=== PATIENT | female | born 1995 | race Caucasian/White ===

== ENCOUNTER 2021-02-15 15:20 | Outpatient (CLI) | payer OTHER, SELFPAY ==
[2021-02-15 16:16] LABS: Basophils Absolute Auto 0.05 K/mm3 (0.00-0.10); Basophils Percent Auto 0.3 % (0.0-1.0); Eosinophils Percent Auto 0.7 % (1.0-6.0); Hematocrit 41.1 % (35.0-49.0); Hemoglobin 13.5 g/dL (12.0-15.0); Immature Granulocyte Absolute 0.05 K/mm3 (0.00-0.00); Immature Granulocyte Percent A 0.3 % (0.0-0.0); Lymphocytes Absolute Auto 2.03 K/mm3 (1.10-4.50); Lymphocytes Percent Auto 14.1 % (18.0-42.0); Mean Corpuscular HGB Conc 32.8 g/dL (32.0-36.0); Mean Corpuscular Hemoglobin 28.7 pg (27.0-31.0); Mean Corpuscular Volume 87.3 fL (78.0-102.0); Mean Platelet Volume 9.5 fl (9.2-11.8); Monocytes Percent Auto 6.9 % (2.0-11.0); Neutrophils Absolute Auto 11.2 K/mm3 (1.7-7.2); Neutrophils Percent Auto 77.7 % (50.0-70.0); Platelet Count Result 293 K/mm3 (150-420); Red Blood Count 4.71 M/mm3 (4.20-5.40); Red Cell Distribution Width 13.2 % (11.6-14.4); White Blood Count 14.4 K/mm3 (4.8-10.8)
[2021-02-15 16:34] LABS: Alanine Aminotransferase 26 U/L (14-59); Albumin Level 3.8 g/dL (3.4-5.0); Alkaline Phosphatase 72 U/L (46-116); Anion Gap 10 mmol/L (8-16); Aspartate Amino Transferase < 10 U/L (15-37); Bilirubin,Total 0.6 mg/dL (0.00-1.00); Blood Urea Nitrogen 10 mg/dL (7-18); Calcium 8.7 mg/dL (8.5-10.1); Carbon Dioxide 28 mmol/L (21-32); Chloride 105 mmol/L (98-108); Estimated Glomerular Filt Rate > 60; Glucose 108 mg/dL (70-99); Osmolality Calculated 296 mOsm/kg (285-295); Potassium 4.2 mmol/L (3.5-5.1); Sodium 143 mmol/L (136-145); Total Protein 7.3 g/dL (6.4-8.2)
== END 2021-02-15 15:21 | disposition home or self-care (01) ==
PROVIDERS: PCP Internal Medicine; Visit Provider Internal Medicine
DX: R19.7 Diarrhea, unspecified (principal)
CPT/HCPCS: 36415; 80053; 85025; 87324

== ENCOUNTER 2021-09-06 09:48 | Outpatient (CLI) | payer OTHER, SELFPAY ==
--- NOTE | ~2021-09-06 | XR_ITS ---
XR foot LT min 3V DATE: 09/06/2021 10:21 INDICATION: Fracture follow-up TECHNIQUE: 4 views COMPARISON: None FINDINGS: No fracture or dislocation, periosteal reaction or bone destruction. No erosive change. IMPRESSION: Negative Reviewed, dictated and finalized at location B. IMPRESSION: Negative
== END 2021-09-06 09:49 | disposition home or self-care (01) ==
LOC: CHSIMG 09:51
PROVIDERS: PCP Internal Medicine; Visit Provider Internal Medicine
DX: S92.352D Displaced fracture of fifth metatarsal bone, left foot, subsequent encounter for fracture with routine healing (principal)
CPT/HCPCS: 73630

== ENCOUNTER 2021-10-05 09:46 | Outpatient (CLI) | payer OTHER, SELFPAY ==
--- NOTE | ~2021-10-05 | XR_ITS ---
XR foot LT min 3V DATE: 10/05/2021 10:02 INDICATION: Fracture follow up TECHNIQUE: 4 views COMPARISON: 09/06/2021 left foot FINDINGS: No fracture or dislocation, periosteal reaction or bone destruction. IMPRESSION: Negative Reviewed, dictated and finalized at location A. IMPRESSION: Negative
== END 2021-10-05 09:47 | disposition home or self-care (01) ==
LOC: CHSIMG 09:48
PROVIDERS: PCP Internal Medicine; Visit Provider Internal Medicine
DX: S92.902D Unspecified fracture of left foot, subsequent encounter for fracture with routine healing (principal)
CPT/HCPCS: 73630

== ENCOUNTER 2024-06-10 08:26 | Outpatient (CLI) | payer OTHER, SELFPAY ==
--- OUTSIDE RECORDS SUMMARY | 2024-06-10 08:31 | XMS_ITS | Encounter Summary ---
Author Organization [facility] Address [address] [place] [address] Care Team Providers Care Rn Surgery Name Role Phone López Hutchinson MD Primary Care Provider [phone] Reason for Visit * Reason Onset Date Comments Scheduling 11/27/2023 EGD Encounter Details Date Type Department Care Team (Late st Contact Info) Description 11/27/2023 Telephone [facility] [address] [place] [address] Sandy Johnson MD [address] [place] [address] Scheduling (EGD) Social History Tobacco Use Types Packs/Day Years Used Date Smoking Tobacco: Former Cigarettes Q uit: 01/26/2019 Smokeless Tobacco: Never Alcohol Use Standard Drinks/Week Comments No 0 (1 standard drink = 0.6 oz pur e alcohol) Overall Financial Resource Strain (CARDIA) Answe r Date Recorded How hard is it for you to pa y for the very basics like food, housing, medical care, and heating? Not hard at all 07/08/2022 PHQ-2 Answer Date Recorded Patient Health Questionnaire-2 Score 1 07/30/2023 [facility] [place] [facility] Occupat ional [facility] - Occupational Stress Questionnaire Answer Date Recorded Do you feel stress - tense, restless, nervous, or anxious, or unable to sleep at night because your mind is troubled all the time - these days? Not at all 07/08/2022 Hunger Vital Sign Answer Date Recorded Within the past 12 months, y ou worried that your food would run out before you got the money to buy more. Never true 07/09/19 23 Within the past 12 months, t he food you bought just didn't last and you didn't have money to get more. Never true 07/08/2022 PRAPARE - Transportation Answer Date Re corded In the past 12 months, has l ack of transportation kept you from medical appointments or from getting medications? No 06/26 In the past 12 months, has l ack of transportation kept you from meetings, work, or from getting things needed for daily living? No 07/08/2022 Housing Stability Vital Sign Answer Jaden e Recorded In the last 12 months, was t here a time when you were not able to pay the mortgage or rent on time? No 07/08/2022 In the last 12 months, how many places have you lived? 1 07/08/2022 In the last 12 months, was t here a time when you did not have a steady place to sleep or slept in a half-way (including now)? No 07/08/2022 Sex and Gender Information Value Date Recorded Sex Assigned at Not on file Gender Identity Not on file Sexual Orientation Not on file documented as of this encounter Functional Status Functional Status Response Date of Assess ment Is person deaf or have serious hearing difficult y? No 07/10/2022 Is person blind or have serious difficulty seein g? No 07/10/2022 Does person have serious dif ficulty walking/climbing stairs? No 07/10/2022 Does person have difficulty dressing/bathing? No 07/10/2022 Does person have difficulty doing errands alone? No 07/10/2022 Cognitive Status Response Date of Assessm ent Does person have difficulty concentrating/remembering/making decisions? No 07/10/2022 documented as of this encounter Miscellaneous Notes * Telephone Encounter - Mirela Castanon - 11/27/2023 12:02 PM CDT [facility] call #[phone] currently is not a working number. Called #[phone], [facility] This is [facility] [employer]. Please have Itzel call #[phone] Sent Opentopic message cancelling post op EGD scheduled with Dr. Johnson for 12/03/23. is out - vacation documented in this encounter Plan of Treatment Upcoming Encounters Date Type Department Care Team (Latest Contact Info) Description 06/30/2024 8:55 AM POST ANESTHESIA ROOM NURSE Hospital Encounter [facility] [address] [place] [address] Sandy Johnson MD [address] [place] [address] Surgery General 06/30/2024 8:55 AM POST ANESTHESIA ROOM NURSE - 06/30/2024 9:21 AM POST ANESTHESIA ROOM NURSE Surgery [facility] [address] [place] [address] Sandy Johnson MD [address] [place] [address] ESOPHAGOGASTRODUODENOSCOPY WITH BIOPSY 07/13/2024 1:00 PM CDT Office Visit [facility] [address] [place] [phone] Bianca Rico, TOOL POLISHER-FOOD SERVICE AIDE [address], [place] [address] 07/13/2024 1:30 PM CDT Clinical Support [facility] [address] [place] [phone] Scheduled Procedures Name Priority Associated Diagnoses Date/Ti nc ESOPHAGOGASTRODUODENOSCOPY ( EGD) BIOPSY Gastroesophageal reflux disease, unspecified whether esophagitis present 06/30/2024 8:55 AM POST ANESTHESIA ROOM NURSE documented as of this encounter Visit Diagnoses Not on filedocumented in this encounter Care Teams Rn Surgery Relationship Specialty Start Date End Date López Hutchinson MD [address] [place] [address] PCP - General Internal Medicine 11/15/21 documented as of this encounter
--- OUTSIDE RECORDS SUMMARY | 2024-06-10 08:31 | XMS_ITS ---
Author Organization [facility] Address [address] [place] [address] Care Team Providers Care Pump Servicer Supervisor Name Role Phone Jayde Navarrete Primary Care Provider REASON FOR VISIT Refill Medications Medication SIG (Take, Route, Frequency, Duration) Notes Start Date End Date Status ARIPiprazole 2 MG 1 tablet Orally Once a day for 7 days Active Venlafaxine HCl ER 150 MG 1 capsule with food Orally Once a day for 7 days Active Encounters Encounter Location Date Provider Diagnosis [address] [address] 04/01/2024 Jayde Navarrete Depression, major, recurrent F33.9 Assessments Encounter Date Diagnosis (ICD Code) Assessment Notes Treatment Notes Treatment Clinical Notes Section Notes 04/01/2024 Depression, major, recurrent (ICD-10 - F33.9) Plan Of Treatment Medication Medication Name Sig Start Date Stop Date Notes ARIPiprazole 2 MG 1 tablet Orally Once a day for 7 days Venlafaxine HCl ER 150 MG 1 capsule with food Orally Once a day for 7 days Progress Notes * SEAriel ARIZMENDIpennyDOB: [birth year] (29 yo F)Acc No.[id number]:04/01/2024 Patient: Itzel GROSS :1995 A ge:29 Y S ex:Female Address:[address] [place] [address] * Refills Continue ARIPiprazole Tablet, 2 MG, Orally, 7 Tablet, 1 tablet, Once a day, 7 days Continue Venlafaxine HCl ER Capsule Extended Release 24 Hour, 150 MG, Orally, 7 Capsule, 1 capsule with food, Once a day, 7 days * true * Date: Generated for Paulo albert/Casimiro/Lucy on: 0 06/10/2024 08:31 AM FINANCIAL EXAMINER
--- OUTSIDE RECORDS SUMMARY | 2024-06-10 08:31 | XMS_ITS | Patient Health Record ---
Author Organization [facility] Address [address] [place] [address] Care Team Providers Care Vice President Network Development Name Role Phone Jayde Navarrete Primary Care Provider [phone] Caitie Pacheco Unavailable [phone] Kaitlin Alcaraz Unavailable [phone] Allergies No Known Allergies Reason For Referral Reason Start individual the rapy Diagnosis 1 Depression, major, r ecurrent (F33.9) Referral Organization [facility] Referring Provider First Name Jayde Referring Provider Last Name Landon Referring Provider Speciality Psychiatry Referred Provider Specialty Behavioral [facility] Clinical Notes Dee Campos 09/17 01:19:02 PM >Staff SAMSON talks to Consumer. Consumer is in agreement with referral. Staff SAMSON provides Consumer information on how to get connected with [facility] therapy program. When asked, Consumer is in agreement with getting connected to [facility] to begin process. Consumer transferred. Referral addressed, closing. Referral Priority Routine Reason Needs assistance get ting a new therapist through [facility] Diagnosis 1 Depression, major, r ecurrent (F33.9) Referral Organization [facility] Referring Provider First Name Caitie Referring Provider Last Name Tara Referring Provider Speciality Behavioral Health Referred Provider Specialty Behavioral [facility] Clinical Notes Silvia Faulkner 01/14/2024 11:11:18 AM >[facility] received a referral for a client to initiate therapy. She has a provider currently, but she is wanting someone new. The client realizes that she needs to call [facility] to inquire about switching therapists. Referral Priority Routine Medications Medication SIG (Take, Route, Frequency, Duration) Notes Start Date End Date Status Calcium 500-2.5 MG-MCG 1 tablet with a m eal Orally Once a day Active Multivitamin - 1 tablet Orally Once a day Active Venlafaxine HCl ER 150 MG 1 capsule with food Orally Once a day for 30 days Active ARIPiprazole 2 MG 1 tablet Orally Once a day for 30 days Active hydrOXYzine HCl 25 MG 1-2 tablets as nee ded Orally twice a day for 30 days 04/06/2024 Active Social History Tobacco Use: Social History Observation Description Date Details (start date - stop date) Never Smoker NA - NA Tobacco Control (Standard) Question Answer Notes Tobacco use: Nonsmoker AUDIT-C (Standard) Question Answer Notes Did you have a drink containing alcohol in the p ast year? No Points 0 Interpretation Negative Problems Problem Type SNOMED Code ICD Code Onset Dates Problem Status W/U Status Risk Notes Problem Attention deficit hyperactivity disorder (809583145) ADHD (attention deficit hyperactivity disorder) (F90.9) Active confirmed Problem Generalized anxiety disorder (88270190) TAMAR (generalized anxiety disorder) (F41.1) Active confirmed Problem Recurrent major depression (67141319) Depression, major, recurrent (F33.9) Active confirmed Encounters Encounter Location Date Provider Diagnosis [address] [address] 06/24/2023 Kaitiln Alcaraz TAMAR (generalized anxiety disorder) F41.1 ; Depression, major, recurrent F33.9 and ADHD (attention deficit hyperactivity disorder) F90.[address] [address] 08/05/2023 Jayde Navarrete TAMAR (generalized anxiety disorder) F41.1 ; Depression, major, recurrent F33.9 and ADHD (attention deficit hyperactivity disorder) F90.[address] [address] 09/18/2023 Jayde Navarrete TAMAR (generalized anxiety disorder) F41.1 ; Depression, major, recurrent F33.9 and ADHD (attention deficit hyperactivity disorder) F90.[address] [address] 12/16/2023 Jayde Navarrete TAMAR (generalized anxiety disorder) F41.1 ; Depression, major, recurrent F33.9 and ADHD (attention deficit hyperactivity disorder) F90.9 [facility] [address], [place] [address] 01/13/2024 Kymelissa Navarrete TAMAR (generalized anxiety disorder) F41.1 ; Depression, major, recurrent F33.9 and ADHD (attention deficit hyperactivity disorder) F90.9 [facility] [address], [place] [address] 04/06/2024 Jayde Navarrete TAMAR (generalized anxiety disorder) F41.1 ; Depression, major, recurrent F33.9 and ADHD (attention deficit hyperactivity disorder) F90.[address] [address] 06/17/2023 Kaitlin Alcaraz Depression, major, recurrent F33.[address] [address] 09/10/2023 Jayde Navarrete Depression, major, recurrent F33.[address] [address] 09/18/2023 Caitie Pacheco [facility] [address] [place] [address] 12/05/2023 Jayde Navarrete [facility] [address], [place] [address] 12/16/2023 Jayde Navarrete [address] [address] 04/01/2024 Jayde Navarrete Depression, major, recurrent F33.9 Assessments Encounter Date Diagnosis (ICD Code) Assessment Notes Treatment Notes Treatment Clinical Notes Section Notes 04/01/2024 Depression, major, recurrent (ICD-10 - F33.9) 04/06/2024 TAMAR (generalized anxiety disorder) (ICD-10 - F41.1) 08/05/2023 TAMAR (generalized anxiety disorder) (ICD-10 - F41.1) 06/24/2023 TAMAR (generalized anxiety disorder) (ICD-10 - F41.1) 06/17/2023 Depression, major, recurrent (ICD-10 - F33.9) 01/13/2024 TAMAR (generalized anxiety disorder) (ICD-10 - F41.1) 12/16/2023 TAMAR (generalized anxiety disorder) (ICD-10 - F41.1) 09/18/2023 TAMAR (generalized anxiety disorder) (ICD-10 - F41.1) 09/10/2023 Depression, major, recurrent (ICD-10 - F33.9) 09/18/2023 Depression, major, recurrent (ICD-10 - F33.9) 12/16/2023 Depression, major, recurrent (ICD-10 - F33.9) 01/13/2024 Depression, major, recurrent (ICD-10 - F33.9) 06/24/2023 Depression, major, recurrent (ICD-10 - F33.9) Reasons, potential benefits, interactions and side effects of all medications were discussed. The Patient/Guardian asked appropriate questions, appeared to understand the answers, and decided to accept the treatment and continue being followed. Alternatives and expected course without treatment were reviewed. The Patient/Guardian is aware of the need to contact the office or return for an earlier appointment if any problems or concerns arise. May also contact the 24-hour crisis hotline ([facility] refer to the closest emergency room or call 911 if new symptoms arise of existing symptoms worsen. The Patient/Guardian is aware that this would apply to symptoms like: suicidal ideation, homicidal ideation, high risk behaviors, manic symptoms, psychotic symptoms, physical symptoms, or any other symptoms that may be dangerous to self or others. Greater than 50% of time spent on coordination and counseling where psychopharmacology as well as psychotherapeutic interventions were discussed along with review of treatments in the past. Education provided concerning need for adequate hydration. Patient/Guardian verbalized understanding of education, treatment plan and follow up. May self-administer or be administered own oral medication per [facility]. Provided informed consent with understanding of side effects, risks and benefits as well as alternative treatments as previously discussed and with the above recommended medications ang other aspects of the treatment program. Agrees to return sooner if symptoms worsen or suicidal or homicidal ideations occur. support and education provided concerning illness and treatment plan, risks and benefits, pt verbalized understanding of the same and agreeable 08/05/2023 Depression, major, recurrent (ICD-10 - F33.9) 06/24/2023 ADHD (attention deficit hyperactivity disorder) (ICD-10 - F90.9) 04/06/2024 Depression, major, recurrent (ICD-10 - F33.9) 08/05/2023 ADHD (attention deficit hyperactivity disorder) (ICD-10 - F90.9) 04/06/2024 ADHD (attention deficit hyperactivity disorder) (ICD-10 - F90.9) History: Hx of taking 10 mg of Lexapro (ineffective, trialed 1 year), Zoloft ( could not function), Strattera 2023 (nausea). 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 Hx of diagnostic hx of bipolar disorder, depression. Denies hx of abuse/trauma. Denies any previous psychiatric inpatient stays, denies hx of SI/SA/SIB/HI, AVH/paranoia. Has two sons, 8 and 4 (who have ADHD/autism). 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 Substance use includes cannabis, vaping daily. Today's visit: Patient is a 29-year-old female who presents for a psychiatric follow-up over the phone and is located in [place]. Previously seen on 01/13/2024 and during this appt was increased on Venlafaxine to 150 mg with a referral to a new therapist. Previous PHQ-9 score of 14, today is 21. Presents with worsening depression and anxiety in the setting of inconsistent medication adherence (50% of doses) and ongoing psychosocial stressors. She has a history of depression that has been present for months but reports new onset of severe anxiety for the past week. She denies any acute safety concerns but does endorse poor self-care and functional impairment. Will continue current dose of Effexor 150mg daily and Abilify 2 mg daily with a plan for improved adherence. Discussed strategies for remembering to take medication including keeping it by the kitchen sink and using a reminder system. Will add hydroxyzine 25-50 mg BID as needed for anxiety. Encouraged continuing with plans to establish care with a new therapist on 04/15/2024 to address ongoing stressors and coping skills. Unable to complete AIMS due to nature of appt, denies any irregular muscle movements; would benefit from an in person appointment. No acute safety concerns the time of this appt, she is agreeable to treatment plan and was provided an opportunity to ask questions. May self-administer medications or be administered own oral medications per [facility] protocols. Provided informed consent with understanding of side effects, adverse effects, risks and benefits as well as alternative treatments as previously discussed and with the above recommended medications & other aspects of the treatment program. Agrees to return sooner if symptoms worsen or suicidal or homicidal ideations occur. 12/16/2023 ADHD (attention deficit hyperactivity disorder) (ICD-10 - F90.9) History: Hx of taking 10 mg of Lexapro (ineffective, trialed 1 year), Zoloft ( could not function), Strattera 2023 (nausea). 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 Hx of diagnostic hx of bipolar disorder, depression. Denies hx of abuse/trauma. Denies any previous psychiatric inpatient stays, denies hx of SI/SA/SIB/HI, AVH/paranoia. Has two sons, 8 and 4 (who have ADHD/autism). 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 Substance use includes cannabis, vaping daily. Today's visit: Patient is a 28-year-old female who presents for a psychiatric follow-up over the phone and is located in [place]. Previously seen on 09/18/2023 and during this appt was increased on Prozac to 40 mg, continued on Lamictal 150 mg and referred for individual therapy. Previous PHQ-9 score of 15, today is 19. Previous tamar 13, today is 19. Recently hospitalized, 12/04/23 until the 15 for SIB and thoughts of SI. Worsening depressive and anxiety symptoms in the context of psychosocial stressors. Medications adjusted to Effexor for anxiety/depression and Abilify for mood stabilization while hospitalized and discontinued Lamictal and Prozac. Pt is hopeful about medication changes, denies any side effects and is taking them daily. Encouraged ongoing therapy, patient to contact [facility] to request switch therapists given poor fit with current one. She is requesting work note to be filled, she will send to work email. Unable to complete AIMS due to nature of appt, denies any irregular muscle movements; would benefit from an in person appointment. No acute safety concerns the time of this appt, she is agreeable to treatment plan and was provided an opportunity to ask questions. May self-administer medications or be administered own oral medications per [facility] protocols. Provided informed consent with understanding of side effects, adverse effects, risks and benefits as well as alternative treatments as previously discussed and with the above recommended medications & other aspects of the treatment program. Agrees to return sooner if symptoms worsen or suicidal or homicidal ideations occur. 09/18/2023 ADHD (attention deficit hyperactivity disorder) (ICD-10 - F90.9) History: Hx of taking 10 mg of Lexapro (ineffective, trialed 1 year), Zoloft ( could not function), Strattera 2023 (nausea). 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 Hx of diagnostic hx of bipolar disorder, depression. Denies hx of abuse/trauma. Denies any previous psychiatric inpatient stays, denies hx of SI/SA/SIB/HI, AVH/paranoia. Has two sons, 8 and 4 (who have ADHD/autism). 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 Substance use includes cannabis, vaping daily. Today's visit: Patient is a 28-year-old female who presents for a psychiatric follow-up over the phone and is located in [place]. Previously seen on 08/05/2023 and was continued on Prozac 20 mg daily, increased Lamictal to 150mg daily, and stopped Strattera 40mg due to nausea. PHQ-9 was 14, today is 15. TAMAR-7 was 15, today is 13. Pt feels Lamictal has been helpful in managing irritability and mood stabilization. Recent interpersonal stressors contributing to increased anxiety and depressive symptoms. Estimates 5 hours of sleep on average, feels energy is moderate, can complete daily activities. Continued to struggle with focus and concentration - discussed evidence based practice is stabilizing mood symptoms before treating ADHD sx. Pt would like to increase Prozac to 40 mg to further target depressive and anxiety symptoms and would also like referral for individual therapy. Denies any side effects from Lamictal or Prozac. No acute safety concerns at the time of this appt, she was provided an opportunity to ask questions and is in agreement with treatment plan. May self-administer medications or be administered own oral medications per [facility] protocols. Provided informed consent with an understanding of side effects, adverse effects, risks, and benefits as well as alternative treatments as previously discussed and with the above recommended medications & other aspects of the treatment program. Agrees to return sooner if symptoms worsen or suicidal or homicidal ideations occur. 01/13/2024 ADHD (attention deficit hyperactivity disorder) (ICD-10 - F90.9) History: Hx of taking 10 mg of Lexapro (ineffective, trialed 1 year), Zoloft ( could not function), Strattera 2023 (nausea). 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 Hx of diagnostic hx of bipolar disorder, depression. Denies hx of abuse/trauma. Denies any previous psychiatric inpatient stays, denies hx of SI/SA/SIB/HI, AVH/paranoia. Has two sons, 8 and 4 (who have ADHD/autism). 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 Substance use includes cannabis, vaping daily. Today's visit: Patient is a 28-year-old female who presents for a psychiatric follow-up over the phone and is located in [place]. Previously seen on 12/16/2023 and during this appt was continued on Abilify 2 mg and Effexor 75 mg. Previous PHQ-9 score of 19, today is 14. Reports some improvement from last visit in her depression/anxiety sx with medication changes; does report interpersonal and financial stressors that continue to play a factor in her mood stability.Has been taking Effexor 75mg daily for approximately 6 weeks with some benefit, will increase to 150mg daily to help target sx further. Continue Abilify 2mg daily for augmentation of depression, monitor for weight gain. Encourage continued use of coping skills learned in hospital. Referred to [facility] for assistance with finding new therapist. Unable to complete AIMS due to nature of appt, denies any irregular muscle movements; would benefit from an in person appointment. No acute safety concerns the time of this appt, she is agreeable to treatment plan and was provided an opportunity to ask questions. May self-administer medications or be administered own oral medications per [facility] protocols. Provided informed consent with understanding of side effects, adverse effects, risks and benefits as well as alternative treatments as previously discussed and with the above recommended medications & other aspects of the treatment program. Agrees to return sooner if symptoms worsen or suicidal or homicidal ideations occur. 08/05/2023 Other History: Hx of taking 10 mg of Lexapro (ineffective, trialed 1 year), Zoloft ( could not function), Strattera 2023 (nausea). 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 Hx of diagnostic hx of bipolar disorder, depression. Denies hx of abuse/trauma. Denies any previous psychiatric inpatient stays, denies hx of SI/SA/SIB/HI, AVH/paranoia. Has two son, 8 and 4 (who have ADHD/autism). 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 Substance use includes cannabis, vaping daily. Today's visit: Patient is a 28-year-old female who presents for a psychiatric follow-up over the phone and is located in [place], is a transfer of care and this is my first-time meeting with this patient. Previously seen on 06/24/23 by Kaitlin PASCUAL and during this appt was increased on Lamictal to 100 mg, Started on Strattera 40 mg, and continued on Prozac 20 mg for the diagnoses listed of TAMAR, MDD, ADHD. Initial PHQ-9 on score of 24, today is 14 (down 10 points), initial TAMAR-7 on 05/20/23 score of 21, today is 15, MDQ with 8 yes. Completed Adult Questionnaire ADHD screening today. Pt reports Strattera causing nausea and not liking how it makes her feel, has self discontinued. Reports benefit from Lamictal and Prozac for mood stabilization and wishes to continue taking. Does not appear to have any clear manic episodes, some symptoms reported could possibly be related to hypomania however at this time her symptoms mostly can be attributed to anxiety, depression and ADHD. Further pt denies feeling energized, activated or impulsive while taking SSRIs. Will attempt to clarify all diagnoses during future appts. Current depressive episode started 4 years ago. Reports still having irritability, depression, anxiety although less. She is agreeable to increasing Lamictal to 150 mg to help target mood symptoms further. Patient agrees with treatment plan and is provided an opportunity to ask questions. No acute safety concerns at the time of this appt. May self-administer medications or be administered own oral medications per [facility] protocols. Provided informed consent with an understanding of side effects, adverse effects, risks, and benefits as well as alternative treatments as previously discussed and with the above recommended medications & other aspects of the treatment program. Agrees to return sooner if symptoms worsen or suicidal or homicidal ideations occur. 09/18/2023 Other Plan Of Treatment No Information Insurance Providers Payer Name Payer Address Payer Phone Subscriber Number Group Number Insured Name Patient Relationship to Insured Coverage Start Date Coverage End Date [facility] Claims Department [address] [place] [address] [id number] Itzel Williamson Self - patient is the insured 3 4 [facility] Claims Department [address] [place] [address] [id number] Itzel Williamson Self - patient is the insured 4 [employer] [address] [place] [address] [id number] Itzel Williamson Self - patient is the insured 4 [facility] Claims Department [address] [place] [address] [id number] Itzel Williamson Self - patient is the insured 4 4 [employer] [address] [place] [address] [id number] Itzel Williamson Self - patient is the insured 4 4 Medical (General) History Surgical History Surgery Date(Month/Year) Gallbladder Removed Gastric Sleeve 2022 Hospitalization History Reason Date(Month/Year) Natural Child x 2 Gastric Sleeve 2022 Gallbladder Removed C-Diff 2021
--- OUTSIDE RECORDS SUMMARY | 2024-06-10 08:31 | XMS_ITS | Data Portability ---
Author Organization [employer] , [facility] Address [address] [place] [address] Assessment No assessment recorded. 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 Procedures None recorde d. Surgeries None recorde d. Imaging None recorde d. Medication Orders phenter mine 37.5 mg tablet 2022 023 [id number], [address] [facility] [address], [place], [address], 06/09/2024 14:14:34 Ortho Microno r 0.35 mg tablet 2022 023 [id number], [address], [address], 06/09/2024 14:14:28 Macrobi d 100 mg capsule [email or web address] [id number], [address] [facility], [place], [address], 06/09/2024 14:14:31 Lo Loestri n Fe 1 mg-10 mcg (24)/10 mcg (2) tablet [email or web address] [id number], [address] [facility] [address], [place], [address], 06/09/2024 14:14:24 ALIDA (28) 3 mg-0.02 mg tablet [address] [address] In [facility], [address] [address], [place], [address], 06/05/2022 10:57:37 Lexapro 10 mg tablet [email or web address] [id number], [address] [facility], [place], [address], 06/09/2024 14:13:49 Patient TargetsNo targets recorded. Patient Instructions Encounter Date Encounter Id Patient Instructions Last Modified By Organization Details Last Modified Time 10/10/2021 [id number] combination kevan h control pills: care instructions [email or web address] Not available 10/10/2021 16:16:22 Reason for Referral None Reported. Results Created Date Observation Date Name Description Value Unit Range Abnormal Flag Note LastModifiedBy Organization Detail LastModifiedTime 10/11/19 22 10/10/2021 pregn conor test, urine HCG negati ve Not Available [facility] o [address] [facility], [place], [address], 10/10/2021 15:14:13 06/05/19 23 06/05/2022 urina lysis , dipst ick Leukocytes Trace Not Available [address], [place], [address], 06/05/2022 11:35:19 06/05/19 23 06/05/2022 urina lysis , dipst ick Nitrite negati ve Not Available [address], [place], [address], 06/05/2022 11:35:19 06/05/19 23 06/05/2022 urina lysis , dipst ick Urobilinogen .2 Not Available [address], [place], [address], 06/05/2022 11:35:19 06/05/19 23 06/05/2022 urina lysis , dipst ick Protein Trace Not Available [address], [place], [address], 06/05/2022 11:35:19 06/05/19 23 06/05/2022 urina lysis , dipst ick pH 8.0 Not Available [address], [place], [address], 06/05/2022 11:35:19 06/05/19 23 06/05/2022 urina lysis , dipst ick Blood Small Not Available [address], [place], [address], 06/05/2022 11:35:19 06/05/19 23 06/05/2022 urina lysis , dipst ick Specific [place] 1.015 Not Available [facility] [address], [place], [address], 06/05/2022 11:35:19 06/05/19 23 06/05/2022 urina lysis , dipst ick Ketone Negati ve Not Available [address], [place], [address], 06/05/2022 11:35:19 06/05/19 23 06/05/2022 urina lysis , dipst ick Bilirubin Modera te Not Available [address], [address], 06/05/2022 11:35:19 06/05/19 23 06/05/2022 urina lysis , dipst ick Glucose Negati ve Not Available [address], [place], [address], 06/05/2022 11:35:19 06/05/19 23 06/05/2022 urina lysis , dipst ick Appearance Clear Not Available [address], [address], 06/05/2022 11:35:19 06/05/19 23 06/05/2022 urina lysis , dipst ick Color Yellow Not Available [address], [address], 06/05/2022 11:35:19 Result Notes None recorded. Problems No Known Problems Procedures Surgical History Date Name Laterality Status Provider Name and Address Organization Details Recorded Time 01/19/20 20 Date of Last Pap Smear completed Leah Gunderson [facility] [employer] [facility] 10/10/2021 15:13:04 03/07/20 17 procedure on gallbladder completed Chelsie Puga [place] [employer] [place] 08/08/2021 12:11:41 laparoscopic sleeve gastrectomy completed Elyssa Nelson [place] [employer] [place] 06/09/2024 14:17:34 Imaging Results None recorded. Procedure Notes None recorded. Medical Equipment None Reported. Allergies No known drug allergies Medications Name Sig Start Date Stop Date Status Note LastModified by Organization Details LastModified Time fluoxetin e 40 mg capsule TAKE 1 CAPSULE BY MOUTH EVERY DAY FOR 30 DAYS 06/09 completed Not Available Not Available Not Available amoxicill in 500 mg capsule TAKE 2 CAPSULES NOW THEN TAKE 1 CAPSULE THREE TIMES A DAY UNTIL GONE 08/08 completed Not Available Not Available Not Available lamotrigi ne 150 mg tablet TAKE 1 TABLET BY MOUTH EVERY DAY FOR 30 DAYS 06/09 completed Not Available Not Available Not Available venlafaxi ne ER 75 mg capsule,e xtended release 24 hr 06/09 completed Not Available Not Available Not Available clindamyc in HCl 300 mg capsule TAKE 1 CAPSULE BY MOUTH 3 TIMES A DAY 08/08 completed Not Available Not Available Not Available ibuprofen 800 mg tablet TAKE 1 TABLET BY MOUTH EVERY 6 HOURS NEEDED 08/08 completed Not Available Not Available Not Available chlorzoxa zone 500 mg tablet TAKE 1 TABLET BY MOUTH 3 TIMES A DAY NEEDED 08/08 completed Not Available Not Available Not Available hydrocodo ne 5 mg-acetam inophen 325 mg tablet TAKE 1 TABLET BY MOUTH FOUR TIMES A DAY NEEDED FOR PAIN 08/08 completed Not Available Not Available Not Available fluoxetin e 10 mg tablet TAKE 1 TABLET BY MOUTH EVERY DAY 06/09 completed Not Available Not Available Not Available Diflucan 150 mg tablet take 1 tablet (150 mg) PO and repeat in five days if necessar y 01/17 completed Diflucan 150 mg oral tablet RxNorm: 330823 Allow Substitu tion: True Refill Denied: No Edited by: Leah Mae ) on 01/18/20 Stopped by: Leah Mae ) on 01/18/20 20 Not Available Not Available Not Available venlafaxi ne ER 150 mg capsule,e xtended release 24 hr TAKE 1 CAPSULE BY MOUTH EVERY DAY WITH FOOD FOR 30 DAYS 06/09 completed Not Available Not Available Not Available metronida zole 500 mg tablet TAKE 1 TABLET BY MOUTH THREE TIMES A DAY 08/08 completed Not Available Not Available Not Available phentermi ne 37.5 mg tablet TAKE 1/2 OF A TABLET BY MOUTH TWICE A DAY 06/09 completed Not Available Not Available Not Available vancomyci n 125 mg capsule TAKE 1 CAPSULE (125 MG TOTAL) BY MOUTH 4 (FOUR) TIMES DAILY FOR 9 DAYS. 08/08 completed Not Available Not Available Not Available lamotrigi ne 25 mg tablet TAKE 1 TABLET BY MOUTH EVERY DAY active Not Available Not Available No t Available Vitamin tablet Take 1 taablet by mouth daily. May substitu tue for any free vitamin. 04/23 completed Multivit montgomery Tablet Allow Substitu tion: True Refill Denied: No Refill DateOccu rred: 07/17/19 Edited by: Nori Holliday ) on 04/23/20 Stopped by: Nori Holliday ) on 04/23/20 Not Available Not Available Not Available Zofran 8 mg tablet Take 1/2 - 1 tablet(s ) by mouth q6hrs prn 09/11 completed Zofran 8mg Tablet RxNorm: 760760 Allow Substitu tion: True Refill Denied: No Not Available Not Available Not Available rizatript an 10 mg disintegr ating tablet DISSOLVE 1 TABLET ON TOP OF TONGUE ONCE, MAY REPEAT EVERY 2 HRS MAX 30 MG/24 HRS active Not Available Not Available No t Available ferrous sulfate 325 mg (65 mg iron) tablet TAKE 3 TABLETS BY ORAL ROUTE ONCE A DAY 08/08 completed Not Available Not Available Not Available hydroxyzi ne HCl 25 mg tablet TAKE 1-2 TABLETS BY MOUTH TWICE A DAY NEEDED active Not Available Not Available No t Available methylpre dnisolone 4 mg tablets in a dose pack TAKE 6 TABLETS ON DAY 1 DIRECTED ON PACKAGE AND DECREASE BY 1 TAB EACH DAY FOR A TOTAL OF 6 DAYS 08/08 completed Not Available Not Available Not Available norethind arturo (contrace ptive) 0.35 mg tablet TAKE 1 TABLET BY MOUTH EVERY DAY 06/09 completed Not Available Not Available Not Available dicloxaci llin 250 mg capsule take 1 capsule (250 mg) by oral route every 6 hours 01/17 completed dicloxac illin 250 mg oral capsule RxNorm: 726598 Allow Substitu tion: True Refill Denied: No Edited by: Leah Mae ) on 01/18/20 20 Stopped by: Leah Mae ) on 01/18/20 20 Not Available Not Available Not Available fluoxetin e 20 mg capsule TAKE 1 CAPSULE BY MOUTH EVERY DAY active Not Available Not Available No t Available lamotrigi ne 100 mg tablet TAKE 1 TABLET BY MOUTH EVERY DAY FOR 30 DAYS 06/09 completed Not Available Not Available Not Available metoclopr amide 10 mg tablet take 1 tablet (10 mg) by oral route tid 04/23 completed metoclop ramide HCl 10 mg oral tablet RxNorm: 965669 Allow Substitu tion: True Refill Denied: No Edited by: Nori Holliday ) on 04/23/20 Stopped by: rena (Nori Carney ) on 04/23/20 Not Available Not Available Not Available amoxicill in 500 mg-potass ium clavulana te 125 mg tablet TAKE 1 TABLET BY MOUTH TWICE A DAY 08/08 completed Not Available Not Available Not Available sumatript an 6 mg/0.5 mL subcutane ous pen injector INJECT 0.5ML INTO THE SKIN EVERY HOUR NEEDED 08/08 completed Not Available Not Available Not Available NuvaRing 0.12 mg-0.015 mg/24 hr vaginal insert 1 ring vaginaly once a month leave in place for 24-32 days then remove for [address] another. You may also remove ring and replace immediat adria to avoid having a period 08/08 completed NuvaRing 0.12-0.0 15 mg/24 hr Vaginal Ring, Vaginal RxNorm: [id number] Allow Substitu tion: True Refill Denied: No Edited by: Mick Wright) on 01/18/20 20 Stopped by: Mick Wright) on Not Available Not Available Not Available escitalop santiago 10 mg tablet TAKE 1 TABLET BY MOUTH EVERY DAY 06/09 completed Not Available Not Available Not Available Strattera 40 mg capsule TAKE 1 CAPSULE BY MOUTH EVERY DAY IN THE MORNING FOR 30 DAYS 06/09 completed Not Available Not Available Not Available nitrofura ntoin monohydra te/macroc rystals 100 mg capsule TAKE 1 CAPSULE BY MOUTH EVERY 12 HOURS FOR 7 DAYS 06/09 completed Not Available Not Available Not Available ALIDA (28) 3 mg-0.02 mg tablet Take 1 tablet every day by oral route. 2024 active Not Available Not Available Not Avai lable aripipraz ole 2 mg tablet TAKE 1 TABLET BY MOUTH EVERY DAY FOR 30 DAYS 06/09 completed Not Available Not Available Not Available Vyvanse 30 mg capsule TAKE 1 CAPSULE BY MOUTH EVERY DAY IN THE MORNING active Not Available Not Available No t Available Lo Loestrin Fe 1 mg-10 mcg (24)/10 mcg (2) tablet TAKE 1 TABLET BY MOUTH EVERY DAY 06/09 completed Not Available Not Available Not Available Vitals Date Recorded Body height Body mass index (BMI) Body weight Body temperature Systolic blood pressure Diastolic blood pressure Provider Name and Address Organization Details Last Updated DateTime 2 162.56 cm 34.7 kg/m2 19246.6 6 g 98.7 [degF] 116 mm[Hg] 78 mm[Hg] Chelsie Puga [employer] [facility] 2 12:08:38 Date Recorded Body height Body mass index (BMI) Body weight Systolic blood pressure Diastolic blood pressure Provider Name and Address Organization Details Last Updated DateTime 10/10/2021 162.56 cm 36.4 kg/m2 11911.58 g 118 mm[Hg] 80 mm[Hg] Leah Gunderson [employer] 2 15:11:32 Date Recorded Body height Provider Name an d Address Organization Details Last Updated DateTime 06/05/2022 162.56 cm July Ceballos [employer] [facility] 06/05/2022 10:38:54 Date Recorded Body mass index (BMI) Body weight Body temperature Systolic blood pressure Diastolic blood pressure Provider Name and Address Organization Details Last Updated DateTime 3 42.6 kg/m2 849368. 34 g 97.6 [degF] 112 mm[Hg] 80 mm[Hg] Kye Rees [employer] [facility] 3 10:56:59 Date Recorded Body height Body mass index (BMI) Body weight Systolic blood pressure Diastolic blood pressure Provider Name and Address Organization Details Last Updated DateTime 06/09/2024 162.56 cm 24 kg/m2 27582.29 g 102 mm[Hg] 62 mm[Hg] Elyssa Damon [employer] [facility] 14:20:53 Social History Question Answer Notes LastModified by Organizat ion Details LastModified Time Tobacco Smoking Status Former Smoker Elyssa Damon null, [employer] [facility] 06/09/2024 14:17:18 What Is Your Level Of Alcohol Consumption? None [email or web address] Information not available 06/09/2024 If You Are , What Was Your Level Of Alcohol Consumption Prior To ? None [email or web address] Information not available 06/09/2024 Are You Blind Or Do You Have Difficulty Seeing? No [email or web address] Information not available 06/09/2024 Are You Currently Employed? Yes Information not available 08/08/2021 Are You Deaf Or Do You Have Serious Difficulty Hearing? No [email or web address] Information not available 06/09/2024 What Type Of Diet Are You Following? REGULAR [email or web address] Information not available 06/09/2024 Do You Or Have You Ever Used E-cigarettes Or Vape? 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 2 Information not available 08/08/2021 What Is Your Relationship Status? Single Boyfriend = 8 Years And Fob X 2 Information not available 08/08/2021 Are You Sexually Active? Yes Information not available 08/08/2021 At What Age Did You Start Smoking Tobacco? 13 [email or web address] Information not available 06/09/2024 Do You Or Have You Ever Used Smokeless Tobacco? Never Used Smokeless Tobacco [email or web address] Information not available 06/09/2024 How Much Tobacco Do You Smoke? 1 PPD [email or web address] Information not available 06/09/2024 Do You Use Any Illicit Or Recreational Drugs? No [email or web address] Information not available 06/09/2024 How Many Years Have You Smoked Tobacco? 10 [email or web address] Information not available 06/09/2024 Do You Or Have You Ever Used Any Other Forms Of Tobacco Or Nicotine? Yes [email or web address] Information not available 06/09/2024 Sex: Unknown Functional Status Question Answer Note LastModified by Organization D etails LastModified Time What is your exercise level? None [email or web address] Information not available 06/09/2024 Mental Status None recorded. Family History Relationship Description Onset Age of this Age Resolved Age Notes LastModified by Organization Details LastModified Time Father No current problems or disability [email or web address] Not available 09/26 15:13:32 Mother No current problems or disability [email or web address] Not available 09/26 15:13:32 Medical History Condition Response Other Cancer N High Blood Pressure N Colon Cancer N Cytomegalovirus N Hyperthyroidism N MRSA N Breast Cancer N Herpes (HSV) N Blood Transfusion N Lung Cancer N Depression N Hypothyroidism N Incontinence N Panic Attacks N Neurological Disorder N Deep Vein Thrombosis N Anxiety Disorder N Autoimmune disease N Arthritis N Tuberculosis/Positive PPD N Shingles N Polycystic Ovarian Syndrome N Cervical Cancer N Hematuria N Chlamydia N Stroke N Varicosities N Seasonal allergies N Crohn's Disease N Alzheimer's/Dementia N COPD/Emphysema N Endometriosis N HPV/Genital Warts N IBS (Irritable Bowel Syndrome) N History of Abnormal Pap N High Cholesterol N Liver Disease N Kidney Infection N Fibromyalgia N Ulcer N Kidney Disease N HIV N Gallbladder disease N Sickle Cell Disease/Trait N Von Willebrand disease N ADD/ADHD N Eating Disorder N Anemia N Diabetes Mellitus (non-insulin dependent ) N Multiple Sclerosis N Ovarian Problems N Gonorrhea N Frequent Urinary Tract infections N Osteopenia N Headaches/migraines N GERD (reflux) N Ovarian Cancer N Diabetes (insulin dependent) N Seizures/Epilepsy N Fibroids N Asthma N Heart Attack N Lupus N Endometrial Cancer N Rubella N Blood Clotting Disorder N Bipolar Disorder N Diabetes Mellitus (during ) N Ulcerative Colitis N Hepatitis N Heart Disease N Pulmonary Embolism N RPR N Chicken Pox N Osteoporosis N Gynecological History Statement/Question Response Flow Moderate Date of last HPV 01/19/2020 Date of LMP 05/18/2024 HPV Vaccine N Date of Last Pap Smear 01/19/2020 Duration of Flow (days) 7 Current Control Method None Age at Menarche 13 Obstetrics History GPAL:G 2 P 2 0 0 2 Type Value Full Term 2 Living 2 Total 2 Past Encounters Encounter ID Performer Location Encounter Start Date Encounter Closed Date Diagnosis/Indication Diagnosis SNOMED-CT Code Diagnosis ICD10 Code Diagnosis Note [id number] Mick Banda MD [facility] [address] [place] [address] 08/08/2021 11:39:04 08/27/2021 13:32:46 Premenstrual dysphoric disorder 493104 F32.81 Discussed at length medication options and discussed with them they may feel more depressed for the first week secondary to increased REM sleep and sleep adjustment s. Patient is not suicidal and has no suicidal ideations. we will need to see her back in 8 weeks for a follow up and stressed the importance of close follow up as well as benefits of having a counselor. We discussed a healthy diet and exercise. We discussed length of time to be on medication s as well as to start slow with the medication and take 1/2 the dose for 7-28 days before increasing to full dose as well as tapering off slowly as well over a 1 month period of time Contracept ion care management 612254589 Z30.9 Pt educated on risks which include but not limited to stroke, blood clot or hypertensi on Vs benefits of use, and reviewed ACHES symptoms. Importance of daily administra tion within the same 30 minute time frame reinforced to pt, and on use of condoms or abstinence if dosing schedule is interrupte d. Refills sent. Plan to F/U PRN or at next [employer]. [id number] LITTLE Hutchinson [facility] [place] [address] 10/10/2021 14:58:30 10/10/2021 15:32:02 Irregular periods 75118180 N92.6 Will start on Lo Loestrin to see if this alleviates her sx Generalized headache 162 153533 R51.9 Discussed if headaches continue on Lo Loestrin use she will need to consider progestero ne only methods Surveillan ce of oral contraception 984148404 Z30.41 All risks/bene fits of Lo Loestrin discussed with patient Premenstru al tension syndrome 22283587 N94.3 Discussed OCP use versus SSRI use. She is interested in OCP use [id number] Mick Banda MD [facility] [address] [place] [address] 06/05/2022 10:37:09 06/11/2022 13:22:11 Premenstrual dysphoric disorder 225235 F32.81 Discussed at length medication options and discussed with them they may feel more depressed for the first week secondary to increased REM sleep and sleep adjustment s. Patient is not suicidal and has no suicidal ideations. we will need to see her back in 8 weeks for a follow up and stressed the importance of close follow up as well as benefits of having a counselor. We discussed a healthy diet and exercise. We discussed length of time to be on medication s as well as to start slow with the medication and take 1/2 the dose for 7-28 days before increasing to full dose as well as tapering off slowly as well over a 1 month period of time Secondary dysmenorrhea 00202722 N94.5 Deep pain on intercourse 177339072 N94.12 Body mass index 40+ - severely obese 046486899 Z68.41 COUNSELING was provided today regarding the following topics: healthy eating habits. Patient education given on weight management ., regular exercise. Patient handout given on Fitness, crossfit exercise emphasized . Instructed to strictly limit food calories to 12 oz/day and processed starches., and Instructed to stop the prescribed medication immediatel y if you experience chest pain or shortness of breath.. RECOMMENDA TIONS given include: a graduated exercise program ( 4-5 days per week ), stress reduction, You should follow the recommenda tions for fluid calories, limit processed starches, and diet caloric intake recommenda tions., and Encouraged at least 6 hours of sleep per night.. stressed importance of weight loss. Download cognitive therapy APPs (CBT [employer], [employer]) FOLLOW-UP: Schedule a follow-up visit in 1 month. Urgent ritika marisol to urinate 28897336 R39.15 Health Concerns Section Related Observation LastModified by Organization Detai ls LastModified Time None Recorded Concern Status LastModified by Organization Details LastModified Time None Recorded Advance Directives Directive None Recorded Payers Encounter Date Sequence Insurance Name Policy Number Policy Irving Covered Member ID Irving Member ID Guarantor Name 08/08/2021 1 [facility] ON OR AFTER 10/26/20 (MEDICAID REPLACEMENT - HMO) Itzel Williamson [id number] Itzel Williamson 10/10/2021 1 [facility] ON OR AFTER 10/26/20 (MEDICAID REPLACEMENT - HMO) Itzel Vero Williamson [id number] Itzel Vero Williamson 06/05/2022 1 [facility] ON OR AFTER 20 (MEDICAID REPLACEMENT - HMO) Itzelifeanyi Williamson [id number] Itzel Williamson Notes Date Note Type Note Provider Name and Address Organization Details Recorded Time 08/08/2021 text/html Contraception visitReported bypatient.Sexual HistorySexually active Menstrual cycle:Normal mensesNotes:bad PMS and dysmenorhea and 7 day heavy menses Patient wanting to discuss options on BC Mick Banda MD [address] [place] [address], [place], [address], [employer] [facility] 08/26/2021 20:37:07 10/10/2021 text/html Itzel is here for c/o headaches on her current OCP, PMS sx, as well as irregular menses since starting on control 7 weeks ago. She is sexually active, but her partner has had a vasectomy. She is due for her pap, however, she cannot have this performed d/t being on a heavy cycle today. LITTLE Hutchinson [facility], [place], [address], [employer] [facility] 10/10/2021 16:16:41 06/05/2022 text/html Pelvic PainRepor oniel bypatient.Location:bi lateral; lower abdominal Onset/Timing:gradual Duration:constant Quality:sharp Severity:severe; pain level 8/10 Context:occurs in a cyclical pattern pt only having pain during her periods and she has 6-7 day menses and painful and dyspareunia around and after and has sign PMS and a little better on the lexapro and feels great when not on cycle Mick Banda MD [address] [place] [address], [place], [address], [employer] 06/10/2022 22:34:34 OBGyn Episode Ob Episode Information Episode Created Date Number of Fetuses Patient Bloodtype Patient rh Status Prepregnancy Weight lbs Domestic Partner Domestic Partner Phone Father Name Insurance Salesperson Status 07/13/19 22 1 CLOSED Fetus Data First Name Last Name Admitted to NICU Weight (g) Sex Living Outcome Pediatric Complications Fetus ID Race Codes Race Delivery Type 2721.55 2 M [id number] Kt Calculation Initial Kt Date Initial Exam Date Initial Exam Provider Initial Ultrasound Date Last Menstrual Period Date Ultra Sound Weeks Gestation 0 Eighteen To Twenty Week Kt Update Ultra Sound Date Fundal Height At Umbil Quickening Date Ultra Sound Latest Weeks Gestation Final Kt Confirmed By Final Kt Confirmed Date Final Kt Date Ultra Sound Latest Days Gestation 0 0 Menstrual History Last Menstrual Date Menses Monthly On Bcp Conception Prior Menses Frequency Hcg Plus Date Menarche Onset Age Delivery Information Delivery Date Delivery Type Labor Anesthesia Weeks Gestation Incision Type Labor Labor Length Hrs Delivered By Post Complications Tubal Sterilization Discharge Date Comments 5 280 false Discharge Information Feeding Method Contraceptive Method Maternal HG B and HCT Levels Ob Episode Information Episode Created Date Number of Fetuses Patient Bloodtype Patient rh Status Prepregnancy Weight lbs Domestic Partner Domestic Partner Phone Father Name Insurance Salesperson Status 07/13/19 22 1 CLOSED Fetus Data First Name Last Name Admitted to NICU Weight (g) Sex Living Outcome Pediatric Complications Fetus ID Race Codes Race Delivery Type [id number] M [id number] Kt Calculation Initial Kt Date Initial Exam Date Initial Exam Provider Initial Ultrasound Date Last Menstrual Period Date Ultra Sound Weeks Gestation 0 Eighteen To Twenty Week Kt Update Ultra Sound Date Fundal Height At Umbil Quickening Date Ultra Sound Latest Weeks Gestation Final Kt Confirmed By Final Kt Confirmed Date Final Kt Date Ultra Sound Latest Days Gestation 0 0 Menstrual History Last Menstrual Date Menses Monthly On Bcp Conception Prior Menses Frequency Hcg Plus Date Menarche Onset Age Delivery Information Delivery Date Delivery Type Labor Anesthesia Weeks Gestation Incision Type Labor Labor Length Hrs Delivered By Post Complications Tubal Sterilization Discharge Date Comments 9 [phone] false Discharge Information Feeding Method Contraceptive Method Maternal HG B and HCT Levels
--- OUTSIDE RECORDS SUMMARY | 2024-06-10 08:31 | XMS_ITS | Clinical Summary ---
Author Organization [facility] Address [address] [place] [address] Care Team Providers Care Sea Kayaking Guide Name Role Phone López Hutchinson MD Primary Care Provider [phone] Source Comments [facility],non-owned Affiliates and Associated Physician Practices is amultiple site organization consisting of ambulatory clinics and hospital sitesin [place], [place], [place] and [place]. This disclosure is being madepursuant to the Care Everywhere program and may not contain all information available regarding this patient. Last updated 18.[facility] Allergies No known active allergies Medications * Be aware that medications may not be up to date on this document. Alwaysverify current medications with the patient. Medication Sig Dispensed Refills Start Date End Date Status multivitamin daily tablet Take 1 (one) tablet by mouth 2 times daily Active Probiotic Product (Recondo) capsuleIndication s:Bariatric surgery status Take 1 (one) capsule by mouth once daily 30 capsule 3 06/28/2022 Active calcium citrate TABS tablet Take by mouth 2 times daily Chews Active lamoTRIgine (LaMICtal) 25 MG tabletIndications :Mood Disorder Take 1 (one) tablet by mouth 2 times daily for 30 days Reasons: Mood Disorder 60 tablet 05/08/2024 Active FLUoxetine (PROzac) 20 MG capsuleIndication s:Major Depressive Disorder Take 1 (one) capsule by mouth once daily for 30 days Reasons: Major Depressive Disorder 30 capsule 05/08/2024 06/07/2024 Active Problems Problem Noted Date Diagnosed Date Morbid obesity 07/08/2022 Encounters Date Type Department Care Team Description 05/17/2024 2:30 PM RULES EXAMINER Office Visit [facility] Weight Management Services [address] [place] [address] Bianca Rico APRN-CNP Depression, unspecified depression type (Primary Dx); S/P laparoscopic sleeve gastrectomy; Gastroesophageal reflux disease, unspecified whether esophagitis present; History of morbid obesity; Anxiety; Binge eating 05/08/2024 Travel 04/06/2024 Travel 04/01/2024 4:00 PM RULES EXAMINER - 04/01/2024 11:59 PM RULES EXAMINER Hospital Encounter [facility] [address] [place] [address] Bettina Champion APRN-CNP Discharge Disposition: Home or Self Care 04/01/2024 2:30 PM RULES EXAMINER Office Visit [facility] Weight Management Services [address] [place] [address] Bettina Champion APRN-CNP S/P laparoscopic sleeve gastrectomy (Primary Dx) from Last 3 Months Immunizations Name Administration Dates Next Due TDAP (7yrs+) 10/18/2014 Family History Medical History Relation Name Comments Cancer Father CAD (Coronary Artery Disease) Maternal Grandfather Diabetes; unknown type Maternal Grandfather Cancer Maternal Grandmother Diabetes; unknown type Maternal Grandmother Diabetes Mother Hypertension Mother Relation Name Status Comments Father Maternal Grandfather Maternal Grandmother Mother Alive Social History Tobacco Use Types Packs/Day Years Used Date Smoking Tobacco: Former Cigarettes Q uit: 01/26/2019 Passive Smoke Exposure: Never Smokeless Tobacco: Never Tobacco Cessation:Counseling Given: No Alcohol Use Standard Drinks/Week Comments No 0 (1 standard drink = 0.6 oz pur e alcohol) Overall Financial Resource Strain (CARDIA) Answe r Date Recorded How hard is it for you to pa y for the very basics like food, housing, medical care, and heating? Not hard at all 07/08/2022 PHQ-2 Answer Date Recorded Patient Health Questionnaire-2 Score 0 05/17/2024 [facility] of Occupat ional Health - Occupational Stress [...] money to buy more. Never true 07/09/19 Within the past 12 months, t he [...] place to sleep or slept in a care home (including now)? No 07/08/2022 Sex and Gender Information Value Date Recorded Sex Assigned at Not on file Gender Identity Not on file Sexual Orientation Not on file Last Filed Vital Signs Vital Sign Reading Time Taken Comments Blood Pressure 130/82 05/17/2024 2:00 PM RULES EXAMINER Pulse 67 05/17/2024 2:00 PM RULES EXAMINER Temperature 36.9 C (98.5 F) 05/17/2024 2:00 PM RULES EXAMINER Respiratory Rate 16 05/17/2024 2:00 PM RULES EXAMINER Oxygen Saturation 100% 05/17/2024 2:00 PM RULES EXAMINER Inhaled Oxygen Concentration 21% 07/09/2022 8 :00 PM CDT Weight 67.4 kg (148 lb 11.2 oz) 05/17/2024 2:00 PM RULES EXAMINER Height 166 cm (5' 5.35 ) 05/17/2024 2:00 PM RULES EXAMINER Body Mass Index 24.48 05/17/2024 2:00 PM RULES EXAMINER Plan of Treatment Upcoming Encounters Date Type Department Care Team (Latest Contact Info) Description 06/30/2024 8:55 AM RULES EXAMINER Hospital Encounter [facility] [address] [place] [address] Sandy Johnson MD [address] [place] [phone] Surgery General 06/30/2024 8:55 AM RULES EXAMINER - 06/30/2024 9:21 AM RULES EXAMINER Surgery [facility] [address] [place] [address] Sandy Johnson MD [address] [place] [phone] ESOPHAGOGASTRODUODENOSCOPY WITH BIOPSY 07/13/2024 1:00 PM CDT Office Visit [facility] Weight Management Services [address] [place] [facility] [place] [address] Bianca Rico, CORK FLOOR INSTALLER-SALVAGE LABORER [address], [place] [address] 07/13/2024 1:30 PM CDT Clinical Support [facility] Management Services [address] [place] [phone] Scheduled Procedures Name Priority Associated Diagnoses Date/Ti me ESOPHAGOGASTRODUODENOSCOPY ( EGD) BIOPSY Gastroesophageal reflux disease, unspecified whether esophagitis present 06/30/2024 8:55 AM RULES EXAMINER Health Maintenance Due Date Last Done Comments PAP SMEAR 1995 HIV SCREENING 2010 HEPATITIS C SCREENING 01/11/2013 HEPATITIS B VACCINE (1 of 3 - 19+ 3-dose series) 2014 COVID-19 VACCINE (2023-2 5 season) 2023 INFLUENZA VACCINE (#1) 2023 9, 01/29/2018 DTAP/TDAP/TD VACCINES (2 - T d or Tdap) 10/18/2024 10/18/2014 ZOSTER VACCINE (1 of 2) 2045 DEPRESSION SCREENING Completed 05/17/2024, 07/30/2023 HIB VACCINE Aged Out No longer eligi ble based on patient's age to complete this topic HPV VACCINE Aged Out No longer eligi ble based on patient's age to complete this topic MENINGOCOCCAL (Group B) VACCINE Aged Out No longer eligible b ased on patient's age to complete this topic MENINGOCOCCAL VACCINE Aged Out No kumar sharon eligible based on patient's age to complete this topic PNEUMOCOCCAL VACCINE Aged Out No long er eligible based on patient's age to complete this topic Medical Devices Implanted Type Area Garden Worker Device Identifier Shelf Expiration Date Model / Serial / Lot Kit Tissue Clsr Duo Tssl 1 Prefl Syr - [id number] Implanted:Qty : 1 on 07/08/2022 by Sandy Johnson MD at [facility] N/A: Stom[employer]Point 12/27/2023 [id number] / [id number] / [id number] Procedures Procedure Name Priority Date/Time Associated Diagnosis Comments CBC W AUTO DIFFERENTIAL Routine 04/01/2024 4:07 PM RULES EXAMINER S/P laparoscopic sleeve gastrectomy COMPREHENSIVE METABOLIC PANEL Routine 04/01/2024 4:07 PM RULES EXAMINER S/P laparoscopic sleeve gastrectomy FERRITIN Routine 04/01/2024 4:07 PM RULES EXAMINER S/P laparoscopic sleeve gastrectomy LIPID PROFILE Routine 04/01/2024 4:07 PM RULES EXAMINER S/P laparoscopic sleeve gastrectomy MAGNESIUM BLOOD Routine 04/01/2024 4:07 PM RULES EXAMINER S/P laparoscopic sleeve gastrectomy VITAMIN D 25-HYDROXY Routine 04/01/2024 4:07 PM RULES EXAMINER S/P laparoscopic sleeve gastrectomy VITAMIN B12 FOLATE PANEL Routine 04/01/2024 4:07 PM RULES EXAMINER S/P laparoscopic sleeve gastrectomy VITAMIN B1 Routine 04/01/2024 4:07 PM RULES EXAMINER S/P laparoscopic sleeve gastrectomy PTH INTACT+CALCIUM Routine 04/01/2024 4: 07 PM RULES EXAMINER S/P laparoscopic sleeve gastrectomy PHOSPHORUS BLOOD Routine 04/01/2024 4:07 PM RULES EXAMINER S/P laparoscopic sleeve gastrectomy IRON + TRANSFERRIN PANEL Routine 04/01/2024 4:07 PM RULES EXAMINER S/P laparoscopic sleeve gastrectomy from Last 3 Months Results * PTH INTACT+CALCIUM (04/01/2024 4:07 PM RULES EXAMINER) PTH Intact 26 15 - 65 pg/mL 04/03/2024 11:51 PM RULES EXAMINER [facility] Calcium 10.0 8.6 - 10.0 mg/dL 04/03/2024 11:51 PM RULES EXAMINER [facility] Comment: Performed By: [facility] [address] [place] [address] Medical Staff Credentialing Coordinator: Ahsan Leslie MD, PhD CLIA Number: [id number] Blood BLOOD SPECIMEN / Unknown Lab Venipuncture / Unknown 04/01/2024 4:07 PM RULES EXAMINER 04/01/2024 4:35 PM RULES EXAMINER Bettina Champion CORK FLOOR INSTALLER-SALVAGE LABORER LAB - PARDEEP [facility]IMI ORDERABLES [facility]) [address] [place] [address] * VITAMIN B1 (04/01/2024 4:07 PM RULES EXAMINER) Pathologist [facility] Vitamin B1 Whole Blood 175 70 - 180 nmol/L 04/05/2024 2:50 PM RULES EXAMINER [facility] Comment: INTERPRETIVE INFORMATION: Vitamin B1, Whole Blood This assay measures the concentration of thiamine diphosphate (TDP), the primary active form of vitamin B1. Approximately 90 percent of vitamin B1 present in whole blood is TDP. Thiamine and thiamine monophosphate, which comprise the remaining 10 percent, are not measured. This test was developed and its performance characteristics determined by [employer] It has not been cleared or approved by the US Food and Drug Administration. This test was performed in a CLIA certified laboratory and is intended for clinical purposes. Performed By: [facility] [address] [place] [address] Medical Staff Credentialing Coordinator: Ahsan Leslie MD, PhD CLIA Number: [id number] Blood BLOOD SPECIMEN / Unknown Lab Venipuncture / Unknown 04/01/2024 4:07 PM RULES EXAMINER 04/01/2024 4:35 PM RULES EXAMINER Bettina Champion APRN-[facility] - PARDEEP KIM[facility] ORDERABLES [facility] [address] [place], [place] [id number] [place] [address] * VITAMIN D 25-HYDROXY (04/01/2024 4:07 PM RULES EXAMINER) Vitamin D, 25 Hydroxy 36.3 30 - 80 ng/mL 04/01/2024 5:18 PM RULES EXAMINER [facility] Blood BLOOD SPECIMEN / Unknown Lab Venipuncture / Unknown 04/01/2024 4:07 PM RULES EXAMINER 04/01/2024 4:35 PM RULES EXAMINER Narrative [facility] - 04/01/2024 5:18 PM RULES EXAMINER Reference Values: The recommendation for 25-Hydroxy Vitamin D clinical decision points are as follows: Deficient < 20.0 ng/mL Insufficient 20.0-29.9 ng/mL Sufficient 30.0-100.0 ng/mL Potential Toxicity >100 ng/mL Reference: The Endocrine Society Clinical Practice Guidelines. 2011 If the 25-Hydroxy Vitamin D results are inconsistent with clinical evidence, it is recommended that follow-up testing using a method such as LC-MS/MS be performed to confirm the result. Bettina Champion [facility] ORDER[facility] Performing Organization Address City/[facility]/ZIP Co de Phone Number [facility] [address] [place], [place] [address] * CBC WITH DIFFERENTIAL (04/01/2024 4:07 PM RULES EXAMINER) WBC 7.8 4.0 - 10.7 x10E9/L 04/01/2024 4:38 PM RULES EXAMINER [facility] RBC Count 4.75 3.90 - 5.20 x10E12/L 04/01/2024 4:38 PM RULES EXAMINER [facility] Hemoglobin 13.6 11.9 - 15.8 g/dL 04/01/2024 4:38 PM [facility] Hematocrit 41.8 34.8 - 46.1 % 04/01/2024 4:38 PM [facility] MCV 88.0 80.0 - 98.0 fL 04/01/2024 4:38 PM [facility] MCH 28.6 26.7 - 33.6 pg 04/01/2024 4:38 PM [facility] MCHC 32.5 31.7 - 36.3 g/dL 04/01/2024 4:38 PM [facility] RDW-CV 11.9 11.3 - 14.8 % 04/01/2024 4:38 PM [facility] Platelet Count 248 150 - 420 x10E9/L 04/01/2024 4:38 PM [facility] MPV 9.3 7.8 - 11.4 fL 04/01/2024 4:38 PM [facility] Neutrophil % 60.3 41.0 - 74.0 % 04/01/2024 4:38 PM [facility] Lymphocyte % 30.7 17.0 - 47.0 % 04/01/2024 4:38 PM [facility] Monocyte % 6.6 3.0 - 11.0 % 04/01/2024 4:38 PM [facility] Eosinophil % 1.5 0.0 - 7.0 % 04/01/2024 4:38 PM [facility] Basophil % 0.6 0.0 - 1.6 % 04/01/2024 4:38 PM [facility] Immature Granulocytes % 0.3 0.0 - 1.0 % 04/01/2024 4:38 PM [facility] Neutrophil Absolute 4.69 1.60 - 7.50 x10E9/L 04/01/2024 4:38 PM [facility] Lymphocyte Absolute 2.39 1.00 - 4.40 x10E9/L 04/01/2024 4:38 PM [facility] Monocyte Absolute 0.51 0.15 - 1.00 x10E9/L 04/01/2024 4:38 PM [facility] Eosinophil Absolute 0.12 0.00 - 0.60 x10E9/L 04/01/2024 4:38 PM [facility] Basophil Absolute 0.05 0.00 - 0.13 x10E9/L 04/01/2024 4:38 PM [facility] Blood BLOOD SPECIMEN / Unknown Lab Venipuncture / Unknown 04/01/2024 4:07 PM RULES EXAMINER 04/01/2024 4:35 PM [facility] Bettina Champion CORK FLOOR INSTALLER-SALVAGE LABORER LAB - HEM ATOLOGY ORDERABLES Performing Organization Address City/[facility] Co de Phone Number [facility] [address] * COMPREHENSIVE METABOLIC PANEL (04/01/2024 4:07 PM [facility]) Pathologist [facility] Glucose 89 70 - 125 mg/dL 04/01/2024 4:55 PM [facility] Sodium 140 136 - 145 mmol/L 04/01/2024 4:55 PM [facility] Potassium 4.0 3.4 - 5.1 mmol/L 04/01/2024 4:55 PM [facility] Chloride 106 98 - 107 mmol/L 04/01/2024 4:55 PM [facility] CO2 26 22 - 29 mmol/L 04/01/2024 4:55 PM [facility] Calcium 9.97 8.4 - 10.2 mg/dL 04/01/2024 4:55 PM [facility] Anion Gap 8 6 - 16 mmol/L 04/01/2024 4:55 PM [facility] BUN 11.8 9.8 - 20.1 mg/dL 04/01/2024 4:55 PM [facility] Creatinine 0.57 0.57 - 1.11 mg/dL 04/01/2024 4:55 PM [facility] Alkaline Phosphatase 75 40 - 150 U/L 04/01/2024 4:55 PM [facility] ALT 36 <=55 U/L 04/01/2024 4:55 PM [facility] AST 29 5 - 34 U/L 04/01/2024 4:55 PM [facility] Protein Total 7.4 6.4 - 8.3 gm/dL 04/01/2024 4:55 PM [facility] Albumin 4.1 3.4 - 4.8 gm/dL 04/01/2024 4:55 PM [facility] Globulin Total 3.3 2.6 - 4.0 gm/dL 04/01/2024 4:55 PM [facility] Albumin/Globulin Ratio 1.2 0.9 - 1.6 04/01/2024 4:55 PM RULES EXAMINER [facility] Bilirubin Total 1.2 0.2 - 1.2 mg/dL 04/01/2024 4:55 PM RULES EXAMINER [facility] eGFR >90 >90 mL/min/1.7 3m2 04/01/2024 4:55 PM RULES EXAMINER [facility] Comment:The GFR result was c alculated using the updated CKD-EPI Creatinine Equation (2020). Blood BLOOD SPECIMEN / Unknown Lab Venipuncture / Unknown 04/01/2024 4:07 PM RULES EXAMINER 04/01/2024 4:35 PM RULES EXAMINER Bettina Champion [facility] - [facility] ORDERABLES Performing Organization Address [facility] Co de Phone Number [facility] [address] * PHOSPHORUS BLOOD (04/01/2024 4:07 PM RULES EXAMINER) Phosphorus 3.7 2.5 - 4.5 mg/dL 04/01/2024 4:55 PM RULES EXAMINER [facility] Blood BLOOD SPECIMEN / Unknown Lab Venipuncture / Unknown 04/01/2024 4:07 PM RULES EXAMINER 04/01/2024 4:35 PM RULES EXAMINER Bettina Champion [facility] - [facility] ORDERABLES Performing Organization Address [facility] Co de Phone Number [facility] [address] [place] [address] * MAGNESIUM BLOOD (04/01/2024 4:07 PM RULES EXAMINER) Magnesium 1.9 1.6 - 2.6 mg/dL 04/01/2024 4:55 PM RULES EXAMINER [facility] Blood BLOOD SPECIMEN / Unknown Lab Venipuncture / Unknown 04/01/2024 4:07 PM RULES EXAMINER 04/01/2024 4:35 PM RULES EXAMINER Bettina ANDERSONSALVAGE LABORER LAB - PARDEEP KIMI ORDERABLES Performing Organization Address [facility] Co de Phone Number [facility] [address] * (ABNORMAL) VITAMIN B12 FOLATE PANEL (04/01/2024 4:07 PM RULES EXAMINER) Vitamin B12 943(H) 213 - 816 pg/mL 04/01/2024 5:31 PM RULES EXAMINER [facility] Folate 15.0 7.0 - 31.4 ng/mL 04/01/2024 5:31 PM RULES EXAMINER [facility] Blood BLOOD SPECIMEN / Unknown Lab Venipuncture / Unknown 04/01/2024 4:07 PM RULES EXAMINER 04/01/2024 4:35 PM RULES EXAMINER Bettina Champion APRN-SALVAGE LABORER LAB - PARDEEP KIMI ORDERABLES Performing Organization Address [facility] de Phone Number [facility] [address] [place] [address] * (ABNORMAL) IRON + TRANSFERRIN PANEL (04/01/2024 4:07 PM RULES EXAMINER) Iron 94 50 - 170 ug/dL 04/01/2024 5:10 PM RULES EXAMINER [facility] Transferrin 424(H) 180 - 382 mg/dL 04/01/2024 5:10 PM RULES EXAMINER [facility] TIBC Calculated 530(H) 261 - 497 ug/dL 04/01/2024 5:10 PM RULES EXAMINER [facility] Iron Saturation % 18 11 - 45 % 04/01/2024 5:10 PM RULES EXAMINER [facility] Blood BLOOD SPECIMEN / Unknown Lab Venipuncture / Unknown 04/01/2024 4:07 PM RULES EXAMINER 04/01/2024 4:35 PM RULES EXAMINER Bettina Champion APRN-SALVAGE LABORER LAB - PARDEEP KIMI ORDERABLES Performing Organization Address [facility] Co de Phone Number [facility] [address] [place] [address] * FERRITIN (04/01/2024 4:07 PM RULES EXAMINER) Ferritin 13 5 - 204 ng/mL 04/01/2024 5:17 PM RULES EXAMINER [facility] Blood BLOOD SPECIMEN / Unknown Lab Venipuncture / Unknown 04/01/2024 4:07 PM RULES EXAMINER 04/01/2024 4:35 PM RULES EXAMINER Bettina Champion CORK FLOOR INSTALLER-SALVAGE LABORER LAB - PARDEEP KIMI ORDERABLES [facility] [address] * LIPID PROFILE (04/01/2024 4:07 PM RULES EXAMINER) [facility] Cholesterol 179 <200 mg/dL 04/01/2024 4:55 PM RULES EXAMINER [facility] Triglycerides 58 <150 mg/dL 04/01/2024 4:55 PM RULES EXAMINER [facility] HDL Cholesterol 58 >40 mg/dL 4:55 PM [facility] Chol HDL Ratio 3.1 1.0 - 6.0 04/01/2024 4:55 PM [facility] LDL Calculated 109 65 - 130 mg/dL 04/01/2024 4:55 PM [facility] VLDL Calculated 12 <=30 mg/dL 4:55 PM [facility] Blood BLOOD SPECIMEN / Unknown Lab Venipuncture / Unknown 04/01/2024 4:07 PM RULES EXAMINER 04/01/2024 4:35 PM RULES EXAMINER Narrative [facility] - 04/01/2024 4:55 PM RULES EXAMINER Lipid Profile Comment: CHOLESTEROL LEVEL..................CLINICAL INTERPRETATION LESS THAN 200 MG/DL..............................DESIRABLE 200-239 MG/DL..............................BORDERLINE HIGH GREATER THAN 240 MG/DL................................HIGH LDL-CHOLESTEROL LEVEL..............CLINICAL INTERPRETATION LESS THAN 100 MG/DL................................OPTIMAL 100-129 MG/DL.................................NEAR OPTIMAL GREATER THAN 160 MG/DL...........................HIGH RISK HDL RISK LEVEL GREATER THEN 60 MG/DL............................DECREASED 40-60 MG/DL........................................AVERAGE LESS THAN 40 MG/DL...............................INCREASED TRIGLYCERIDE LEVEL..................CLINICAL INTERPRETATION LESS THAN 150 MG/DL...............................DESIRABLE 150-199 MG/DL...............................BORDERLINE HIGH 200-499 MG/DL..........................................HIGH GREATER THAN 500..................................VERY HIGH THE NATIONAL CHOLESTEROL EDUCATION PROGRAM HAS SET THE ABOVE GUIDELINES (REFERANCE VALUES) FOR CHOLESTEROL AND HDL. RISK ASSOCIATED WITH CHOLESTEROL/HDL RATIOS RISK....................MALE RATIO.............FEMALE RATIO 1/2 AVERAGE.................<3.4.......................<3.3 LOW RISK.................... 4.0 ...................... 3.8 AVERAGE..................... 5.0 ...................... 4.5 2X AVERAGE.................. 9.5 ...................... 7.0 3X AVERAGE...................>23........................>11 Bettina Champion CORK FLOOR INSTALLER-SALVAGE LABORER LAB - PARDEEP [facility] ORDERABLES [facility] [address] from Last 3 Months Advance Directives * Full Code (Latest Code Status on File) Date Activated Date Inactivated Comments 07/08/2022 3:55 PM 07/10/2022 3:37 PM * Full Code Date Activated Date Inactivated Comments 10/17/2014 9:41 PM 10/19/2014 6:52 PM * Full Code Date Activated Date Inactivated Comments 10/17/2014 9:10 PM 10/17/2014 9:41 PM Care Teams Sea Kayaking Guide Relationship Specialty Start Date End Date López Hutchinson MD [address] [place] [address] PCP - General Internal Medicine 11/15/21
--- OUTSIDE RECORDS SUMMARY | 2024-06-10 08:32 | XMS_ITS | Clinical Summary ---
Author Organization [email or web address] [place] Address [address] [place] [address] Care Team Providers Care Veneer Department Manager Name Role Phone Unavailable Primary Care Provider Unavailabl e Allergies No known active allergies Medications PNV#[id number] Fum & [id number] [id number] mg Capsule Take 1 Capsule by mouth daily. 30 Capsule 4 06/19/2018 Active Active Problems Problem Noted Date Diagnosed Date , incidental 06/19/2018 Weight gain 05/29/2018 Anxiety state 03/27/2018 Moderate episode of recurrent major depressive d isorder 03/27/2018 Estimated Date of Delivery Comme nts Yes 02/23/2019 Resolved Problems Problem Noted Date Diagnosed Date Resolved Date Tobacco abuse 05/29/2018 08/28/2018 Immunizations Immunization Administration Dates Next Due INFLUENZA VACCINE QUADRIVALENT 6 MOS UP IM 01/29 Family History Medical History Relation Name Comments No Known Problems Brother 1 No Known Problems Brother 2 No Known Problems Brother 3 Melanoma Father Edward Unknown Maternal Grandfather Tomasz Unknown Maternal Grandmother Maria De Jesus Diabetes Mother Ban Unknown Paternal Grandfather N/A Unknown Paternal Grandmother N/A No Known Problems Sister 1 No Known Problems Sister 2 No Known Problems Sister 3 No Known Problems Sister 4 No Known Problems Sister 5 No Known Problems Sister 6 No Known Problems Sister 7 No Known Problems Son Relation Name Status Comments Brother 1 Alive Brother 2 Alive Brother 3 Alive Father Edward Maternal Grandfather Tomasz Maternal Grandmother Maria De Jesus Alive Mother Ban Alive Paternal Grandfather N/A Other Paternal Grandmother N/A Other Sister 1 Alive Sister 2 Alive Sister 3 Alive Sister 4 Alive Sister 5 Alive Sister 6 Alive Sister 7 Alive Son Alive Social History Tobacco Use Types Packs/Day Years Used Date Smoking Tobacco: Former Cigarettes 1 5 Smokeless Tobacco: Never Alcohol Use Standard Drinks/Week Comments No 0 (1 standard drink = 0.6 oz pur e alcohol) Estimated Date of Delivery Comme nts Yes 02/23/2019 Sex and Gender Information Value Date Recorded Sex Assigned at Not on file Legal Sex Female 11:13 AM CDT Gender Identity Not on file Sexual Orientation Not on file Last Filed Vital Signs Vital Sign Reading Time Taken Comments Blood Pressure 110/64 08/28/2018 10:58 AM CDT Pulse 93 08/28/2018 10:58 AM CDT Temperature 37 C (98.6 F) 08/28/2018 10:58 AM CDT Respiratory Rate 18 08/28/2018 10:58 AM CDT Oxygen Saturation 98% 08/28/2018 10:58 AM CDT Inhaled Oxygen Concentration - - Weight 108.9 kg (240 lb) 08/28/2018 10:58 AM CDT Height 162.6 cm (5' 4 ) 08/28/2018 10:58 AM CDT Body Mass Index 41.2 08/28/2018 10:58 AM CDT Plan of Treatment Health Maintenance Due Date Last Done Comments DTAP/TDAP/TD VACCINES (1 - Tdap) 2014 HEPATITIS B VACCINES (1 of 3 - 19+ 3-dose series) 2014 CERVICAL CANCER SCREENING 01/17/2016 INFLUENZA VACCINE (#1) 2023 01/29/2018 RSV VACCINE (60+ or ) (1 - 1-dose 75+ series) 2070 HPV VACCINES Aged Out No longer eligi ble based on patient's age to complete this topic
--- OUTSIDE RECORDS SUMMARY | 2024-06-10 08:32 | XMS_ITS | Patient Health Summary ---
Author Organization [facility] Address [address] [place] [address] Care Team Providers Care In Service Coordinator Name Role Phone López Hutchinson MD Primary Care Provider [phone] Note from [facility],non-owned Affiliates and Associated Physician Practices is amultiple site organization consisting of ambulatory clinics and hospital sitesin [place], [place], [place] and [place]. This disclosure is being madepursuant to the Care Everywhere program and may not contain all information available regarding this patient. Last updated 18.[facility] Allergies No known active allergies Medications * Be aware that medications may not be up to date on this document. Alwaysverify current medications with the patient. * multivitamin daily tablet Take 1 (one) tablet by mouth 2 times daily * Probiotic Product (Motility Count) capsule(Started 06/28/2022) Take 1 (one) capsule by mouth once daily 3 refills by 06/28/2023 * calcium citrate TABS tablet Take by mouth 2 times daily Chews * lamoTRIgine (LaMICtal) 25 MG tablet(Started 05/08/2024) Take 1 (one) tablet by mouth 2 times daily for 30 days Reasons: Mood Disorder Ended Medications* FLUoxetine (PROzac) 20 MG capsule(Started 05/08/2024)() Take 1 (one) capsule by mouth once daily for 30 days Reasons: Major Depressive Disorder Active Problems Problem Noted Date Diagnosed Date Morbid obesity 07/08/2022 Immunizations * TDAP (7yrs+)(Given 10/18/2014) Social History Tobacco Use Types Packs/Day Years [...] Recorded Patient Health Questionnaire-2 Score 0 05/17/2024 [facility] Occupat ional Health - Occupational Stress [...] place to sleep or slept in a jail (including now)? No 07/08/2022 Sex and Gender Information Value Date Recorded Sex Assigned at Not on file Gender Identity Not on file Sexual Orientation Not on file Last Filed Vital Signs Vital Sign Reading Time Taken Comments Blood Pressure 130/82 05/17/2024 2:00 PM RHIC SYSTEMS SAFETY ENGINEER Pulse 67 05/17/2024 2:00 PM RHIC SYSTEMS SAFETY ENGINEER Temperature 36.9 C (98.5 F) 05/17/2024 2:00 PM RHIC SYSTEMS SAFETY ENGINEER Respiratory Rate 16 05/17/2024 2:00 PM RHIC SYSTEMS SAFETY ENGINEER Oxygen Saturation 100% 05/17/2024 2:00 PM RHIC SYSTEMS SAFETY ENGINEER Inhaled Oxygen Concentration 21% 07/09/2022 8 :00 PM CDT Weight 67.4 kg (148 lb 11.2 oz) 05/17/2024 2:00 PM RHIC SYSTEMS SAFETY ENGINEER Height 166 cm (5' 5.35 ) 05/17/2024 2:00 PM RHIC SYSTEMS SAFETY ENGINEER Body Mass Index 24.48 05/17/2024 2:00 PM RHIC SYSTEMS SAFETY ENGINEER Medical Devices Implanted Type Area Nuclear Waste Management Engineer Device Identifier Shelf Expiration Date Model / Serial / Lot Kit Tissue Clsr Duo Tssl 1 Prefl [facility] - [id number] Implanted:Qty : 1 on 07/08/2022 by Sandy Johnson MD at [facility] N/A: [employer] 12/27/2023 [id number] / [id number] / [id number] Procedures * CBC W AUTO DIFFERENTIAL(Performed 04/01/2024) Performed for S/P laparoscopic sleeve gastrectomy * COMPREHENSIVE METABOLIC PANEL(Performed 04/01/2024) Performed for S/P laparoscopic sleeve gastrectomy * FERRITIN(Performed 04/01/2024) Performed for S/P laparoscopic sleeve gastrectomy * LIPID PROFILE(Performed 04/01/2024) Performed for S/P laparoscopic sleeve gastrectomy * MAGNESIUM BLOOD(Performed 04/01/2024) Performed for S/P laparoscopic sleeve gastrectomy * VITAMIN D 25-HYDROXY(Performed 04/01/2024) Performed for S/P laparoscopic sleeve gastrectomy * VITAMIN B12 FOLATE PANEL(Performed 04/01/2024) Performed for S/P laparoscopic sleeve gastrectomy * VITAMIN B1(Performed 04/01/2024) Performed for S/P laparoscopic sleeve gastrectomy * PTH INTACT+CALCIUM(Performed 04/01/2024) Performed for S/P laparoscopic sleeve gastrectomy * PHOSPHORUS BLOOD(Performed 04/01/2024) Performed for S/P laparoscopic sleeve gastrectomy * IRON + TRANSFERRIN PANEL(Performed 04/01/2024) Performed for S/P laparoscopic sleeve gastrectomy * CARDIAC RHYTHM STRIP ORDER(Performed 07/12/2022) * GLUCOSE - POINT OF CARE(Performed 07/10/2022) * GLUCOSE - POINT OF CARE(Performed 07/10/2022) * PHOSPHORUS BLOOD(Performed 07/10/2022) * MAGNESIUM BLOOD(Performed 07/10/2022) * COMPREHENSIVE METABOLIC PANEL(Performed 07/10/2022) * CBC W AUTO DIFFERENTIAL(Performed 07/10/2022) * GLUCOSE - POINT OF CARE(Performed 07/09/2022) * GLUCOSE - POINT OF CARE(Performed 07/09/2022) * GLUCOSE - POINT OF CARE(Performed 07/09/2022) * GLUCOSE - POINT OF CARE(Performed 07/09/2022) * HEMOGLOBIN A1C(Performed 07/09/2022) * PHOSPHORUS BLOOD(Performed 07/09/2022) * MAGNESIUM BLOOD(Performed 07/09/2022) * COMPREHENSIVE METABOLIC PANEL(Performed 07/09/2022) * CBC W AUTO DIFFERENTIAL(Performed 07/09/2022) * POTASSIUM BLOOD(Performed 07/09/2022) * MAGNESIUM BLOOD(Performed 07/08/2022) * GLUCOSE - POINT OF CARE(Performed 07/08/2022) * GLUCOSE - POINT OF CARE(Performed 07/08/2022) * PHOSPHORUS BLOOD(Performed 07/08/2022) * MAGNESIUM BLOOD(Performed 07/08/2022) * COMPREHENSIVE METABOLIC PANEL(Performed 07/08/2022) * CBC W AUTO DIFFERENTIAL(Performed 07/08/2022) * GROSS + MICRO EXAM (ILL)(Performed 07/08/2022) Performed for Morbid obesity (HCC) * ENDOTRACHEAL TUBE NOTE(Performed 07/08/2022) * IL LAP SLEEVE GASTRECTOMY(Performed 07/08/2022) Performed for Morbid obesity (HCC) * HCG URINE QUALITATIVE(Performed 07/08/2022) Performed for Preop examination * TYPE + SCREEN PANEL(Performed 07/02/2022) Performed for Preop examination * NICOTINE + METABOLITES BLOOD(Performed 06/28/2022) Performed for Pre-op testing, History of tobacco abuse * ECHO COMPLETE(Performed 06/07/2022) Performed for Abnormal EKG, SOB (shortness of breath) * NICOTINE + METABOLITES BLOOD(Performed 05/28/2022) Performed for Smoking history * GROSS + MICRO EXAM (ILL)(Performed 02/12/2022) Performed for Gastroesophageal reflux disease, unspecified whether esophagitis present * IL EGD FLEX TRANSORAL W BX SNGL OR MULT(Performed 02/12/2022) Performed for Gastroesophageal reflux disease, unspecified whether esophagitis present * HCG URINE QUALITATIVE(Performed 02/12/2022) Performed for Pre-op testing * CBC W AUTO DIFFERENTIAL(Performed 01/15/2022) Performed for Pre-op testing, Morbid obesity with BMI of 40.0-44.9, adult ([facility]LY [facility]) * COMPREHENSIVE METABOLIC PANEL(Performed 01/15/2022) Performed for Pre-op testing, Morbid obesity with BMI of 40.0-44.9, adult ([facility]) * FERRITIN(Performed 01/15/2022) Performed for Pre-op testing, Morbid obesity with BMI of 40.0-44.9, adult ([facility]) * HEMOGLOBIN A1C(Performed 01/15/2022) Performed for Pre-op testing, Morbid obesity with BMI of 40.0-44.9, adult ([facility]) * IRON + TRANSFERRIN PANEL(Performed 01/15/2022) Performed for Pre-op testing, Morbid obesity with BMI of 40.0-44.9, adult ([facility]) * LIPID PROFILE(Performed 01/15/2022) Performed for Pre-op testing, Morbid obesity with BMI of 40.0-44.9, adult ([facility]) * MAGNESIUM BLOOD(Performed 01/15/2022) Performed for Pre-op testing, Morbid obesity with BMI of 40.0-44.9, adult ([facility]) * PT PTT PANEL(Performed 01/15/2022) Performed for Pre-op testing, Morbid obesity with BMI of 40.0-44.9, adult ([facility]) * TSH(Performed 01/15/2022) Performed for Pre-op testing, Morbid obesity with BMI of 40.0-44.9, adult ([facility]) * VITAMIN B1(Performed 01/15/2022) Performed for Pre-op testing, Morbid obesity with BMI of 40.0-44.9, adult ([facility]) * VITAMIN B12 FOLATE PANEL(Performed 01/15/2022) Performed for Pre-op testing, Morbid obesity with BMI of 40.0-44.9, adult ([facility]) * VITAMIN D 25-HYDROXY(Performed 01/15/2022) Performed for Pre-op testing, Morbid obesity with BMI of 40.0-44.9, adult ([facility]) * PTH INTACT+CALCIUM(Performed 01/15/2022) Performed for Pre-op testing, Morbid obesity with BMI of 40.0-44.9, adult (HCC) * NICOTINE + METABOLITES BLOOD(Performed 01/15/2022) Performed for Smoking history * CARDIAC EKG ORDER(Performed 11/20/2021) * EKG 12-LEAD(Performed 11/15/2021) Performed for Pre-op testing * XR CHEST 2VW(Performed 11/15/2021) Performed for Pre-op testing * CBC W AUTO DIFFERENTIAL(Performed 10/19/2014) * NEURAXIAL BLOCK(Performed 10/18/2014) * TYPE + SCREEN PANEL(Performed 10/17/2014) Performed for Supervision of other normal , third trimester * RPR(Performed 10/17/2014) Performed for Supervision of other normal , third trimester * CBC W AUTO DIFFERENTIAL(Performed 10/17/2014) Performed for Supervision of other normal , third trimester * AMNISURE - POCT (IP) BEAKER(Performed 10/17/2014) * AMNISURE - POCT (IP) BEAKER(Performed 10/17/2014) * URINALYSIS REFLEX MICROSCOPIC REFLEX CULTURE(Performed 05/01/2014) * BLOOD TYPE ABO+ RH PANEL(Performed 05/01/2014) * LIPASE BLOOD(Performed 05/01/2014) * HCG BETA BLOOD QUANTITATIVE(Performed 05/01/2014) * COMPREHENSIVE METABOLIC PANEL(Performed 05/01/2014) * CBC W AUTO DIFFERENTIAL(Performed 05/01/2014) * CARDIAC RHYTHM STRIP ORDER(Performed 03/27/2014) * URINALYSIS REFLEX MICROSCOPIC REFLEX CULTURE(Performed 03/23/2014) * HCG BETA BLOOD QUANTITATIVE(Performed 03/23/2014) * COMPREHENSIVE METABOLIC PANEL(Performed 03/23/2014) * CBC W AUTO DIFFERENTIAL(Performed 03/23/2014) Results * PTH INTACT+CALCIUM (04/01/2024 4:07 PM RHIC SYSTEMS SAFETY ENGINEER) Only the most recent of2 resultswithin the time period is included. PTH Intact 26 15 - 65 pg/mL 04/03/2024 11:51 PM RHIC SYSTEMS SAFETY ENGINEER [employer] ([facility]) Calcium 10.0 8.6 - 10.0 mg/dL 04/03/2024 11:51 PM RHIC SYSTEMS SAFETY ENGINEER [employer] ([facility]) Comment: Performed By: [facility] [address] [place] [id number] Vending Stand Supervisor: Ahsan Leslie MD, PhD CLIA Number: [id number] Blood BLOOD SPECIMEN / Unknown Lab Venipuncture / Unknown 04/01/2024 4:07 PM RHIC SYSTEMS SAFETY ENGINEER 04/01/2024 4:35 PM RHIC SYSTEMS SAFETY ENGINEER Bettina Champion EMPLOYMENT COUNSELOR-[facility] - [place] KIMI ORDERABLES Performing Organization Address City/[facility] Co de Phone Number [facility] [employer] [facility]) [address] [place] [address] * VITAMIN B1 (04/01/2024 4:07 PM RHIC SYSTEMS SAFETY ENGINEER) Only the most recent of2 resultswithin the time period is included. Pathologist [facility] Vitamin B1 Whole Blood 175 70 - 180 nmol/L 04/05/2024 2:50 PM RHIC SYSTEMS SAFETY ENGINEER [facility] ([facility]) Comment: INTERPRETIVE INFORMATION: Vitamin B1, Whole Blood This assay measures the concentration of thiamine diphosphate (TDP), the primary active form of vitamin B1. Approximately 90 percent of vitamin B1 present in whole blood is TDP. Thiamine and thiamine monophosphate, which comprise the remaining 10 percent, are not measured. This test was developed and its performance characteristics determined by [facility]. It has not been cleared or approved by the [place] Food and Drug Administration. This test was performed in a CLIA certified laboratory and is intended for clinical purposes. Performed By: [facility] [employer] [address] [place] [address] Vending Stand Supervisor: Ahsan Leslie MD, PhD CLIA Number: [id number] Blood BLOOD SPECIMEN / Unknown Lab Venipuncture / Unknown 04/01/2024 4:07 PM RHIC SYSTEMS SAFETY ENGINEER 04/01/2024 4:35 PM RHIC SYSTEMS SAFETY ENGINEER Bettian Champion EMPLOYMENT [facility]SEL[facility] - [place] KIMI ORDERABLES Performing Organization Address [facility] de Phone Number [facility]) [address] [place] [address] * VITAMIN D 25-HYDROXY (04/01/2024 4:07 PM RHIC SYSTEMS SAFETY ENGINEER) Only the most recent of2 resultswithin the time period is included. Vitamin D, 25 Hydroxy 36.3 30 - 80 ng/mL 04/01/2024 5:[address] [facility] Blood BLOOD SPECIMEN / Unknown Lab Venipuncture / Unknown 04/01/2024 4:07 PM RHIC SYSTEMS SAFETY ENGINEER 04/01/2024 4:35 PM RHIC SYSTEMS SAFETY ENGINEER [facility]ORATORY - 04/01/2024 5:18 PM [facility] Reference Values: The recommendation for 25-Hydroxy Vitamin [...] performed to confirm the result. Bettina Champion EMPLOYMENT COUNSELOR-[facility] - [place] KIMI ORDERABLES Performing Organization Address City/State/[facility] Co de Phone Number [facility] [address] * CBC WITH DIFFERENTIAL (04/01/2024 4:07 PM [facility]) Only the most recent of9 resultswithin the time period is included. WBC 7.8 4.0 - 10.7 x10E9/L 04/01/2024 4:[address] [facility] RBC Count 4.75 3.90 - 5.20 x10E12/L 04/01/2024 4:[address] [facility] Hemoglobin 13.6 11.9 - 15.8 g/dL 04/01/2024 4:[address] [facility] Hematocrit 41.8 34.8 - 46.1 % 04/01/2024 4:[address] [facility] MCV 88.0 80.0 - 98.0 fL 04/01/2024 4:[address] [facility] MCH 28.6 26.7 - 33.6 pg 04/01/2024 4:[address] [facility] MCHC 32.5 31.7 - 36.3 g/dL 04/01/2024 4:[address] [facility] RDW-CV 11.9 11.3 - 14.8 % 04/01/2024 4:[address] [facility] Platelet Count 248 150 - 420 x10E9/L 04/01/2024 4:[address] [facility] MPV 9.3 7.8 - 11.4 fL 04/01/2024 4:[address] [facility] Neutrophil % 60.3 41.0 - 74.0 % 04/01/2024 4:[address] [facility] Lymphocyte % 30.7 17.0 - 47.0 % 04/01/2024 4:[address] [facility] Monocyte % 6.6 3.0 - 11.0 % 04/01/2024 4:[address] [facility] Eosinophil % 1.5 0.0 - 7.0 % 04/01/2024 4:[address] [facility] Basophil % 0.6 0.0 - 1.6 % 04/01/2024 4:[address] [facility] Immature Granulocytes % 0.3 0.0 - 1.0 % 04/01/2024 4:[address] [facility] Neutrophil Absolute 4.69 1.60 - 7.50 x10E9/L 04/01/2024 4:[address] [facility] Lymphocyte Absolute 2.39 1.00 - 4.40 x10E9/L 04/01/2024 4:[address] [facility] Monocyte Absolute 0.51 0.15 - 1.00 x10E9/L 04/01/2024 4:[address] [facility] Eosinophil Absolute 0.12 0.00 - 0.60 x10E9/L 04/01/2024 4:[address] [facility] Basophil Absolute 0.05 0.00 - 0.13 x10E9/L 04/01/2024 4:[address] [facility] Blood BLOOD SPECIMEN / Unknown Lab Venipuncture / Unknown 04/01/2024 4:07 PM RHIC SYSTEMS SAFETY ENGINEER 04/01/2024 4:35 PM [facility] Bettina Champion APRN-[facility] - HEM ATOLOGY ORDERABLES Performing Organization Address City/State/[facility] Co de Phone Number [facility] [address] * COMPREHENSIVE METABOLIC PANEL (04/01/2024 4:07 PM RHIC SYSTEMS SAFETY ENGINEER) Only the most recent of7 resultswithin the time period is included. [facility] Glucose 89 70 - 125 mg/dL 04/01/2024 4:[address] [facility] Sodium 140 136 - 145 mmol/L 04/01/2024 4:[address] [facility] Potassium 4.0 3.4 - 5.1 mmol/L 04/01/2024 4:[address] [facility] Chloride 106 98 - 107 mmol/L 04/01/2024 4:[address] [facility] CO2 26 22 - 29 mmol/L 04/01/2024 4:[address] [facility] Calcium 9.97 8.4 - 10.2 mg/dL 04/01/2024 4:[address] [facility] Anion Gap 8 6 - 16 mmol/L 04/01/2024 4:[address] [facility] BUN 11.8 9.8 - 20.1 mg/dL 04/01/2024 4:[address] [facility] Creatinine 0.57 0.57 - 1.11 mg/dL 04/01/2024 4:[address] [facility] Alkaline Phosphatase 75 40 - 150 U/L 04/01/2024 4:[address] [facility] ALT 36 <=55 U/L 04/01/2024 4:[address] [facility] AST 29 5 - 34 U/L 04/01/2024 4:[address] [facility] Protein Total 7.4 6.4 - 8.3 gm/dL 04/01/2024 4:[address] [facility] Albumin 4.1 3.4 - 4.8 gm/dL 04/01/2024 4:[address] [facility] Globulin Total 3.3 2.6 - 4.0 gm/dL 04/01/2024 4:[address] [facility] Albumin/Globulin Ratio 1.2 0.9 - 1.6 04/01/2024 4:[address] [facility] Bilirubin Total 1.2 0.2 - 1.2 mg/dL 04/01/2024 4:[address] [facility] eGFR >90 >90 mL/min/1.7 3m2 04/01/2024 4:[address] [facility] Comment:The GFR result was c alculated using the updated CKD-EPI Creatinine Equation (2020). Blood BLOOD SPECIMEN / Unknown Lab Venipuncture / Unknown 04/01/2024 4:07 PM RHIC SYSTEMS SAFETY ENGINEER 04/01/2024 4:35 PM RHIC SYSTEMS SAFETY ENGINEER Bettina Champion APRN-[facility] KIMI ORDERABLES Performing Organization Address [facility] Co de Phone Number [facility] [address] [place] [address] * PHOSPHORUS BLOOD (04/01/2024 4:07 PM RHIC SYSTEMS SAFETY ENGINEER) Only the most recent of4 resultswithin the time period is included. Phosphorus 3.7 2.5 - 4.5 mg/dL 04/01/2024 4:55 PM RHIC SYSTEMS SAFETY ENGINEER [facility] Blood BLOOD SPECIMEN / Unknown Lab Venipuncture / Unknown 04/01/2024 4:07 PM RHIC SYSTEMS SAFETY ENGINEER 04/01/2024 4:35 PM RHIC SYSTEMS SAFETY ENGINEER Bettina Champion APRN-[facility] [place] KIMI ORDERABLES Performing Organization Address [facility] Co de Phone Number [facility] [address] [place] [address] * MAGNESIUM BLOOD (04/01/2024 4:07 PM RHIC SYSTEMS SAFETY ENGINEER) Only the most recent of6 resultswithin the time period is included. Magnesium 1.9 1.6 - 2.6 mg/dL 04/01/2024 4:55 PM RHIC SYSTEMS SAFETY ENGINEER [facility] Blood BLOOD SPECIMEN / Unknown Lab Venipuncture / Unknown 04/01/2024 4:07 PM RHIC SYSTEMS SAFETY ENGINEER 04/01/2024 4:35 PM RHIC SYSTEMS SAFETY ENGINEER Bettina Champion [facility] - [place] KIMI ORDERABLES Performing Organization Address [facility] de Phone Number [facility] [address] [place] [address] * (ABNORMAL) VITAMIN B12 FOLATE PANEL (04/01/2024 4:07 PM RHIC SYSTEMS SAFETY ENGINEER) Only the most recent of2 resultswithin the time period is included. Vitamin B12 943(H) 213 - 816 pg/mL 04/01/2024 5:31 PM RHIC SYSTEMS SAFETY ENGINEER [facility] Folate 15.0 7.0 - 31.4 ng/mL 04/01/2024 5:31 PM RHIC SYSTEMS SAFETY ENGINEER [facility] Blood BLOOD SPECIMEN / Unknown Lab Venipuncture / Unknown 04/01/2024 4:07 PM RHIC SYSTEMS SAFETY ENGINEER 04/01/2024 4:35 PM RHIC SYSTEMS SAFETY ENGINEER Bettina OLIVEROS LAB - PAR[place] KIMI ORDERABLES Performing Organization Address [facility] de Phone Number [facility] [address] [place] [address] * (ABNORMAL) IRON + TRANSFERRIN PANEL (04/01/2024 4:07 PM RHIC SYSTEMS SAFETY ENGINEER) Only the most recent of2 resultswithin the time period is included. Iron 94 50 - 170 ug/dL 04/01/2024 5:10 PM RHIC SYSTEMS SAFETY ENGINEER [facility] Transferrin 424(H) 180 - 382 mg/dL 04/01/2024 5:10 PM RHIC SYSTEMS SAFETY ENGINEER [facility] TIBC Calculated 530(H) 261 - 497 ug/dL 04/01/2024 5:10 PM RHIC SYSTEMS SAFETY ENGINEER [facility] Iron Saturation % 18 11 - 45 % 04/01/2024 5:10 PM RHIC SYSTEMS SAFETY ENGINEER [facility] Blood BLOOD SPECIMEN / Unknown Lab Venipuncture / Unknown 04/01/2024 4:07 PM RHIC SYSTEMS SAFETY ENGINEER 04/01/2024 4:35 PM RHIC SYSTEMS SAFETY ENGINEER Bettina Champion APRN-[facility] LAB - [place] KIMI ORDERABLES Performing Organization Address City/[facility] de Phone Number [facility] [address] [place] [address] * FERRITIN (04/01/2024 4:07 PM RHIC SYSTEMS SAFETY ENGINEER) Only the most recent of2 resultswithin the time period is included. Ferritin 13 5 - 204 ng/mL 04/01/2024 5:17 PM RHIC SYSTEMS SAFETY ENGINEER [facility] Blood BLOOD SPECIMEN / Unknown Lab Venipuncture / Unknown 04/01/2024 4:07 PM RHIC SYSTEMS SAFETY ENGINEER 04/01/2024 4:35 PM RHIC SYSTEMS SAFETY ENGINEER Bettina Champion APRN-[facility] - [place] KIMI ORDERABLES [facility] [address] * LIPID PROFILE (04/01/2024 4:07 PM RHIC SYSTEMS SAFETY ENGINEER) Only the most recent of2 resultswithin the time period is included. Cholesterol 179 <200 mg/dL 04/01/2024 4:[address] [facility] Triglycerides 58 <150 mg/dL 04/01/2024 4:[address] [facility] HDL Cholesterol 58 >40 mg/dL 4:[address] [facility] Chol HDL Ratio 3.1 1.0 - 6.0 04/01/2024 4:[address] [facility] LDL Calculated 109 65 - 130 mg/dL 04/01/2024 4:[address] [facility] VLDL Calculated 12 <=30 mg/dL 4 4:[address] [facility] Blood BLOOD SPECIMEN / Unknown Lab Venipuncture / Unknown 04/01/2024 4:07 PM RHIC SYSTEMS SAFETY ENGINEER 04/01/2024 4:35 PM RHIC SYSTEMS SAFETY ENGINEER Narrative [facility] - 04/01/2024 4:55 PM [facility] Lipid Profile Comment: CHOLESTEROL LEVEL..................CLINICAL INTERPRETATION LESS [...] 9.5 ...................... 7.0 3X AVERAGE...................>23........................>11 Bettina Champion APRN-[facility] - [place] KIMI ORDERABLES Performing Organization Address [facility] Co de Phone Number [facility] [address] [place] [address] * CARDIAC RHYTHM STRIP ORDER (07/12/2022 10:42 AM CDT) Only the most recent of2 resultswithin the time period is included. Narrative 07/12/2022 10:42 AM CDT Ordered by an unspecified provider. Scanned Document CARDIAC SERVICES ORD ERABLES * GLUCOSE - POINT OF CARE (07/10/2022 11:34 AM CDT) Only the most recent of8 resultswithin the time period is included. [facility] Glucose WB/POC 75 70 - 125 mg/dL 07/10/2022 11:36 AM CDT [facility] Specimen Type Cap Fingerstick 2022 11:36 AM CDT [facility] Blood BLOOD SPECIMEN / Unknown 07/10/2022 11:34 AM CDT 07/10/2022 11:35 AM CDT Sandy Johnson MD LAB - POINT OF C ARE ORDERABLES Performing Organization Address [facility] Co de Phone Number [facility] [address] [place] [address] * HEMOGLOBIN A1C (07/09/2022 5:20 AM CDT) Only the most recent of2 resultswithin the time period is included. Hemoglobin A1c 5.0 4.2 - 5.6 % 07/09/2022 5:50 AM CDT [facility] Estimated Average Glucose 97 mg/dL 07/09/2022 5:50 AM CDT [facility] Blood BLOOD SPECIMEN / Unknown Lab Venipuncture / Unknown 07/09/2022 5:20 AM CDT 07/09/2022 5:34 AM CDT Narrative [facility] - 07/09/2022 5:50 AM CDT HbA1c Interpretation: Normal: < 5.7% Pre-diabetes: 5.7-6.4% Diabetes: Equal to or greater than 6.5% Test results diagnostic of diabetes should be repeated for confirmation. Treatment target values recommended by ADA and other clinical organizations should be used to evaluate metabolic control in patients. This test should not replace glucose testing for patients with Type 1 diabetes, pediatric patients, or women. Falsely low HbA1c results may be observed in patients with clinical conditions that shorten erythrocyte life span or decrease mean erythrocyte age such as the presence of unstable hemoglobin variants, elevated hemoglobin F level or other causes of hemolytic anemia. HbA1c may not accurately reflect glycemic control when clinical conditions that affect erythrocyte survival are present. Severe Iron deficiency anemia may yield falsely high results. Hemoglobin A1c assay should not be used to diagnose or monitor diabetes in patients with malignancy, recent blood transfusion, chronic kidney or liver disease. This method may yield falsely low results when hemoglobin (HbF) exceeds 5% in the specimen. The [employer] assay for the measurement of HbA1c is a National Glycohemoglobin Standardization Program (NGSP) certified method. Sandy Johnson MD LAB - CHEMISTRY ORDERABLES [facility] [address] * POTASSIUM BLOOD (07/09/2022 12:39 AM CDT) Potassium 4.7 3.4 - 5.1 mmol/L 07/09/2022 12:56 AM CDT [facility] Blood BLOOD SPECIMEN / Unknown Lab Venipuncture / Unknown 07/09/2022 12:39 AM CDT 07/09/2022 12:42 AM CDT Sandy Johnson MD LAB - CHEMISTRY ORDERABLES [facility] [address] * GROSS + MICRO EXAM (ILL) (07/08/2022 1:56 PM CDT) Only the most recent of2 resultswithin the time period is included. 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 07/10/2022 11:46 AM CDT [facility] Microscopic Description and Comment Microscopic examination is performed and substantiates the above diagnosis. 07/10/2022 11:46 AM CDT [facility] Gross Description The requisition and specimen(s) are identified with the patient's name, Itzel Williamson. Received in formalin, specimen stomach remnant-sleeve gastrectomy , is a stapled portion of stomach 20.1 x 6.2 x 3.4 cm demonstrating smooth purple yun to focally hemorrhagic serosa with scant attached yellow-yun perigastric adipose tissue. Opening reveals pink-yun to focally hemorrhagic mucosa with prominent rugal folds, no lesions or masses grossly identified. The wall thickness is 0.1-0.2 cm. [employer] Plant [employer] sections are submitted in cassettes A1-A2 with sections subjacent to the staple line in A1. AW 07/10/2022 11:46 AM CDT [facility] Disclaimer The performance characteristics of all immunohistochemical and indirect immunofluorescence stains (if any) cited in this report were determined by the [facility] of [facility]. Some of these tests were developed by our own laboratory and have not been cleared or approved by the US Food and Drug Administration. The FDA does not require this test to go through premarket FDA review. These tests are used for clinical purposes. They should not be regarded as investigational or for research. This laboratory is certified under the Clinical Laboratory Improvement Amendments (CLIA) as qualified to perform high complexity clinical laboratory testing. H&E slides and special stains prepared at [facility], [place]. [address] (CLIA# [id number]) unless otherwise specified. This case was interpreted by the [facility] Department of Pathology. When applicable, select reference laboratory testing is performed at the [facility] Pathology [facility], [address] [place] [id number]. 07/10/2022 11:46 AM CDT [facility] Embedded Images 07/10/2022 11:46 AM CDT [facility] Pathology/Cytolo gy SPECIMEN FROM STOMACH OBTAINED BY PARTIAL GASTRECTOMY / Unknown 07/08/2022 1:56 PM CDT 07/09/2022 9:58 AM CDT Comment:Pre-op diagnosis: Morbid obesity (CMS/HCC) [E66.01] Sandy Johnson MD LAB - PATHOLOGY/ CYTOLOGY ORDERABLES Performing Organization Address [facility]/State/[facility] Co de Phone Number [facility] [address] * ETT LINE PERFORMABLE (07/08/2022 12:59 PM CDT) Narrative Satish Sunshine APRN-CRNA - 07/08/2022 12:59 PM CDT Satish Sunshine APRN-CRNA 07/08/2022 1:00 PM Endotracheal Tube Placement: Patient Location: OR. Procedure: intubation (91016). Procedure Section: Sedation: under general anesthesia. Indications for Airway Management: anesthesia Induction: standard IV and modified rapid sequence Patient Position: ramp/troop pillow Mask Ventilation: not attempted. Blade Type: Sarina Blade Size: 3 Laryngoscopy View: grade 1 (full cords) Intubation Adjuncts: stylet Tube: endotracheal tube Placement: oral Tube type: cuff - inflated Tube Size (FR): 7.5 Depth of Insertion (CM): 21 Measured From: lips Cuff Inflated With: air Number of Attempts: 1. Ventilation between attempts: No. Placement Verified By: bilateral breath sounds, chest auscultation and CO2 monitor Tube secured with: adhesive tape. Dentition unchanged? Yes Difficult Airway? No. Staff Section Anesthesia Provider: Satish Sunshine APRN-ANAMARIA, Performed the procedure Provider #1: Manish Hair MD. Manish Hair MD GENERAL ANESTHESIA O RDERABLES * HCG URINE QUALITATIVE (07/08/2022 8:51 AM CDT) Only the most recent of2 resultswithin the time period is included. hCG Qualitative Urine Negative Negative 07/08/2022 9:04 AM CDT [facility] Specific [place] UA 1.025 1.005 - 1.030 07/08/2022 9:04 AM CDT [facility] Urine URINE / Unknown Collection / Unknown 07/08/2022 8:51 AM CDT 07/08/2022 8:56 AM CDT Narrative [facility] - 07/08/2022 9:04 AM CDT Manish Hair MD LAB - URINALYSIS ORD ERABLES Performing Organization Address City/[facility]/ZIP Co de Phone Number [facility] [address] [place] [address] * TYPE + SCREEN PANEL (07/02/2022 10:23 AM RHIC SYSTEMS SAFETY ENGINEER) Only the most recent of2 resultswithin the time period is included. ABO Rh O POS 07/02/2022 11:03 AM RHIC SYSTEMS SAFETY ENGINEER [facility] Antibody Screen NEG 11:03 AM RHIC SYSTEMS SAFETY ENGINEER [facility] Blood Bank BLOOD SPECIMEN / Unknown Lab Venipuncture / Unknown 07/02/2022 10:23 AM RHIC SYSTEMS SAFETY ENGINEER 07/02/2022 10:27 AM RHIC SYSTEMS SAFETY ENGINEER Manish Hair MD LAB - BLOOD BANK ORD ERABLES Performing Organization Address City/[facility]/ZIP Co de Phone Number [facility] [address] [place] [address] * NICOTINE + METABOLITES BLOOD (06/28/2022 9:51 AM RHIC SYSTEMS SAFETY ENGINEER) Only the most recent of3 resultswithin the time period is included. Nicotine <5 ng/mL 07/02/2022 2:05 PM RHIC SYSTEMS SAFETY ENGINEER [facility] ([facility]) Comment: Consistent with abstinence from nicotine-containing products for at least 1 week. INTERPRETIVE INFORMATION: Nicotine and Metabolites, Serum or Plasma, Quantitative Methodology: Quantitative Liquid Chromatography-Tandem Mass Spectrometry Positive cutoff: 5 ng/mL For medical purposes only; not valid for forensic use. This test is designed to evaluate recent use of nicotine-containing products. Passive and active exposure cannot be discriminated definitively, although a cutoff of 10 ng/mL cotinine is frequently used for surgery qualification purposes. For smoking cessation programs or compliance testing, the absence of expected drug(s) and/or drug metabolite(s) may indicate non-compliance, inappropriate timing of specimen collection relative to drug administration, poor drug absorption, or limitations of testing. This test cannot distinguish between use of tobacco and purified nicotine products. The concentration value must be greater than or equal to the cutoff to be reported as positive. This test was developed and its performance characteristics determined by [facility]. It has not been cleared or approved by the US Food and Drug Administration. This test was performed in a CLIA certified laboratory and is intended for clinical purposes. Performed By: [facility] [address] [place] [address] Vending Stand Supervisor: Ahsan Leslie MD, PhD Cotinine <5 ng/mL 07/02/2022 2:05 PM RHIC SYSTEMS SAFETY ENGINEER [facility] ([facility]) Blood BLOOD SPECIMEN / Unknown Lab Venipuncture / Unknown 06/28/2022 9:51 AM RHIC SYSTEMS SAFETY ENGINEER 06/28/2022 10:14 AM RHIC SYSTEMS SAFETY ENGINEER Sandy Johnson MD LAB - CHEMISTRY ORDERABLES [facility] 2threads [facility]) [address] [place] [address], [facility] * ECHO COMPLETE (06/07/2022 9:00 AM RHIC SYSTEMS SAFETY ENGINEER) LV biplane EF 57 % SSM CV FUJI PACS LV A2C EF 55 % SSM CV FUJ I PACS LV A4C EF 59 % SSM CV FUJ I PACS LV stroke vol 2D teich 54.306 ml SSM CV FUJI PACS LV stroke vol index A4C MOD 77.768 ml SSM CV FUJI PACS LVIDd 4.34 3.5 - 6.0 cm SSM CV FUJI PACS LVIDs 2.83 2.1 - 4.0 cm SSM CV FUJI PACS IVSd MM 0.927 0.6 - 1.1 cm SSM CV FUJI PACS Fractional Shortening 2D 35 28 - 44 % SSM CV FUJI PACS LV ESV BP 50.155 mL SSM CV FUJ I PACS LV ESV A2C 54.474 mL SSM CV FU JI PACS LV EDV BP 116.343 mL SSM CV [facility] I PACS LV ESV A4C 46.331 mL SSM CV FU JI PACS LV EDV A2C 103.597 mL SSM CV FU JI PACS LV EDV A4C 132.241 mL SSM CV FU JI PACS LV ESV 2D 30.4 mL SSM CV [facility] I PACS LV EDV 2D 84.707 mL SSM CV [facility] I PACS LVOT diam 2.0 cm SSM CV [facility] I PACS LVOT area 3.14 cm2 SSM CV [facility] I PACS LV RWT 0.484 SSM CV [facility] I PACS LV Artis A4C 8.037 cm SSM CV F UJI PACS MV E pk pradeep 88.289 cm/s SSM CV F UJI PACS MV A pk pradeep 60.564 cm/s SSM CV F UJI PACS MV DT 120 ms SSM CV [facility] I PACS LA vol BP 51.045 mL SSM CV [facility] I PACS LVOT pk pradeep 1.45984 m/s SSM CV F UJI PACS LA vol index 25.6 mL/m2 [facility] RVIDd 3.9 cm SSM CV [facility] I PACS Est RA pressure 3.0 mmHg [facility] AV pk grad 5 mmHg SSM CV FU JI PACS AV pk pradeep 1.60113 m/s SSM CV [facility] I PACS LVOT pk grad 4.786 mmHg [facility] AV area pk pradeep 3.2 cm2 [facility] C [facility] AV Doppler pradeep index pk pradeep 0.98 SSM CV FUJI PACS MV PHT 35 ms SSM CV FUJ I PACS MV area PHT 6.29 cm2 SSM CV F UJI PACS MV decel slope 737.844 cm/s2 SSM C V FUJI PACS TR pk pradeep 137.8 cm/s SSM CV FUJ I PACS sPAP 10.6 mmHg SSM CV FUJ I PACS RVSP 10.6 mmHg SSM CV FUJ I PACS TR pk grad 8 mmHg SSM CV FU JI PACS PV pk pradeep 88.124 cm/s SSM CV FUJ I PACS PV pk grad 3 mmHg SSM CV FU JI PACS Sinus of Valsalva 2.90 cm SSM CV FUJI PACS Ascending aorta 3.10 cm SSM CV FUJI PACS IVC size 1.9 cm SSM CV FUJ I PACS AV pradeep ratio 0.98 SSM CV FUJI PACS LVIDs index 1.21 cm/m2 SSM CV F UJI PACS LV LVIDd index 1.86 cm/m2 SSM C V FUJI PACS Systolic Blood Pressure 121 SSM CV FUJI PACS TAPSE 1.9 cm SSM CV FUJ I PACS RA area 16.2 cm2 SSM CV FUJ I PACS Anatomical Region Laterality Modality Ultrasound Narrative 06/07/2022 4:18 PM RHIC SYSTEMS SAFETY ENGINEER Left Ventricle: Left ventricle size is normal. Normal wall thickness. Normal systolic function with a visually estimated EF of 55 - 60%. EF by 2D Farr biplane is 57%. Normal wall motion. Normal diastolic function. Pulmonic Valve: Trace transvalvular regurgitation. Tricuspid Valve: Trace transvalvular regurgitation. RVSP is 10.6 mmHg. Left Ventricle Left ventricle size is normal. Normal wall thickness. Normal systolic function with a visually estimated EF of 55 - 60%. EF by 2D Farr biplane is 57%. Normal wall motion. Normal diastolic function. Right Ventricle Right ventricle size is normal. Normal systolic function. Left Atrium Left atrium size is normal. Systolic blunting in the pulmonary veins. Right Atrium Right atrium size is normal. IVC/SVC IVC diameter is less than or equal to 21 mm and decreases greater than 50% during inspiration; therefore the estimated right atrial pressure is normal (~3 mmHg). Mitral Valve Valve structure is normal. No restricted motion. No transvalvular regurgitation. No stenosis. Tricuspid Valve Valve structure is normal. No restricted motion. Trace transvalvular regurgitation. RVSP is 10.6 mmHg. No stenosis. Aortic Valve Valve structure is trileaflet. No restricted motion. Physiologically normal transvalvular regurgitation. No stenosis. Pulmonic Valve Valve structure is normal. Trace transvalvular regurgitation. No stenosis. Ascending Aorta Normal sized sinus of Valsalva (aortic root) and ascending aorta. Pericardium No pericardial effusion. Study Details Study quality was adequate. A complete echocardiogram was performed. Patient exhibited sinus rhythm. Technical difficulties due to patient's body habitus. Prior Study No prior study available for comparison. Jose Juan Romo MD ECHO CUPID * (ABNORMAL) PT PTT PANEL (01/15/2022 11:48 AM CDT) PT 13.3 11.3 - 14.8 sec 01/15/2022 12:28 PM CDT [facility] INR 1.04(L) 2 - 3 01/15/2022 12:28 PM CDT [facility] PTT 28.4 23.0 - 38.4 sec 01/15/2022 12:28 PM CDT [facility] Blood BLOOD SPECIMEN / Unknown Lab Venipuncture / Unknown 01/15/2022 11:48 AM CDT 01/15/2022 12:10 PM CDT Narrative [facility] - 01/15/2022 12:28 PM CDT Recommended therapeutic INR ranges for Oral Anticoagulant Therapy: 2.0-3.0 For prevention of Thrombosis or Embolism and treatment of Venous Thrombosis. 2.5- 3.5 for prevention of Recurrent Embolism or treatment of patients with Mechanical Prosthetic Heart Valves. Sandy Johnson MD LAB - COAGULATIO N ORDERABLES Performing Organization Address City/State/[facility] Co de Phone Number [facility] [address] * TSH (01/15/2022 11:48 AM CDT) TSH 1.695 0.35 - 4.94 uIU/mL 01/15/2022 12:53 PM CDT [facility] Blood BLOOD SPECIMEN / Unknown Lab Venipuncture / Unknown 01/15/2022 11:48 AM CDT 01/15/2022 12:10 PM CDT Sandy Johnson MD LAB - CHEMISTRY ORDERABLES Performing Organization Address City/[facility]/ZIP Co de Phone Number [facility] [address] * CARDIAC EKG ORDER (11/20/2021 1:39 PM CDT) Narrative 11/20/2021 1:39 PM CDT Ordered by an unspecified provider. Scanned Document CARDIAC SERVICES ORD ERABLES * EKG 12-LEAD (11/15/2021 3:25 PM CDT) Ventricular Rate 75 BPM [facility] Atrial Rate 75 BPM [facility] P-R Interval 166 ms [facility] QRS Duration ms 92 ms [facility] Q-T Interval ms 376 ms [facility] QTC Calculation (Bezet) 419 ms [facility] MUSE Calculated P [place] 51 degrees [facility] MUSE Calculated R [place] 0 degrees [facility] MUSE Calculated T [place] 14 degrees [facility] MUSE Interpretation EKG NORMAL SINUS RHYTHM NORMAL ECG WHEN COMPARED WITH ECG OF 04-MAR-2012 11:32, NO SIGNIFICANT CHANGE WAS FOUND Confirmed by ANDRZE WHITTAKER, [facility] ([id number]), medical editor RAUL CHAMBERS ([id number]) on 11/16/2021 8:35:15 AM [facility] MUSE 11/15/2021 3:25 PM CDT 11/16/2021 8:35 AM CDT Sandy Johnson MD ECG ORDERABLES Performing Organization Address City/[facility]/ZIP Co de Phone Number [facility] M[facility] * XR CHEST 2VW (11/15/2021 3:15 PM CDT) Anatomical Region Laterality Modality Chest Computed Radiogr aphy 11/15/2021 3:21 PM CDT Impressions 11/15/2021 3:22 PM CDT IMPRESSION: The chest is within normal limits. > Interpreting Provider: Kathy Gupta MD on 11/15/2021 3:22 PM Narrative 11/15/2021 3:22 PM CDT PROCEDURE: XR CHEST 2VW 11/15/2021 3:21 PM FINDINGS AND IMPRESSION: HISTORY: Z01.818: Encounter for other preprocedural examination. COMPARISON: 03/04/2012. FINDINGS: Two views of the chest show no evidence of pulmonary disease. The heart and mediastinum are within normal limits. The diaphragms are smooth and the costophrenic angles are clear. The lungs are radiographically clear. Bony thorax is normal. Procedure Note Kathy Gupta MD - 11/15/2021 PROCEDURE: XR CHEST 2VW 11/15/2021 3:21 PM FINDINGS AND IMPRESSION: HISTORY: Z01.818: Encounter for other preprocedural examination. COMPARISON: 03/04/2012. FINDINGS: Two views of the chest show no evidence of pulmonary disease. The heart and mediastinum are within normal limits. The diaphragms are smooth and the costophrenic angles are clear. The lungs are radiographically clear. Bony thorax is normal. IMPRESSION: The chest is within normal limits. > Interpreting Provider: Kathy Gupta MD on 11/15/2021 3:22 PM Sandy Johnson MD DIAGNOSTIC IMAGI NG ORDERABLES * NEURAXIAL BLOCK (10/18/2014 2:13 AM CDT) Narrative Adelaida Agrawal APRN-CRNA - 10/18/2014 2:13 AM CDT JANINE Love 10/18/2014 2:13 AM NEURAXIAL BLOCK Patient Location: OB Pre Procedure Indication: at patient's request and labor analgesia Anticoagulation /Antithrombosis Status Confirmed: Yes Preanesthetic Checklist: patient identified, IV checked, site marked, risks and benefits discussed, surgical consent verified, monitors and equipment checked, pre-op evaluation done, timeout performed, informed consent obtained and questions answered / anesthesia plan accepted Monitors: BP and Pulse Ox Patient Condition: awake Patient Position: sitting Procedure Block Performed: combined spinal and epidural Prep: Betadine Sterile Field: sterile gloves, sterile field established, cap/hat and mask Approach: midline Skin Numbed with: lidocaine 1% Epidural Needle Type: Espocan Needle Gauge: 17 Needle Length: 3.5 in Placement Site: L3-L4 Number of Attempts: 2 Loss of ResistanceTechnique: saline Loss of Resistance: 7 cm Catheter Length at Skin: 16 cm CSF Aspirated from Catheter: negative Blood Aspirated from Catheter: negative Test Dose: lidocaine 1.5% with 1 200 k epinephrine 3 ml Test Dose Response: negative Spinal Needle Type: pencil-point Needle Gauge: 27 G Needle Length: 5 in CSF: free flow, aspiration before injection and aspiration during injection Local Anesthetic: bupivacaine 0.75% in dextrose 5 Spinal Additive: fentanyl 25 mcg Events CSF return negative injection not painful no paresthesia no other event Degree of Difficulty: moderate Position Post Procedure: head of bed elevated 30 degrees, supine and left uterine displacement Vital signs monitored and stable throughout. See Anesthesia Intraop record for details. Block Performed by: Nghia CONRAD Adelaida MEHTA GENERAL ANESTHESIA ORDERABLES * RPR (10/17/2014 9:54 PM CDT) [facility] RPR Nonreactive Nonreactive 10/19/2014 1:04 PM CDT [facility] Blood BLOOD SPECIMEN / Unknown Lab Venipuncture / Unknown 10/17/2014 9:54 PM CDT 10/17/2014 10:05 PM CDT Melanie Mack MD LAB - CHEMIS TRY ORDERABLES [facility] [address] * (ABNORMAL) AMNISURE - POCT (IP) BEAKER (10/17/2014 9:19 PM CDT) Only the most recent of2 resultswithin the time period is included. [facility] Amnisure POCT Detected(A) Not detected G [facility] POCT TESTING Lot # [id number] [facility] POCT TESTING Expiration Date 10/26/2016 [facility] POCT TESTING QC Verified Yes Yes [facility] POC T TESTING Fluid specimen (specimen) BODY FLUID SPECIMEN / Unknown 10/17/2014 9:19 PM CDT Melanie Mack MD LAB - POINT OF CARE ORDERABLES [facility] POCT TESTING [address] * (ABNORMAL) URINALYSIS ROUTINE W/REFLEX TO CULTURE (05/01/2014 11:22 AM RHIC SYSTEMS SAFETY ENGINEER) Only the most recent of2 resultswithin the time period is included. Color UA Yellow 05/01/2014 11:46 AM RHIC SYSTEMS SAFETY ENGINEER AM LABORATORY Clarity UA Clear 05/01/2014 11:46 AM RHIC SYSTEMS SAFETY ENGINEER AM LABORATORY Glucose UA Negative Negative 05/01/2014 11:46 AM [facility] Bilirubin UA 1+(A) Negative 05/01/2014 11:46 AM [facility] Ketone UA Trace(A) Negative 05/01/2014 11:46 AM [facility] Specific [place] UA >=1.030 1.005 - 1.030 05/01/2014 11:46 AM [facility] pH UA 5.0 5.0 - 8.0 pH 05/01/2014 11:46 AM [facility] Protein UA Negative Negative 05/01/2014 11:46 AM [facility] Urobilinogen UA 0.2 0.2 - 1.0 EU/dL 05/01/2014 11:46 AM [facility] Nitrite UA Negative Negative 05/01/2014 11:46 AM [facility] Blood UA Negative Negative 05/01/2014 11:46 AM [facility] Leukocyte UA Negative Negative 05/01/2014 11:46 AM [facility] Ictotest Negative Negative 05/01/2014 11:46 AM [facility] Urine Microscopy Urine microscopy not indicated 05/01/2014 11:46 AM [facility] Reflex Status Culture not indicated 05/01/2014 11:46 AM [facility] Urine URINE SPECIMEN OBTAINED BY CLEAN CATCH PROCEDURE / Unknown 05/01/2014 11:22 AM RHIC SYSTEMS SAFETY ENGINEER 05/01/2014 11:37 AM [facility] Miller Landeros PA-C LAB - URINALYSIS ORD ERABLES Performing Organization Address [facility]/ZIP Co de Phone Number [facility] [address] [place], [place] [address] * BLOOD TYPE ABO+ RH PANEL (05/01/2014 11:00 AM RHIC SYSTEMS SAFETY ENGINEER) ABO O 05/01/2014 11:52 AM RHIC SYSTEMS SAFETY ENGINEER [facility] Rh Type Positive 05/01/2014 11:52 AM RHIC SYSTEMS SAFETY ENGINEER [facility] Miscellaneous samples (specimen) BLOOD SPECIMEN / Unknown 05/01/2014 11:00 AM RHIC SYSTEMS SAFETY ENGINEER 05/01/2014 11:13 AM RHIC SYSTEMS SAFETY ENGINEER Miller Landeros PA-C LAB - BLOOD BANK ORD ERABLES [facility] [address] [place], [place] [id number] [place] [address] * (ABNORMAL) HCG BETA BLOOD QUANTITATIVE (05/01/2014 11:00 AM RHIC SYSTEMS SAFETY ENGINEER) Only the most recent of2 resultswithin the time period is included. hCG Quantitative 25,262.44 (H) 0.0 - 5 mIU/mL 05/01/2014 11:44 AM RHIC SYSTEMS SAFETY ENGINEER [facility] Blood BLOOD SPECIMEN / Unknown 05/01/2014 11:00 AM RHIC SYSTEMS SAFETY ENGINEER 05/01/2014 11:13 AM RHIC SYSTEMS SAFETY ENGINEER Narrative [facility] - 05/01/2014 11:44 AM RHIC SYSTEMS SAFETY ENGINEER Interpretation Comment: Non- pre-menopausal........ < 5.0 mIU/ml Post-menopausal........ < 9.5 mIU/ml HCG LEVELS IN WEEKS FROM LMP (GESTATIONAL AGE) 3 Weeks LMP: 5-50 mIU/ml 4 Weeks LMP: 5-426 mIU/ml 5 Weeks LMP: 18-7,340 mIU/ml 6 Weeks LMP: 1,080-56,500 mIU/ml 7-8 Weeks LMP: 7,650-229,000 mIU/ml 9-12 Weeks LMP: 25,700-288,000 mIU/ml 13-16 Weeks LMP: 13,300-254,000 mIU/ml 17-24 Weeks LMP: 4,060-165,400 mIU/ml 25-40 Weeks LMP: 3,640-117,000 mIU/ml Non- females: <5.0 mIU/ML Postmenopausal females: <9.5 mIU/ml Miller COCHRAN - CHEMISTRY LUZ NATH Performing Organization Address City/[facility]/ZIP Co de Phone Number [facility] [address] * (ABNORMAL) LIPASE BLOOD (05/01/2014 11:00 AM RHIC SYSTEMS SAFETY ENGINEER) Lipase 6(L) 8 - 78 U/L 05/01/2014 12:10 PM RHIC SYSTEMS SAFETY ENGINEER [facility] Blood BLOOD SPECIMEN / Unknown 05/01/2014 11:00 AM RHIC SYSTEMS SAFETY ENGINEER 05/01/2014 11:13 AM RHIC SYSTEMS SAFETY ENGINEER Miller Landeros PA-C LAB - CHEMISTRY LUZ NATH Performing Organization Address [facility] de Phone Number [facility] [address] Care Teams In Service Coordinator Relationship Specialty Start Date End Date López Hutchinson MD [address] [place] [address] PCP - General Internal Medicine 11/15/21
--- OUTSIDE RECORDS SUMMARY | 2024-06-10 08:32 | XMS_ITS ---
Author Organization Formerly [facility], [facility] Address [address] [place] [address] Care Team Providers Care Engineering Leader Name Role Phone Jayde Navarrete Primary Care Provider Allergies No Known Allergies REASON FOR VISIT 2 Month Psych F/U & Med Refill Medications Medication SIG (Take, Route, Frequency, [...] ast year? No Points 0 Interpretation Negative Encounters Encounter Location Date Provider Diagnosis Formerly [facility] [address] [place] [address] 04/06/2024 Jayde Navarrete TAMAR (generalized anxiety disorder) F41.1 ; Depression, major, recurrent F33.9 and ADHD (attention deficit hyperactivity disorder) F90.9 Assessments Encounter Date Diagnosis (ICD Code) Assessment Notes Treatment Notes Treatment Clinical Notes Section Notes 04/06/2024 TAMAR (generalized anxiety disorder) (ICD-10 - F41.1) 04/06/2024 Depression, major, recurrent (ICD-10 - F33.9) 04/06/2024 ADHD (attention deficit hyperactivity disorder) (ICD-10 [...] have ADHD/autism). 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 Substance use includes cannabis, vaping daily. Today's visit: Patient is a 29-year-old female who presents for a psychiatric follow-up over the phone and is located in [place]. Previously seen on 01/13/2024 and during this [...] or be administered own oral medications per [facility] protocols. Provided informed consent with understanding of side effects, adverse effects, risks and benefits as well as alternative treatments as previously discussed and with the above recommended medications & other aspects of the treatment program. Agrees to return sooner if symptoms worsen or suicidal or homicidal ideations occur. Plan Of Treatment Medication Medication Name Sig Start Date Stop Date Notes Venlafaxine HCl ER 150 MG 1 capsule with food Orally Once a day for 30 days ARIPiprazole 2 MG 1 tablet Orally Once a day for 30 days hydrOXYzine HCl 25 MG 1-2 tablets as nee ded Orally twice a day for 30 days 04/06/2024 Treatment Notes Assessment Notes ADHD (attention deficit hype ractivity disorder) History: Hx of taking 10 mg of Lexapro (ineffective, trialed 1 year), Zoloft ( could not function), Strattera 2023 (nausea). 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 Hx of diagnostic hx of bipolar disorder, depression. Denies hx of abuse/trauma. Denies any previous psychiatric inpatient stays, denies hx of SI/SA/SIB/HI, AVH/paranoia. Has two sons, 8 and 4 (who have ADHD/autism). 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 Substance use includes cannabis, vaping daily. Today's visit: Patient is a 29-year-old female who presents for a psychiatric follow-up over the phone and is located in [place]. Previously seen on 01/13/2024 and during this [...] or be administered own oral medications per [facility] protocols. Provided informed consent with understanding of side effects, adverse effects, risks and benefits as well as alternative treatments as previously discussed and with the above recommended medications & other aspects of the treatment program. Agrees to return sooner if symptoms worsen or suicidal or homicidal ideations occur. Next Appt Details Follow Up: 2 weeks, Reason: med f/u Progress Notes * Itzel WILLIAMSONDOB: [birth year] (29 yo F)Acc No.[id number]:04/06/2024 Patient: Itzel GROSS Provider: REFUGIO Capone :1995 A ge:29 Y S ex:Female Date:04/06/2024 Address:[address] [place] [address] Subjective: * Chief Complaints: * 2 Month Psych F/U & Med Refill * HPI: P sych F/U: Changes since last visit?: S tates I've been better, not doing great at all . States she'sbeen so anxious I guess I've been depressed so bad, I can barely function . Stateshas been depressed for months and the anxiety started happening for months.Denies anything new happening in persona life still dealing with separation fromher . States not taking care of herself. States feeling all anxious tex especially in the morning, having panic and I'm so scared . All I do iscry . States going to [facility] in [place] scheduled for the and will be her first appt as an intake. Denies noticing a differencewith her medication but not been consistent with that and is a lot andmissing about 50% of the week. Set reminders and get on a routine. Denies anythoughts of or suicide I don't' have the energy to do all that . Stateshas some support and my boyfriend which helps a little bit. Tries talking tofamily my whole family is broken apart . Has been on hydroxyzine before for pirscilla. Estimating 5-6 hours of sleep a night. Appetite has been poor. States it'shard to take care of her hygiene. States feeling overwhelmed, but I can't work, and I can't lose my job . States when boyfriend came to visit I was still inthe same . Wonders if she can have time off work because she is not functioning well.. D epression Screening: PHQ-9 L ittle interest or pleasure in doing things?Not at all F eeling down, depressed, or hopeless N early every day T rouble falling or staying asleep, or sleeping too much N early every day F eeling tired or having little energy N early every day P oor appetite or overeating N early every day F eeling bad about yourself or that you are a failure, or have let yourself or your family down N early every day T rouble concentrating on things, such as reading the newspaper or watching television N early every day M oving or speaking so slowly that other people could have noticed; or the opposite, being so fidgety or restless that you have been moving around a lot more than usual N early every day T houghts that you would be better off or of hurting yourself in some way N ot at all T otal Score 2 1 I nterpretation S evere Depression Intervention D epression Screening Findings P ositive F ollow-Up for Depression P rescribed psychotropic medications S creening: [place] Suicide Severity Rating Scale (LF) D o you want to initiate with S creener form 1 . Wish to be : Have you wished you were or wished you could go to sleep and not wake up? N o 2 . Suicidal Thoughts: Have you actually had any thoughts of killing yourself? N o 6 . Suicide Behaviour: Have you ever done anything,started to do anything, or prepared to end your life? N o C SSRS Interpretation and Follow Up Plan: CSSRS Interpretation and Follow Up Plan M oderate or High risk requires selection of a follow up plan C SSRS No/Low: intervention not needed at this time I nterim History: Emergency room visit N o. Was hospitalized N o. * ROS: P sych ROS: Constitutional A ll systems negative or controlled on medication unless indicated otherwise.. * Medical History: * Surgical History: G allbladder Removed Gastric Sleeve 2022 * Hospitalization/Major Diagno stic Procedure: C -Diff 2021Gallbladder Removed Gastric Sleeve 2022Natural Child x 2 * Family History: F ather: . M other: alive. S iblings: diagnosed with Bipolar disorder, unspecified. 3 brother(s) , 6 sister(s) . 2 son(s) . . Mother-Diabetes, Hypertension Father passed from Melanoma Cancer two sisters have bipolar sons- 8 and 4 both autstic and ADHD. * Social History: P rimary Social History: L iving Arrangement L iving Arrangement: D ependent Living L iving with: O ther: Spouse I s this a supportive environment? 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 PAST PSYCHIATRIC MEDICATIONS: lexapro-2021 didn't workzoloft- 2014 made me feel terrible. P ERSONAL HISTORY: D ESCRIPTION OF CHILDHOOD: It was okay, but there was 10 of us. I feel like it was average. HISTORY OF PHYSICAL, VERBAL, or SEXUAL ABUSE: denies. MARITAL HISTORY: for 1 year. CHILDREN: 2 sons. EDUCATION: Some College. 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 M iscellaneous: M ethod of learning P referred method of learning: D emonstration D rug/Alcohol: A MINNIE-C (Standard) D id you have a drink containing alcohol in the past year? N o P oints 0 I nterpretation N egative * Medications: T akingCalcium 500-2.5 MG-MCG Tablet Chewable 1 tablet with a meal Orally Once a day Multivitamin - Tablet 1 tablet Orally Once a day ARIPiprazole 2 MG Tablet 1 tablet Orally Once a day Venlafaxine HCl ER 150 MG Capsule Extended Release 24 Hour 1 capsule with food Orally Once a day Medication List reviewed and reconciled with the patientTaking Calcium 500-2.5 MG-MCG Tablet Chewable 1 tablet with a meal Orally Once a day Taking Multivitamin - Tablet 1 tablet Orally Once a day Taking ARIPiprazole 2 MG Tablet 1 tablet Orally Once a day Taking Venlafaxine HCl ER 150 MG Capsule Extended Release 24 Hour 1 capsule with food Orally Once a day Medication List reviewed and reconciled with the patient * Allergies: N .K.D.A.no[Allergies Verified] Objective: * Vitals: * Examination: M ental Status Exam: SENSORIUM AND COGNITION A lert, A&OX4. ATTENTION AND CONCENTRATION N o deficits. APPEARANCE P arjun interview - unable to determine appearance.. ATTITUDE AND BEHAVIOR C ooperative , receptive. MEMORY A dequate. EYE CONTACT P arjun interview. AFFECT P arjun interview - THERESE. MOOD D ysthymic, tearful/crying. SPEECH QUANTITY A ppropriate. SPEECH QUALITY S pontaneous , Appropriate volume. THOUGHT PROCESS C oherent and goal directed. THOUGHT CONTENT N o evidence of delusional content , No reports of paranoia. LANGUAGE A ppropriate - WDL. MOTOR ACTIVITY P arjun interview, THERESE. SUICIDAL IDEATION D enies SI or present thoughts of self -harm, did have self harm thoughts this morning b ut resisted urges. HOMICIDAL IDEATION D enies homicidal ideation or thoughts of aggression. HALLUCINATIONS D enies AVH, does not appear to be responding to internal stimuli. . INSIGHT A dequate. JUDGMENT A dequate. FUND OF KNOWLEDGE A dequate. ABILITY TO PARTICIPATE IN TREATMENT A dequate. WILLINGNESS TO PARTICIPATE IN TREATMENT A dequate. ? Assessment: * Assessment: 1. G AD (generalized anxiety disorder) - F41.1 2 . D epression, major, recurrent - F33.9 (Primary) 3 . A DHD (attention deficit hyperactivity disorder) - F90.9 Plan: * Treatment: 2. G AD (generalized anxiety disorder) Start hydrOXYzine HCl Tablet, 25 MG, 1-2 tablets as needed, Orally, twice a day, 30 days, 120, Refills 1. 3. A DHD (attention deficit hyperactivity disorder) Notes:History:Hx of taking 10 mg of Lexapro (ineffective, trialed 1 year), Zoloft ( could not function), Strattera 2023 (nausea). 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 Hx of diagnostic hx of bipolar disorder, depression. Denies hx of abuse/trauma. Denies any previous psychiatric inpatient stays, denies hx of SI/SA/SIB/HI, AVH/paranoia. Has two sons, 8 and 4 (who have ADHD/autism). 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 Substance use includes cannabis, vaping daily. Today's visit:Patient is a 29-year-old female who presents for a psychiatric follow-up over the phone and is located in [place]. Previously seenon 01/13/2024 andduring this appt was increased on Venlafaxine to 150 mg with a referral to anew therapist.Previous PHQ-9 [id number], today is21.Presents with worsening depression and anxiety in the [...] 04/15/2024 to address ongoing stressors and coping skills.Unable to complete AIMS due to nature of appt, denies any irregular muscle movements; would benefit from an in person appointment. No acute safety concerns the time of this appt, she is agreeableto treatment plan and was provided an opportunity to ask questions. Mayself-administer medications or be administered own oral medications per[facility] protocols. Provided informed consent with understanding of sideeffects, adverse effects, risks and benefits as well as alternative treatmentsas previously discussed and with the above recommended medications & otheraspects of the treatment program. Agrees to return sooner if symptoms worsen orsuicidal or homicidal ideations occur. * Procedure Codes: * Follow Up: 2 weeks (Reason: med f/u) * * ISE COUNSELOR Sign off status: Completed true * Provider: Maria M Navarrete PMHNP Date: 1 06/07/2023 Generated for Paulo albert/Casimiro/Lucy on: 0 06/10/2024 08:32 AM APPRISE COUNSELOR History and Physical Notes * HPI (History of Present Illness) Category Sub-Category Detail Notes Category Not es Interim History Was hospitalized No Emergency room visit No Depression Screening PHQ-9 Little inte rest or pleasure in doing things: Not at all Feeling down, depressed, or hopeless: Ne santa every day Trouble falling or staying asleep, or sl eeping too much: Nearly every day Feeling tired or having little energy: N early every day Poor appetite or overeating: Nearly ever y day Feeling bad about yourself o r that you are a failure, or have let yourself or your family down: Nearly every day Trouble concentrating on thi ngs, such as reading the newspaper or watching television: Nearly every day Moving or speaking so slowly that other people could have noticed; or the opposite, being so fidgety or restless that you have been moving around a lot more than usual: Nearly every day Thoughts that you would be b jojo off or of hurting yourself in some way: Not at all Total Score: 21 Interpretation: Severe Depression Intervention Depression Screening Findings: P ositive Follow-Up for Depression: Prescribed psy chotropic medications Psych F/U Changes since last visit?: States I've been better, not doing great at all . States she's been so anxious I guess I've been depressed so bad, I can barely function . has been depressed for months and the anxiety started happening for months. Denies anything new happening in persona life still dealing with separation from her . States not taking care of herself. States feeling all anxious all day especially in the morning, having panic and I'm so scared . All I do is cry . going to [facility] in [place] scheduled for the of this month and will be her first appt as an intake. Denies noticing a difference with her medication but not been consistent with that and is a lot and missing about 50% of the week. Set reminders and get on a routine. Denies any thoughts of or suicide I don't' have the energy to do all that . States has some support and my boyfriend which helps a little bit. Tries talking to family my whole family is broken apart . Has been on hydroxyzine before for a rash. Estimating 5-6 hours of sleep a night. Appetite has been poor. States it's hard to take care of her hygiene. States feeling overwhelmed, but I can't work, and I can't lose my job . States when boyfriend came to visit I was still in the same . Wonders if she can have time off work because she is not functioning well. Screening [place] Suicide Sev erity Rating Scale (LF) Do you want to initiate with: Screener form 1. Wish to be : Have you wished you were or wished you could go to sleep and not wake up?: No 2. Suicidal Thoughts: Have you actually had any thoughts of killing yourself?: No 6. Suicide Behavior Question: Have you ever done anything,started to do anything, or prepared to end your life?: No Do Not Use CSSRS Interpretation and Follow Up Plan CSSRS Interpretation and Follow Up Plan Moderate or High risk requires selection of a follow up plan: CSSRS No/Low: intervention not needed at this time Examination Category Sub-Category Detail Notes Category Not es Mental Status Exam SENSORIUM AND COGNITION Alert, A&OX 4 ATTENTION AND CONCENTRATION No deficits APPEARANCE Phone interview - un able to determine appearance. ATTITUDE AND BEHAVIOR Cooperative , rece ptive MEMORY Adequate EYE CONTACT Phone interview AFFECT Phone interview - UT A MOOD Dysthymic, tearful/c rying SPEECH QUANTITY Appropriate SPEECH QUALITY Spontaneous , Approp riate volume THOUGHT PROCESS Coherent and goal di rected THOUGHT CONTENT No evidence of delus ional content , No reports of paranoia MOTOR ACTIVITY Phone interview, THERESE SUICIDAL IDEATION Denies SI or present thoughts of self -harm, did have self harm thoughts this morning but resisted urges HOMICIDAL IDEATION Denies homicidal marina ation or thoughts of aggression HALLUCINATIONS Denies AVH, does not appear to be responding to internal stimuli. INSIGHT Adequate JUDGMENT Adequate FUND OF KNOWLEDGE Adequate ABILITY TO PARTICIPATE IN TREATMENT Adeq uate WILLINGNESS TO PARTICIPATE IN TREATMENT Adequate LANGUAGE Appropriate - WDL
--- OUTSIDE RECORDS SUMMARY | 2024-06-10 08:32 | XMS_ITS | Referral Summary ---
Author Organization [facility] Address [address] [address] Care Team Providers Care Panelboard Tank Pumper Name Role Phone López Hutchinson MD Primary Care Provider [phone] [facility],non-owned Affiliates and Associated Physician Practices is amultiple site organization consisting of ambulatory clinics and hospital sitesin [place], [place], [place] and [place]. This disclosure is being madepursuant to the Care Everywhere program and may not contain all information available regarding this patient. Last updated 18.[facility] Encounters Date Type Department Care Team Description 05/17/2024 2:30 PM DENTAL THERAPIST Office Visit [facility] Weight Management Services [address] [place] [phone] Bianca Rico APRN-CNP Depression, unspecified depression type (Primary Dx); S/P laparoscopic sleeve gastrectomy; Gastroesophageal reflux disease, unspecified whether esophagitis present; History of morbid obesity; Anxiety; Binge eating 05/08/2024 Travel 04/06/2024 Travel 04/01/2024 4:00 PM DENTAL THERAPIST - 04/01/2024 11:59 PM DENTAL THERAPIST Hospital Encounter [facility] [address] [place], [place] [phone] Bettina Champion APRN-CNP Discharge Disposition: Home or Self Care 04/01/2024 2:30 PM DENTAL THERAPIST Office Visit [facility] Weight Management Services [address] [place] [phone] Vasu-Meskil, Bettina M, SHEET METAL ROOFER-ELECTRIC PLATER S/P laparoscopic sleeve gastrectomy (Primary Dx) from Last 3 Months Allergies No known active allergies Medications * Be aware that medications may not be up to date on this document. Alwaysverify current medications with the patient. Medication Sig Dispensed Refills Start Date End Date Status multivitamin daily tablet Take 1 (one) tablet by mouth 2 times daily Active Probiotic Product (Ancanco) capsuleIndication s:Bariatric surgery status Take 1 (one) [...] Date Diagnosed Date Morbid obesity 07/08/2022 Immunizations Name Administration Dates Next Due TDAP (7yrs+) 10/18/2014 Social History Tobacco Use Types Packs/Day Years [...] Recorded Patient Health Questionnaire-2 Score 0 05/17/2024 [facility] [place] [facility] - Occupational Stress [...] place to sleep or slept in a fci (including now)? No 07/08/2022 Sex and Gender Information Value Date Recorded Sex Assigned at Not on file Gender Identity Not on file Sexual Orientation Not on file Last Filed Vital Signs Vital Sign Reading Time Taken Comments Blood Pressure 130/82 05/17/2024 2:00 PM DENTAL THERAPIST Pulse 67 05/17/2024 2:00 PM DENTAL THERAPIST Temperature 36.9 C (98.5 F) 05/17/2024 2:00 PM DENTAL THERAPIST Respiratory Rate 16 05/17/2024 2:00 PM DENTAL THERAPIST Oxygen Saturation 100% 05/17/2024 2:00 PM DENTAL THERAPIST Inhaled Oxygen Concentration 21% 07/09/2022 8 :00 PM CDT Weight 67.4 kg (148 lb 11.2 oz) 05/17/2024 2:00 PM DENTAL THERAPIST Height 166 cm (5' 5.35 ) 05/17/2024 2:00 PM DENTAL THERAPIST Body Mass Index 24.48 05/17/2024 2:00 PM DENTAL THERAPIST Functional Status Functional Status Response Date of [...] person have difficulty concentrating/remembering/making decisions? No 07/10/2022 Plan of Treatment Upcoming Encounters Date Type Department Care Team (Latest Contact Info) Description 06/30/2024 8:55 AM DENTAL THERAPIST Hospital Encounter [facility] [address] [place] [address] Sandy Johnson MD [address] [place] [phone] Surgery General 06/30/2024 8:55 AM DENTAL THERAPIST - 06/30/2024 9:21 AM DENTAL THERAPIST Surgery [facility] [address] [place] [address] Sandy Johnson MD [address] [place] [phone] ESOPHAGOGASTRODUODENOSCOPY WITH BIOPSY 07/13/2024 1:00 PM CDT Office Visit [facility] Weight Management Services [address] [place] [phone] Bianca Rico, SHEET METAL ROOFER-ELECTRIC PLATER [address], [place] [phone] 07/13/2024 1:30 PM [address]T Clinical Support [facility] [address] [place] [phone] Scheduled Procedures Name Priority Associated Diagnoses Date/Ti me ESOPHAGOGASTRODUODENOSCOPY ( EGD) BIOPSY Gastroesophageal reflux disease, unspecified whether esophagitis present 06/30/2024 8:55 AM DENTAL THERAPIST Medical Devices Implanted Type Area Stacker Straightener Device Identifier Shelf Expiration Date Model / Serial / Lot Kit Tissue Clsr Duo Tssl 1 Prefl Syr - [id number] Implanted:Qty : 1 on 07/08/2022 by aSndy Johnson MD at [facility] N/A: [employer] 12/27/2023 [id number] / [id number] / [id number] Procedures Procedure Name Priority Date/Time Associated Diagnosis Comments CBC W AUTO DIFFERENTIAL Routine 04/01/2024 4:07 PM DENTAL THERAPIST S/P laparoscopic sleeve gastrectomy COMPREHENSIVE METABOLIC PANEL Routine 04/01/2024 4:07 PM DENTAL THERAPIST S/P laparoscopic sleeve gastrectomy FERRITIN Routine 04/01/2024 4:07 PM DENTAL THERAPIST S/P laparoscopic sleeve gastrectomy LIPID PROFILE Routine 04/01/2024 4:07 PM DENTAL THERAPIST S/P laparoscopic sleeve gastrectomy MAGNESIUM BLOOD Routine 04/01/2024 4:07 PM DENTAL THERAPIST S/P laparoscopic sleeve gastrectomy VITAMIN D 25-HYDROXY Routine 04/01/2024 4:07 PM DENTAL THERAPIST S/P laparoscopic sleeve gastrectomy VITAMIN B12 FOLATE PANEL Routine 04/01/2024 4:07 PM DENTAL THERAPIST S/P laparoscopic sleeve gastrectomy VITAMIN B1 Routine 04/01/2024 4:07 PM DENTAL THERAPIST S/P laparoscopic sleeve gastrectomy PTH INTACT+CALCIUM Routine 04/01/2024 4: 07 PM DENTAL THERAPIST S/P laparoscopic sleeve gastrectomy PHOSPHORUS BLOOD Routine 04/01/2024 4:07 PM DENTAL THERAPIST S/P laparoscopic sleeve gastrectomy IRON + TRANSFERRIN PANEL Routine 04/01/2024 4:07 PM DENTAL THERAPIST S/P laparoscopic sleeve gastrectomy from Last 3 Months Results * PTH INTACT+CALCIUM (04/01/2024 4:07 PM DENTAL THERAPIST) PTH Intact 26 15 - 65 pg/mL 04/03/2024 11:51 PM DENTAL THERAPIST [facility] ([facility]) Calcium 10.0 8.6 - 10.0 mg/dL 04/03/2024 11:51 PM DENTAL THERAPIST [facility] ([facility]) Comment: Performed By: [employer] [address] [place] [id number] Drum Sander: Ahsan Leslie MD, PhD CLIA Number: [id number] Blood BLOOD SPECIMEN / Unknown Lab Venipuncture / Unknown 04/01/2024 4:07 PM DENTAL THERAPIST 04/01/2024 4:35 PM DENTAL THERAPIST Bettina Champion SHEET METAL ROOFER-ELECTRIC PLATER LAB - PARDEEP KIMI ORDERABLES Performing Organization Address City/[facility] Co de Phone Number [facility] [employer] [facility]) [address] [place] [address] * VITAMIN B1 (04/01/2024 4:07 PM DENTAL THERAPIST) Vitamin B1 Whole Blood 175 70 - 180 nmol/L 04/05/2024 2:50 PM DENTAL THERAPIST [facility] ([facility]) Comment: INTERPRETIVE INFORMATION: Vitamin B1, Whole Blood This assay measures the concentration of thiamine diphosphate (TDP), the primary active form of vitamin B1. Approximately 90 percent of vitamin B1 present in whole blood is TDP. Thiamine and thiamine monophosphate, which comprise the remaining 10 percent, are not measured. This test was developed and its performance characteristics determined by [facility]. It has not been cleared or approved by the US Food and Drug Administration. This test was performed in a CLIA certified laboratory and is intended for clinical purposes. Performed By: [facility] [employer] [address] [place] [address] Drum Sander: Ahsan Leslie MD, PhD CLIA Number: [id number] Blood BLOOD SPECIMEN / Unknown Lab Venipuncture / Unknown 04/01/2024 4:07 PM DENTAL THERAPIST 04/01/2024 4:35 PM DENTAL THERAPIST Bettina Champion SHEET METAL ROOFER-ELECTRIC PLATER LAB - PARDEEP KIMI ORDERABLES Performing Organization Address City/[facility] Co de Phone Number [facility] [employer] [facility]) [address] [place] [address] * VITAMIN D 25-HYDROXY (04/01/2024 4:07 PM DENTAL THERAPIST) Vitamin D, 25 Hydroxy 36.3 30 - 80 ng/mL 04/01/2024 5:18 PM DENTAL THERAPIST [facility] Blood BLOOD SPECIMEN / Unknown Lab Venipuncture / Unknown 04/01/2024 4:07 PM DENTAL THERAPIST 04/01/2024 4:35 PM DENTAL THERAPIST [facility] - 04/01/2024 5:18 PM [facility] Reference Values: The recommendation for 25-Hydroxy Vitamin [...] performed to confirm the result. Bettina Champion SHEET METAL ROOFER-ELECTRIC PLATER LAB - PARDEEP KIMI ORDERABLES Performing Organization Address City/State/[facility] Co de Phone Number [facility] [address] * CBC WITH DIFFERENTIAL (04/01/2024 4:07 PM [facility]) [facility] WBC 7.8 4.0 - 10.7 x10E9/L 04/01/2024 4:38 PM [facility] RBC Count 4.75 3.90 - 5.20 x10E12/L 04/01/2024 4:38 PM [facility] Hemoglobin 13.6 11.9 - 15.8 g/dL 04/01/2024 4:38 PM [facility] Hematocrit 41.8 34.8 - 46.1 % 04/01/2024 4:38 PM [facility] MCV 88.0 80.0 - 98.0 fL 04/01/2024 4:38 PM [facility] MCH 28.6 26.7 - 33.6 pg 04/01/2024 4:38 PM [facility] MCHC 32.5 31.7 - 36.3 g/dL 04/01/2024 4:38 PM [facility] RDW-CV 11.9 11.3 - 14.8 % 04/01/2024 4:38 PM [facility] Platelet Count 248 150 - 420 x10E9/L 04/01/2024 4:38 PM [facility] MPV 9.3 7.8 - 11.4 fL 04/01/2024 4:38 PM [facility] Neutrophil % 60.3 41.0 - 74.0 % 04/01/2024 4:38 PM [facility] Lymphocyte % 30.7 17.0 - 47.0 % 04/01/2024 4:38 PM [facility] Monocyte % 6.6 3.0 - 11.0 % 04/01/2024 4:38 PM [facility] Eosinophil % 1.5 0.0 - 7.0 % 04/01/2024 4:38 PM [facility] Basophil % 0.6 0.0 - 1.6 % 04/01/2024 4:38 PM [facility] Immature Granulocytes % 0.3 0.0 - 1.0 % 04/01/2024 4:38 PM [facility] Neutrophil Absolute 4.69 1.60 - 7.50 x10E9/L 04/01/2024 4:38 PM [facility] Lymphocyte Absolute 2.39 1.00 - 4.40 x10E9/L 04/01/2024 4:38 PM [facility] Monocyte Absolute 0.51 0.15 - 1.00 x10E9/L 04/01/2024 4:38 PM [facility] Eosinophil Absolute 0.12 0.00 - 0.60 x10E9/L 04/01/2024 4:38 PM [facility] Basophil Absolute 0.05 0.00 - 0.13 x10E9/L 04/01/2024 4:38 PM [facility] Blood BLOOD SPECIMEN / Unknown Lab Venipuncture / Unknown 04/01/2024 4:07 PM DENTAL THERAPIST 04/01/2024 4:35 PM [facility] Bettina Champion SHEET METAL ROOFER-ELECTRIC PLATER LAB - HEM ATOLOGY ORDERABLES Performing Organization Address City/State/[facility] Co de Phone Number [facility] [address] * COMPREHENSIVE METABOLIC PANEL (04/01/2024 4:07 PM [facility]) [facility] Glucose 89 70 - 125 mg/dL 04/01/2024 4:55 PM [facility] Sodium 140 136 - 145 mmol/L 04/01/2024 4:55 PM [facility] Potassium 4.0 3.4 - 5.1 mmol/L 04/01/2024 4:55 PM [facility] Chloride 106 98 - 107 mmol/L 04/01/2024 4:55 PM [facility] CO2 26 22 - 29 mmol/L 04/01/2024 4:55 PM [facility] Calcium 9.97 8.4 - 10.2 mg/dL 04/01/2024 4:55 PM [facility] Anion Gap 8 6 - 16 mmol/L 04/01/2024 4:55 PM [facility] BUN 11.8 9.8 - 20.1 mg/dL 04/01/2024 4:55 PM [facility] Creatinine 0.57 0.57 - 1.11 mg/dL 04/01/2024 4:55 PM [facility] Alkaline Phosphatase 75 40 - 150 U/L 04/01/2024 4:55 PM [facility] ALT 36 <=55 U/L 04/01/2024 4:55 PM [facility] AST 29 5 - 34 U/L 04/01/2024 4:55 PM [facility] Protein Total 7.4 6.4 - 8.3 gm/dL 04/01/2024 4:55 PM [facility] Albumin 4.1 3.4 - 4.8 gm/dL 04/01/2024 4:55 PM [facility] Globulin Total 3.3 2.6 - 4.0 gm/dL 04/01/2024 4:55 PM [facility] Albumin/Globulin Ratio 1.2 0.9 - 1.6 04/01/2024 4:55 PM [facility] Bilirubin Total 1.2 0.2 - 1.2 mg/dL 04/01/2024 4:55 PM [facility] eGFR >90 >90 mL/min/1.7 3m2 04/01/2024 4:55 PM [facility] Comment:The GFR result was c alculated using the updated CKD-EPI Creatinine Equation (2020). Blood BLOOD SPECIMEN / Unknown Lab Venipuncture / Unknown 04/01/2024 4:07 PM DENTAL THERAPIST 04/01/2024 4:35 PM [facility] Bettina Champion SHEET METAL ROOFER-ELECTRIC PLATER LAB - PARDEEP KIMI ORDERABLES [facility] [address] * PHOSPHORUS BLOOD (04/01/2024 4:07 PM DENTAL THERAPIST) Phosphorus 3.7 2.5 - 4.5 mg/dL 04/01/2024 4:55 PM DENTAL THERAPIST [facility] Blood BLOOD SPECIMEN / Unknown Lab Venipuncture / Unknown 04/01/2024 4:07 PM DENTAL THERAPIST 04/01/2024 4:35 PM DENTAL THERAPIST Bettina Champion APRN-ELECTRIC PLATER LAB - PARDEEP KIMI ORDERABLES Performing Organization Address [facility] Co de Phone Number [facility] [address] [place] [address] * MAGNESIUM BLOOD (04/01/2024 4:07 PM DENTAL THERAPIST) Magnesium 1.9 1.6 - 2.6 mg/dL 04/01/2024 4:55 PM DENTAL THERAPIST [facility] Blood BLOOD SPECIMEN / Unknown Lab Venipuncture / Unknown 04/01/2024 4:07 PM DENTAL THERAPIST 04/01/2024 4:35 PM DENTAL THERAPIST Bettina Champion APRN-ELECTRIC PLATER LAB - PARDEEP KIMI ORDERABLES Performing Organization Address [facility] Co de Phone Number [facility] [address] [place] [address] * (ABNORMAL) VITAMIN B12 FOLATE PANEL (04/01/2024 4:07 PM DENTAL THERAPIST) Vitamin B12 943(H) 213 - 816 pg/mL 04/01/2024 5:31 PM DENTAL THERAPIST [facility] Folate 15.0 7.0 - 31.4 ng/mL 04/01/2024 5:31 PM DENTAL THERAPIST [facility] Blood BLOOD SPECIMEN / Unknown Lab Venipuncture / Unknown 04/01/2024 4:07 PM DENTAL THERAPIST 04/01/2024 4:35 PM DENTAL THERAPIST Bettina Champion APRN-ELECTRIC PLATER LAB - PARDEEP KIMI ORDERABLES Performing Organization Address [facility]/ZIP Co de Phone Number [facility] [address] [place] [address] * (ABNORMAL) IRON + TRANSFERRIN PANEL (04/01/2024 4:07 PM DENTAL THERAPIST) Pathologist [facility] Iron 94 50 - 170 ug/dL 04/01/2024 5:10 PM DENTAL THERAPIST [facility] Transferrin 424(H) 180 - 382 mg/dL 04/01/2024 5:10 PM DENTAL THERAPIST [facility] TIBC Calculated 530(H) 261 - 497 ug/dL 04/01/2024 5:10 PM DENTAL THERAPIST [facility] Iron Saturation % 18 11 - 45 % 04/01/2024 5:10 PM DENTAL THERAPIST [facility] Blood BLOOD SPECIMEN / Unknown Lab Venipuncture / Unknown 04/01/2024 4:07 PM DENTAL THERAPIST 04/01/2024 4:35 PM DENTAL THERAPIST Bettina Champion APRN-ELECTRIC PLATER LAB - PARDEEP KIMI ORDERABLES Performing Organization Address [facility] Co de Phone Number [facility] [address] [place] [address] * FERRITIN (04/01/2024 4:07 PM DENTAL THERAPIST) [facility] Ferritin 13 5 - 204 ng/mL 04/01/2024 5:17 PM DENTAL THERAPIST [facility] Blood BLOOD SPECIMEN / Unknown Lab Venipuncture / Unknown 04/01/2024 4:07 PM DENTAL THERAPIST 04/01/2024 4:35 PM DENTAL THERAPIST Bettina Champion SHEET METAL ROOFER-ELECTRIC PLATER LAB - PARDEEP KIMI ORDERABLES Performing Organization Address City/[facility]/ZIP Co de Phone Number [facility] [address] [place] [address] * LIPID PROFILE (04/01/2024 4:07 PM DENTAL THERAPIST) Pathologist [facility] Cholesterol 179 <200 mg/dL 04/01/2024 4:55 PM DENTAL THERAPIST [facility] Triglycerides 58 <150 mg/dL 04/01/2024 4:55 PM DENTAL THERAPIST [facility] HDL Cholesterol 58 >40 mg/dL 4:55 PM DENTAL THERAPIST [facility] Chol HDL Ratio 3.1 1.0 - 6.0 04/01/2024 4:55 PM [facility] LDL Calculated 109 65 - 130 mg/dL 04/01/2024 4:55 PM [facility] VLDL Calculated 12 <=30 mg/dL 4:55 PM [facility] Blood BLOOD SPECIMEN / Unknown Lab Venipuncture / Unknown 04/01/2024 4:07 PM DENTAL THERAPIST 04/01/2024 4:35 PM [facility] - 04/01/2024 4:55 PM [facility] Lipid Profile Comment: CHOLESTEROL LEVEL..................CLINICAL INTERPRETATION LESS [...] 9.5 ...................... 7.0 3X AVERAGE...................>23........................>11 Bettina Champion SHEET METAL ROOFER-ELECTRIC PLATER LAB - PARDEEP KIMI ORDERABLES [facility] [address] [facility] [place] [address], [facility] from Last 3 Months Advance Directives * Full Code (Latest Code Status on File) Date Activated Date Inactivated Comments 07/08/2022 3:55 PM 07/10/2022 3:37 PM * Full Code Date Activated Date Inactivated Comments 10/17/2014 9:41 PM 10/19/2014 6:52 PM * Full Code Date Activated Date Inactivated Comments 10/17/2014 9:10 PM 10/17/2014 9:41 PM Care Teams Panelboard Tank Pumper Relationship Specialty Start Date End Date López Hutchinson MD [address] [place] [address] PCP - General Internal Medicine 11/15/21
--- OUTSIDE RECORDS SUMMARY | 2024-06-10 08:32 | XMS_ITS ---
Author Organization [facility] Address [address] [place] [address] Care Team Providers Care Seating And Mobility Technologist Name Role Phone Jayde Navarrete Primary Care Provider Allergies No Known Allergies Reason For Referral Reason Needs assistance get ting a new therapist through [facility] Diagnosis 1 Depression, major, r ecurrent (F33.9) Referral Organization [facility] Referring Provider First Name Caitie Referring Provider Last Name Tara Referring Provider Speciality Behavioral Health Referred Provider Specialty Behavioral H [facility] Clinical Notes Silvia Faulkner 01/14/2024 11:11:18 AM >HN received a referral for a client to initiate therapy. She has a provider currently, but she is wanting someone new. The client realizes that she needs to call [facility] to inquire about switching therapists. Referral Priority Routine REASON FOR VISIT 2-3 Week Psych Med Check Medications Medication SIG (Take, Route, Frequency, Duration) [...] Once a day for 30 days Active Encounters Encounter Location Date Provider Diagnosis [facility] [address] [place] [address] 01/13/2024 Jayde Navarrete TAMAR (generalized anxiety disorder) F41.1 ; Depression, major, recurrent F33.9 and ADHD (attention deficit hyperactivity disorder) F90.9 Assessments Encounter Date Diagnosis (ICD Code) Assessment Notes Treatment Notes Treatment Clinical Notes Section Notes 01/13/2024 TAMAR (generalized anxiety disorder) (ICD-10 - F41.1) 01/13/2024 Depression, major, recurrent (ICD-10 - F33.9) 01/13/2024 ADHD (attention deficit hyperactivity disorder) (ICD-10 [...] , lives with family. 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 Substance use includes cannabis, vaping daily. Today's visit: Patient is a 28-year-old female who presents for a psychiatric follow-up over the phone and is located in [place]. Previously seen on 12/16/2023 and during this appt was continued on Abilify 2 mg and Effexor 75 mg. Previous PHQ-9 score of 19, today is 14. Reports some improvement from last visit in her depression/anxiet y sx with medication changes; does report interpersonal [...] or be administered own oral medications per [facility] protocols. 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 Substance use includes cannabis, vaping daily. Today's visit: Patient is a 28-year-old female who presents for a psychiatric follow-up over the phone and is located in [place]. Previously seen on 12/16/2023 and during this [...] or be administered own oral medications per [facility] protocols. Provided informed consent with understanding of side effects, adverse effects, risks and benefits as well as alternative treatments as previously discussed and with the above recommended medications & other aspects of the treatment program. Agrees to return sooner if symptoms worsen or suicidal or homicidal ideations occur. Referrals Referral Date Details 01/13/2024 01/13/2024, Needs as sistance getting a new therapist through [facility] Next Appt Details Follow Up: 6 Weeks, Reason: med f/u Progress Notes * Itzel WILLIAMSONDOB: [birth year] (28 yo F)Acc No.[id number]:01/13/2024 Patient: Itzel GROSS Provider: REFUGIO Capone :1995 A ge:28 Y S ex:Female Date:01/13/2024 Address:[address] [place], [place] [id number] Subjective: * Chief Complaints: * 2 -3 Week Psych Med Check * HPI: P sych F/U: Changes since last visit?: S quezada last month has been okay states hard to say, still feel like I'm transitioning to my regular routine, but I do feel a lot better . Will worry about taking Abilify, reports noticing some weight gain. Estimates 6 lbs of weight gain the past month could also be stressed . Feels her depression is better a little bit . States has been working on coping skills. Have feelings of SIB of scratching, financial issues that hit pretty hard today, denies acting on these urges just talked myself down rationalizing with self. Has not secured a new therapist yet just been busy . Anxiety has been okay , feels it's a little better than previous month. Denies any other side effects from medication. Estimates sleeping approximately 6 hours a night. Denies any current feelings of SI/HI.. D epression Screening: PHQ-9 L ittle interest or pleasure in doing things?More than half the days F eeling down, depressed, or hopeless S everal days T rouble falling or staying asleep, or sleeping too much M ore than half the days F eeling tired or having little energy M ore than half the days P oor appetite or overeating S everal days F eeling bad about yourself or that you are a failure, or have let yourself or your family down M ore than half the days T rouble concentrating on things, such as reading the newspaper or watching television S everal days M oving or speaking so slowly that other people could have noticed; or the opposite, being so fidgety or restless that you have been moving around a lot more than usual M ore than half the days T houghts that you would be better off or of hurting yourself in some way (Consider Suicide Assessment Risk) T otal Score 1 4 I nterpretation M oderate Depression Intervention D epression Screening Findings P ositive F ollow-Up for Depression P rescribed psychotropic medications S uicide Risk Assessment Performed 0 01/13/2024 S creening: [place] Suicide Severity Rating Scale (LF) D o [...] No/Low: intervention not needed at this time * ROS: P sych ROS: Constitutional A [...] 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 Tobacco Use T obacco Use: V apes daily * Medications: T akingARIPiprazole 2 MG Tablet 1 tablet Orally Once a day Venlafaxine HCl ER 75 MG Capsule Extended Release 24 Hour 1 capsule with food Orally Once a day Calcium 500-2.5 MG-MCG Tablet Chewable 1 tablet with a meal Orally Once a day Multivitamin - Tablet 1 tablet Orally Once a day Medication List reviewed and reconciled with the patientTaking ARIPiprazole 2 MG Tablet 1 tablet Orally Once a day Taking Venlafaxine HCl ER 75 MG Capsule Extended Release 24 Hour 1 capsule with food Orally Once a day Taking Calcium 500-2.5 MG-MCG Tablet Chewable 1 tablet with a meal Orally Once a day Taking Multivitamin - Tablet 1 tablet Orally Once a day Medication List reviewed and reconciled with the patient * Allergies: N .K.D.A.no[Allergies Verified] Objective: * Vitals: * Examination: M ental Status Exam: SENSORIUM AND COGNITION A lert, A&OX4. ATTENTION AND CONCENTRATION N o deficits. APPEARANCE P arjun interview - unable to determine appearance.. ATTITUDE AND BEHAVIOR C ooperative , calm. MEMORY A dequate. EYE CONTACT P arjun interview. AFFECT P arjun interview - THERESE. MOOD D ysthymic. SPEECH QUANTITY A ppropriate. SPEECH QUALITY S [...] disorder) - F90.9 Plan: * Treatment: 2. 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 Substance use includes cannabis, vaping daily. Today's visit:Patient is a 28-year-old female who presents for a psychiatric follow-up over the phone and is located in [place]. Previously seenon 12/16/2023nd during this appt was continued onAbilify 2 mg and Effexor 75 mg. PreviousPHQ-9 score of19, today is14. Reports someimprovement from last visit in her depression/anxiety sx with medicationchanges; does report interpersonal and financial stressors that continue toplay a factor in her mood stability.Has been taking Effexor 75mg daily for approximately6 weeks with some benefit, will increase to 150mg daily to help target sxfurther. Continue Abilify 2mg daily for augmentation of depression, monitor forweight gain. Encourage continued use of coping skills learned in hospital.Referred to [facility] for assistance with finding [...] occur. * Procedure Codes: * Follow Up: 6 Weeks (Reason: med f/u) * * Sign off status: Completed true * Provider: Maria M Navarrete PMHNP Date: 0 01/13/2024 Generated for Paulo albert/Casimiro/eTsamsmitting on: 0 06/10/2024 08:32 AM DIRECTOR OF PRIMARY CARE History and Physical Notes * HPI (History of Present Illness) Category Sub-Category Detail Notes Category Not es Depression Screening PHQ-9 Little inte rest or pleasure in doing things: More than half the days Feeling down, depressed, or hopeless: Se veral days Trouble falling or staying a sleep, or sleeping too much: More than half the days Feeling tired or having little energy: M ore than half the days Poor appetite or overeating: Several day s Feeling bad about yourself o r that you are a failure, or have let yourself or your family down: More than half the days Trouble concentrating on thi ngs, such as reading the newspaper or watching television: Several days Moving or speaking so slowly that other people could have noticed; or the opposite, being so fidgety or restless that you have been moving around a lot more than usual: More than half the days Thoughts that you would be b jojo off or of hurting yourself in some way: Several days (Consider Suicide Assessment Risk) Total Score: 14 Interpretation: Moderate Depression Intervention Depression Screening Findings: P ositive Follow-Up for Depression: Prescribed psy chotropic medications Suicide Risk Assessment Performed: 01/12 Psych F/U Changes since last visit?: State last month has been okay states hard to say, still feel like I'm transitioning to my regular routine, but I do feel a lot better . Will worry about taking Abilify, reports noticing some weight gain. Estimates 6 lbs of weight gain the past month could also be stressed . Feels her depression is better a little bit . States has been working on coping skills. Have feelings of SIB of scratching, financial issues that hit pretty hard today, denies acting on these urges just talked myself down rationalizing with self. Has not secured a new therapist yet just been busy . Anxiety has been okay , feels it's a little better than previous month. Denies any other side effects from medication. Estimates sleeping approximately 6 hours a night. Denies any current feelings of SI/HI. Screening [place] Suicide Sev erity Rating Scale (LF) Do [...] determine appearance. ATTITUDE AND BEHAVIOR Cooperative , calm MEMORY Adequate EYE CONTACT Phone interview AFFECT Phone interview - UT A MOOD Dysthymic SPEECH QUANTITY Appropriate SPEECH QUALITY Spontaneous , [...] IN TREATMENT Adequate LANGUAGE Appropriate - WDL Consultation Request Notes Referral Date Referring Provider Referred Provider Not es 01/13/2024 Caitie Pacheco , Needs assi stance getting a new therapist through [facility]
[2024-06-10 09:04] LABS: Hematocrit 44.4 % (35.0-49.0); Hemoglobin 14.7 g/dL (12.0-15.0); Mean Corpuscular HGB Conc 33.1 g/dL (32-36); Mean Corpuscular Hemoglobin 27.3 pg (27.0-31.0); Mean Corpuscular Volume 82.4 fL (78.0-102.0); Mean Platelet Volume 9.6 fl (9.2-11.8); Platelet Count Result 283 K/mm3 (150-420); Red Blood Count 5.39 M/mm3 (4.20-5.40); Red Cell Distribution Width 12.7 % (11.6-14.4); White Blood Count 7.4 K/mm3 (4.8-10.8)
[2024-06-10 09:42] LABS: Hemoglobin A1C 5.1 % (<5.7)
[2024-06-10 10:12] LABS: Alanine Aminotransferase 27 U/L (14-59); Albumin Level 4.6 g/dL (3.4-5.0); Alkaline Phosphatase 87 U/L (46-116); Anion Gap 12 mmol/L (4-12); Aspartate Amino Transferase 17 U/L (15-37); Bilirubin,Total 1.4 mg/dL (0.00-1.00); Blood Urea Nitrogen 18 mg/dL (7-18); Calcium 9.5 mg/dL (8.5-10.1); Carbon Dioxide 26 mmol/L (21-32); Chloride 101 mmol/L (98-108); Cholesterol 183 mg/dL (0-200); Estimated Glomerular Filt Rate > 60; Glucose 76 mg/dL (70-99); HDL Direct 62 mg/dL (40-60); LDL Cholesterol Calculated 108 mg/dL (<130); Osmolality Calculated 288 mOsm/kg (285-295); Potassium 4.3 mmol/L (3.5-5.1); Sodium 139 mmol/L (136-145); Thyroid Stimulating Hormone 1.85 uIU/mL (0.36-3.74); Total Protein 8.1 g/dL (6.4-8.2); Triglycerides 65 mg/dL (0-150)
[2024-06-10 10:13] LABS: Amphetamine Screen Urine Positive (Negative); Barbiturate Screen Urine Negative (Negative); Benzodiazepines Screen Urine Negative (Negative); Cannabinoid Screen Urine Positive (Negative); Cocaine Screen Urine Negative (Negative); Methadone Screen Urine Negative (Negative); Opiate Screen Urine Negative (Negative); Phencyclidine Screen Urine Negative (Negative)
== END 2024-06-10 08:27 | disposition home or self-care (01) ==
PROVIDERS: PCP Internal Medicine
DX: Z79.899 Other long term (current) drug therapy (principal)
CPT/HCPCS: 36415; 80053; 80061; 80307; 83036; 84443; 85027

== ENCOUNTER 2024-09-01 16:42 | Outpatient (CLI) | payer OTHER, SELFPAY ==
--- NOTE | ~2024-09-01 | XR_ITS ---
HISTORY: acute posterior neck pain G62.9, no injury COMPARISON: None TECHNIQUE: 3 views of the cervical spine were performed FINDINGS: Visualization of the cervical spine to the inferior endplate of T1. Straightening and slight reversal of the normal curvature of the cervical spine is identified. No prevertebral soft tissue swelling is appreciated. No acute compression fracture is noted. The dens is equidistant between the pillars, without asymmetry. Air column within the trachea is midline. The visualized portions of the bilateral upper lung gordon are unremarkable. IMPRESSION: No acute compression fracture is appreciated. Straightening and slight reversal of the normal curvature of the cervical spine, likely muscular in o rigin. Reviewed, dictated and finalized at location A. IMPRESSION: No acute compression fracture is appreciated. Straightening and slight reversal of the normal curvature of the cervical spine , likely muscular in origin.
--- OUTSIDE RECORDS SUMMARY | 2024-09-01 16:47 | XMS_ITS | Clinical Summary ---
Author Organization [facility] [employer] [place] Address [address] [place] [address] Care Team Providers Care Director International Name Role Phone Unavailable Primary Care Provider [...] 3-dose series) 2014 CERVICAL CANCER SCREENING 01/17/2016 HPV/Cotest (21-29) 01/17/2016 PAP SMEAR 01/17/2016 INFLUENZA VACCINE (#1) 2023 01/29/2018 RSV VACCINE (60+ or ) (1 - 1-dose 75+ series) 2070 HPV VACCINES Aged Out No longer eligi ble based on patient's age to complete this topic
--- OUTSIDE RECORDS SUMMARY | 2024-09-01 16:47 | XMS_ITS | Patient Health Record ---
Author Organization [facility] Address [address] [place] [address] Care Team Providers Care Thumb Sewer Name Role Phone Jayde Navarrete Primary Care Provider Caitie Pacheco Unavailable [phone] Allergies No Known Allergies Reason For Referral Reason Start individual the rapy Diagnosis 1 Depression, major, r ecurrent (F33.9) Referral Organization [facility] Referring Provider First Name Jayde Referring Provider Last Name Landon Referring Provider Speciality Psychiatry Referred Provider Specialty Behavioral [facility] Clinical Notes Dee Campos 09/17 01:19:02 PM >Staff SAMSON talks to Consumer. Consumer is in agreement with referral. Staff SAMSON provides Consumer information on how to get connected with [facility] therapy program. When asked, Consumer is in agreement with getting connected to [facility] to begin process. Consumer transferred. Referral addressed, closing. Referral Priority Routine Reason Needs assistance get ting a new therapist through [facility] Diagnosis 1 Depression, major, r ecurrent (F33.9) Referral Organization [facility] Referring Provider First Name Caitie Referring Provider Last Name Tara Referring Provider Speciality Behavioral Health Referred Provider Specialty Behavioral H [facility] Clinical Notes Silvia Faulkner 01/14/2024 11:11:18 [...] Risk Notes Problem Attention deficit hyperactivity disorder (828060980) ADHD (attention deficit hyperactivity disorder) (F90.9) Active confirmed Problem Generalized anxiety disorder (83013322) TAMAR (generalized anxiety disorder) (F41.1) Active confirmed Problem Recurrent major depression (97381640) Depression, major, recurrent (F33.9) Active confirmed Encounters Encounter Location Date Provider Diagnosis [place] [address] [place] [address] 09/18/2023 Jayde Navarrete TAMAR (generalized anxiety disorder) F41.1 ; Depression, major, recurrent F33.9 and ADHD (attention deficit hyperactivity disorder) F90.9 [facility]ly [facility] [address] [place] [address] 12/16/2023 Jayde Navarrete TAMAR (generalized anxiety disorder) F41.1 ; Depression, major, recurrent F33.9 and ADHD (attention deficit hyperactivity disorder) F90.9 [facility] [address] [address] 01/13/2024 Jayde Navarrete TAMAR (generalized anxiety disorder) F41.1 ; Depression, major, recurrent F33.9 and ADHD (attention deficit hyperactivity disorder) F90.9 [facility] [address] [address] 04/06/2024 Jayde Navarrete TAMAR (generalized anxiety disorder) F41.1 ; Depression, major, recurrent F33.9 and ADHD (attention deficit hyperactivity disorder) F90.[address] [place] [address] 09/10/2023 Jayde Navarrete Depression, major, recurrent F33.[address] [address] 09/18/2023 Caitie Sancy [facility] [address] [place] [address] 12/05/2023 Jayde Walkern [facility] [address] [place] [address] 12/16/2023 Tejinderjesusitaholly SextonNavarrete [address] [address] 04/01/2024 Tejinderjesusitaholly Landon Depression, major, recurrent F33.9 Assessments Encounter Date Diagnosis (ICD Code) Assessment Notes Treatment Notes Treatment Clinical Notes Section Notes 09/10/2023 Depression, major, recurrent (ICD-10 - F33.9) 09/18/2023 TAMAR (generalized anxiety disorder) (ICD-10 - F41.1) 12/16/2023 TAMAR (generalized anxiety disorder) (ICD-10 - F41.1) 01/13/2024 TAMAR (generalized anxiety disorder) (ICD-10 - F41.1) 04/01/2024 Depression, major, recurrent (ICD-10 - F33.9) 04/06/2024 TAMAR (generalized anxiety disorder) (ICD-10 - F41.1) 04/06/2024 Depression, major, recurrent (ICD-10 - F33.9) 01/13/2024 Depression, major, recurrent (ICD-10 - F33.9) 12/16/2023 Depression, major, recurrent (ICD-10 - F33.9) 09/18/2023 Depression, major, recurrent (ICD-10 - F33.9) 12/16/2023 ADHD (attention deficit hyperactivity disorder) (ICD-10 [...] have ADHD/autism). 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 Substance use includes cannabis, vaping daily. Today's visit: Patient is a 28-year-old female who presents for a psychiatric follow-up over the phone and is located in [place]. Previously seen on 09/18/2023 and during this appt was increased on Prozac to 40 mg, continued on Lamictal 150 mg and referred for individual therapy. Previous PHQ-9 score of 15, today is 19. Previous tamar 13, today is 19. Recently hospitalized, 12/04/23 until the for SIB and thoughts of SI. Worsening depressive and anxiety symptoms in the context of psychosocial stressors. Medications adjusted to Effexor for anxiety/depressio n and Abilify for mood stabilization while hospitalized and discontinued Lamictal and Prozac. Pt is hopeful about medication changes, denies any side effects and is taking them daily. Encouraged ongoing therapy, patient to contact [facility] to request switch therapists given poor fit [...] or be administered own oral medications per [facility] protocols. Provided informed consent with understanding of [...] have ADHD/autism). 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 Substance use includes cannabis, vaping daily. Today's visit: Patient is a 28-year-old female who presents for a psychiatric follow-up over the phone and is located in [place]. Previously seen on 08/05/2023 and was continued [...] or be administered own oral medications per [facility] protocols. Provided informed consent with an understanding [...] have ADHD/autism). 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 Substance use includes cannabis, vaping daily. Today's visit: Patient is a 28-year-old female who presents for a psychiatric follow-up over the phone and is located in [place]. Previously seen on 12/16/2023 and during this [...] or be administered own oral medications per [facility] protocols. Provided informed consent with understanding of side effects, adverse effects, risks and benefits as well as alternative treatments as previously discussed and with the above recommended medications & other aspects of the treatment program. Agrees to return sooner if symptoms worsen or suicidal or homicidal ideations occur. 04/06/2024 ADHD (attention deficit hyperactivity disorder) (ICD-10 [...] have ADHD/autism). 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 Substance use includes cannabis, vaping daily. Today's visit: Patient is a 29-year-old female who presents for a psychiatric follow-up over the phone and is located in [place]. Previously seen on 01/13/2024 and during this [...] or be administered own oral medications per [facility] protocols. Provided informed consent with understanding of [...] Insured Coverage Start Date Coverage End Date [facility] Claims Department [address] [place] [address] [phone] [id number] Itzel Williamson Self - patient is the insured 3 4 [facility] Claims Department [address] [place] [address] [phone] [id number] Itzel Williamson Self - patient is the insured [address] [place] [address] [id number] Itzel Williamson Self - patient is the insured [address] [facility] Attn Claims Department [address] [place] [address] [phone] [id number] Itzel Williamson Self - patient is the insured 4 4 [employer] [address] [place] [address] [id number] Itzel Williamson Self - patient is the insured 4 4 Medical (General) History Surgical History Surgery Date(Month/Year) Gallbladder Removed Gastric Sleeve 2022 Hospitalization History Reason Date(Month/Year) Natural Child x 2 Gastric Sleeve 2022 Gallbladder Removed C-Diff 2021
--- OUTSIDE RECORDS SUMMARY | 2024-09-01 16:47 | XMS_ITS | Clinical Summary ---
Author Organization [facility] Address [address] [place] [address] Care Team Providers Care Mail Deliverer Name Role Phone López Hutchinson MD Primary Care Provider [phone] Source Comments [facility] [employer],non-owned Affiliates and Associated Physician Practices is amultiple site organization consisting of ambulatory clinics and hospital sitesin [place], [place], [place] and [place]. This disclosure is being madepursuant to the Care Everywhere program and may not contain all information available regarding this patient. Last updated 18.[facility] [employer] Allergies No known active allergies Medications * This document contains information received from the source organization and may not represent a complete record from that organization. * Be aware that medications may not be up to date on this document. Alwaysverify current medications with the patient. multivitamin daily tablet Take 1 (one) tablet by mouth 2 times daily Active Probiotic Product ([employer]) capsuleIndicati ons:Bariatric surgery status Take 1 (one) capsule by mouth once daily 30 capsule 3 06/28/2022 Active calcium citrate TABS tablet Take by mouth 2 times daily Chews Active lamoTRIgine (LaMICtal) 25 MG tabletIndicatio ns:Mood Disorder Take 1 (one) tablet by mouth 2 times daily for 30 days Reasons: Mood Disorder 60 tablet 05/08/2024 Active Active Problems Problem Noted Date Diagnosed Date Morbid obesity 07/08/2022 Encounters Date Type Department Care Team Description 07/27/2024 Telephone [facility] [employer] Weight Management Services [address] [place] [address] Sandy Johnson MD Appointment 07/20/2024 Telephone [facility] Weight Management Services [address] [place] [address] Sandy Johnson MD Appointment 07/13/2024 Telephone [facility] [address] [place] [address] Sandy Johnson MD Appointment 06/29/2024 Telephone [facility] [address] [place] [address] Sandy Johnson MD Surgery Scheduling from Last 3 Months Immunizations Immunization Administration Dates Next Due TDAP (7yrs+) 10/18/2014 [...] Recorded Patient Health Questionnaire-2 Score 0 05/17/2024 [facility] [place] of Occupat ional Health - Occupational Stress [...] place to sleep or slept in a [facility] (including now)? No 07/08/2022 Comments No Sex and Gender Information Value Date Recorded Sex Assigned at Not on file Legal Sex Female 5:26 PM ART APPRAISER Gender Identity Not on file Sexual Orientation Not on file Last Filed Vital Signs Vital Sign Reading Time Taken Comments Blood Pressure 130/82 05/17/2024 2:00 PM ART APPRAISER Pulse 67 05/17/2024 2:00 PM ART APPRAISER Temperature 36.9 C (98.5 F) 05/17/2024 2:00 PM ART APPRAISER Respiratory Rate 16 05/17/2024 2:00 PM ART APPRAISER Oxygen Saturation 100% 05/17/2024 2:00 PM ART APPRAISER Inhaled Oxygen Concentration 21% 07/09/2022 8 :00 PM CDT Weight 67.4 kg (148 lb 11.2 oz) 05/17/2024 2:00 PM ART APPRAISER Height 166 cm (5' 5.35 ) 05/17/2024 2:00 PM ART APPRAISER Body Mass Index 24.48 05/17/2024 2:00 PM ART APPRAISER Plan of Treatment Health Maintenance Due Date Last Done Comments PAP SMEAR 1995 HEPATITIS C SCREENING 01/11/2013 HEPATITIS B VACCINE (1 of 3 - 19+ 3-dose series) 2014 COVID-19 VACCINE (2023-2 5 season) 2023 DTAP/TDAP/TD VACCINES (2 - T d or Tdap) 10/18/2024 10/18/2014 INFLUENZA VACCINE (Season Ended) 2024 02/28/2019, 01/29/2018 ZOSTER VACCINE (1 of 2) 2045 HIV SCREENING Completed 12/14/2018, 08/28/2018 DEPRESSION SCREENING Completed 05/17/2024, 07/30/2023 HIB VACCINE Aged Out No longer eligi ble based on patient's age to complete this topic HPV VACCINE Aged Out No longer eligi ble based on patient's age to complete this topic MENINGOCOCCAL (Group B) VACCINE SHARED DECISION-MAKING Aged Out No longer eligible based on patient's age to complete this topic MENINGOCOCCAL GROUPS A/C/Y/W VACCINE Aged Out No longer eligible b ased on patient's age to complete this topic PNEUMOCOCCAL VACCINE Aged Out No long er eligible based on patient's age to complete this topic Medical Devices Implanted Type Area Management Trainee Program Stores Device Identifier Shelf Expiration Date Model / Serial / Lot Kit Tissue Clsr Duo Tssl 1 Prefl Syr - [id number] Implanted:Qty : 1 on 07/08/2022 by Sandy Johnson MD at [facility] N/A: [employer] 12/27/2023 [id number] / [id number] / [id number] Insurance MEDICAID - OUT OF [facility] Advance Directives * Full Code (Latest Code Status on File) Date Activated Date Inactivated Comments 07/08/2022 3:55 PM 07/10/2022 3:37 PM * Full Code Date Activated Date Inactivated Comments 10/17/2014 9:41 PM 10/19/2014 6:52 PM * Full Code Date Activated Date Inactivated Comments 10/17/2014 9:10 PM 10/17/2014 9:41 PM Care Teams Mail Deliverer Relationship Specialty Start Date End Date López Hutchinson MD [address] [place] [address] PCP - General Internal Medicine 11/15/21
--- OUTSIDE RECORDS SUMMARY | 2024-09-01 16:47 | XMS_ITS | Encounter Summary ---
Author Organization [facility] Address [address] [place] [address] Care Team Providers Care Home Appliance Installer Name Role Phone López Hutchinson MD Primary Care Provider [phone] Reason for Visit * Reason Onset Date Comments Surgery Scheduling 06/29/2024 Encounter Details Date Type Department Care Team (Late st Contact Info) Description 06/29/2024 Telephone [facility] Weight Management Services [address] [place] [address] Sandy Johnson MD [address] [place] [address] Surgery Scheduling Social History Tobacco Use Types Packs/Day Years Used Date Smoking Tobacco: Former Cigarettes Q uit: 01/26/2019 Passive Smoke Exposure: Never Smokeless Tobacco: Never Alcohol Use Standard Drinks/Week Comments No 0 (1 standard drink = 0.6 oz pur e alcohol) Overall Financial Resource Strain (CARDIA) Answe r Date Recorded How hard is it for you to pa y for the very basics like food, housing, medical care, and heating? Not hard at all 07/08/2022 PHQ-2 Answer Date Recorded Patient Health Questionnaire-2 Score 0 05/17/2024 [facility] [place] of Occupat ional Health - Occupational Stress [...] place to sleep or slept in a fdc (including now)? 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 Answer Date of Assessment Author No 07/10/2022 1:26 PM Malathi Buckley RN * Is person blind or have serious difficulty seeing? Answer Date of Assessment Author No 07/10/2022 1:26 PM Malathi Buckley RN * Does person have serious difficulty walking/climbing stairs? Answer Date of Assessment Author No 07/10/2022 1:26 PM Malathi Buckley RN * Does person have difficulty dressing/bathing? Answer Date of Assessment Author No 07/10/2022 1:26 PM Malathi Buckley RN * Does person have difficulty doing errands alone? Answer Date of Assessment Author No 07/10/2022 1:26 PM Malathi Buckley RN documented as of this encounter Mental Status * Does person have difficulty concentrating/remembering/making decisions? Answer Entry Date Author No 07/10/2022 1:26 PM CDT Connaway, Eliana, RN documented in this encounter Miscellaneous Notes * Telephone Encounter - Ashley Perez CMA - 06/29/2024 10:22 AM BALLING HEAD TENDER [facility] called, spoke to Fatou, she is needing to cancel her procedure tomorrow, due to a familyemergency. Please call her to reschedule. Thanks, Mirela Willams ING HEAD TENDER documented in this encounter Plan of Treatment Not on file documented as of this encounter Visit Diagnoses Not on filedocumented in this encounter Care Teams Home Appliance Installer Relationship Specialty Start Date End Date López Hutchinson MD [address] [place] [id number] PCP - General Internal Medicine 11/15/21 documented as of this encounter
--- OUTSIDE RECORDS SUMMARY | 2024-09-01 16:47 | XMS_ITS | Encounter Summary ---
Author Organization [facility] Address [address] [place] [address] Care Team Providers Care Operational Intelligence Officer Name Role Phone López Hutchinson MD Primary Care Provider [phone] Reason for Visit * Reason Onset Date Comments Scheduling 11/27/2023 EGD Encounter Details Date Type Department Care Team (Late st Contact Info) Description 11/27/2023 Telephone [facility] Weight Management Services [address] [place] [address] Sandy Johnson MD [address] [place] [address] Scheduling (EGD) Social History Tobacco [...] Recorded Patient Health Questionnaire-2 Score 1 07/30/2023 [facility] [place] of Occupat ional Health - Occupational Stress [...] place to sleep or slept in a alf (including now)? 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 Called #[phone], [facility] This is [facility] [employer]. Please have [employer] call #[phone] Sent [employer] message cancelling post op EGD scheduled with Dr. Johnson for 12/03/23. is out - vacation documented in this encounter Plan of Treatment Not on file documented as of this encounter Visit Diagnoses Not on filedocumented in this encounter Care Teams Operational Intelligence Officer Relationship Specialty Start Date End Date López Hutchinson MD [address] [place] [address] PCP - General Internal Medicine 11/15/21 documented as of this encounter
--- OUTSIDE RECORDS SUMMARY | 2024-09-01 16:47 | XMS_ITS | Data Portability ---
Author Organization [employer] , [facility] Address [address] [place] [address] Assessment No assessment recorded. Plan of Treatment Reminders Order Date Submit Date Provider Last Modified By Organization Details Last Modified Time Details Appointments None recorded. Lab pap, LB 2024 025 [facility], [address], [place], [address], 5 10:31:13 unlisted lab - HPV plus CT/GC/trich 2024 025 [facility], [address] [place], [address], 5 13:45:41 CBC w/ auto diff 2024 025 [facility], [address] [place], [address], 5 12:26:46 TSH + free T4, serum 2024 025 [facility], [address] [place], [address], 5 12:10:10 urinalysis, dipstick 2022 023 [facility], [address] [place], [address], 3 14:13:06 test, urine 2021 022 [email or web address] 0 [facility], [address] [facility], [place], [address], 15:29:55 Referral None recorded. Procedures None recorded. Surgeries None recorded. Imaging US, transvagina l 2024 025 Not available 18:26:40 Medication Orders ALIDA (28) 3 mg-0.02 mg tablet 2024 025 [id number], [address] [place], [address], 5 14:39:40 phentermine 37.5 mg tablet [email or web address], [address], [address], 5 14:14:34 Ortho Micronor 0.35 mg tablet 2022 023 [email or web address] [facility], [address], [address], 5 14:14:28 Macrobid 100 mg capsule [address], [address], [address], 5 14:14:31 Lo Loestrin Fe 1 mg-10 mcg (24)/10 mcg (2) tablet 2021 022 [email or web address] [facility], [address], [address], 5 14:14:24 ALIDA (28) 3 mg-0.02 mg tablet 2021 022 [email or web address] [facility] [address] In [facility], [address] [facility] [address], [place], [address], 3 10:57:37 Lexapro 10 mg tablet 2021 022 [email or web address] [facility], [address], [place], [address], 5 14:13:49 Patient TargetsNo targets recorded. Patient Instructions Encounter Date Encounter Id Patient Instructions Last Modified By Organization Details Last Modified Time 10/10/2021 [id number] combination kevan h control pills: care instructions [email or web address] Not available 10/10/2021 16:16:22 Reason for Referral None Reported. Results Created Date Observation Date Name Description Value Unit Range Abnormal Flag Note LastModifiedBy Organization Detail LastModifiedTime 10/11/1910/10/2021 pregn conor test, urine HCG negati ve Not Available [place] [place], [address], 10/10/2021 15:14:13 06/05/19 23 06/05/2022 urina lysis , dipst ick Leukocytes Trace Not Available [address], [address], 06/05/2022 11:35:19 06/05/19 23 06/05/2022 urina lysis , dipst ick Nitrite negati ve Not Available [address], [address], 06/05/2022 11:35:19 06/05/19 23 06/05/2022 urina lysis , dipst ick Urobilinogen .2 Not Available [address], [address], 06/05/2022 11:35:19 06/05/19 23 06/05/2022 urina lysis , dipst ick Protein Trace Not Available [address] [place], [address], 06/05/2022 11:35:19 06/05/19 23 06/05/2022 urina lysis , dipst ick pH 8.0 Not Available [address], [place], [address], 06/05/2022 11:35:19 06/05/19 23 06/05/2022 urina lysis , dipst ick Blood Small Not Available [address], [place], [address], 06/05/2022 11:35:19 06/05/19 23 06/05/2022 urina lysis , dipst ick Specific Mays 1.015 Not Available [address], [place], [address], 06/05/2022 11:35:19 06/05/19 23 06/05/2022 urina lysis , dipst ick Ketone Negati ve Not Available [address], [place], [address], 06/05/2022 11:35:19 06/05/19 23 06/05/2022 urina lysis , dipst ick Bilirubin Modera te Not Available [address], [place], [address], 06/05/2022 11:35:19 06/05/19 23 06/05/2022 urina lysis , dipst ick Glucose Negati ve Not Available [address], [place], [address], 06/05/2022 11:35:19 06/05/19 23 06/05/2022 urina lysis , dipst ick Appearance Clear Not Available [facility] [address] [facility], [place], [address], 06/05/2022 11:35:19 06/05/19 23 06/05/2022 urina lysis , dipst ick Color Yellow Not Available [facility] [address] [facility], [place], [address], 06/05/2022 11:35:19 06/09/19 25 06/10/2024 TSH W/ T4, FREE TSH 1.47 mIU/L 0.55 - 4.78 normal Refer ence Range Femal e aged 18-Ad ult: 0.55- 4.78 Pregn conor Refer ence Range s First Trime ster 0.26- 2.66 Secon d Trime ster 0.55- 2.73 Third Trime ster 0.43- 2.91 Not [place], [address], 06/10/2024 12:10:10 06/09/19 25 06/10/2024 TSH W/ T4, FREE T4, free 1.16 NG/dL 0.89 - 1.76 normal Not Available [facility] [address] [place] [address], [address], 06/10/2024 12:10:10 06/09/19 25 06/10/2024 CBC (INCL UDES DIFF/ PLT) WBC 8.8 thous and/u L 4.0 - 9.8 normal Not [place], [address], 06/10/2024 12:26:46 06/09/19 25 06/10/2024 CBC (INCL UDES DIFF/ PLT) RBC 5.2 berna on/uL 3.9 - 4.9 high Not [place], [address], 06/10/2024 12:26:46 06/09/19 25 06/10/2024 CBC (INCL UDES DIFF/ PLT) hemoglobin 14.2 g/dL 11.8 - 14.8 normal Not Available [address], [address], 06/10/2024 12:26:46 06/09/19 25 06/10/2024 CBC (INCL UDES DIFF/ PLT) hematocrit 43.7 % 35.5 - 44.0 normal Not Available [address], [address], 06/10/2024 12:26:46 06/09/19 25 06/10/2024 CBC (INCL UDES DIFF/ PLT) MCV 84.5 fL 82.0 - 99.0 normal Not Available [address], [address], 06/10/2024 12:26:46 06/09/19 25 06/10/2024 CBC (INCL UDES DIFF/ PLT) MCH 27.5 pg 27.2 - 32.6 normal Not Available [address], [address], 06/10/2024 12:26:46 06/09/19 25 06/10/2024 CBC (INCL UDES DIFF/ PLT) MCHC 32.5 g/dL 31.5 - 35.5 normal Not Available [address], [address], 06/10/2024 12:26:46 06/09/19 25 06/10/2024 CBC (INCL UDES DIFF/ PLT) RDW-CV 12.4 % 11.5 - 14.5 normal Not Available [address], [address], 06/10/2024 12:26:46 06/09/19 25 06/10/2024 CBC (INCL UDES DIFF/ PLT) platelet 236 thous and/u L 140 - 350 normal Not Available [address], [address], 06/10/2024 12:26:46 06/09/19 25 06/10/2024 CBC (INCL UDES DIFF/ PLT) MPV 10.3 fL 9.3 - 12.4 normal Not Available [address], [address], 06/10/2024 12:26:46 06/09/19 25 06/10/2024 CBC (INCL UDES DIFF/ PLT) absolute neutrophil 6.23 thous and/u L 1.90 - 7.00 normal Not Available [address], [address], 06/10/2024 12:26:46 06/09/19 25 06/10/2024 CBC (INCL UDES DIFF/ PLT) absolute lymphocyte 1.95 thous and/u L 0.70 - 4.50 normal Not Available [address], [address], 06/10/2024 12:26:46 06/09/19 25 06/10/2024 CBC (INCL UDES DIFF/ PLT) absolute monocyte 0.54 thous and/u L 0.10 - 1.30 normal Not Available [address], [address], 06/10/2024 12:26:46 06/09/19 25 06/10/2024 CBC (INCL UDES DIFF/ PLT) absolute eosinophil 0.05 thous and/u L <0.70 normal Not Available [address], [address], 06/10/2024 12:26:46 06/09/19 25 06/10/2024 CBC (INCL UDES DIFF/ PLT) absolute basophil 0.04 thous and/u L <0.20 normal Not Available [address], [address], 06/10/2024 12:26:46 06/09/19 25 06/10/2024 CBC (INCL UDES DIFF/ PLT) absolute immature granulocyte 0.00 thous and/u L <0.03 normal Not Available [address] [place], [address], 06/10/2024 12:26:46 06/14/1906/22/2024 THINP REP TIS PAP clinical information: normal None given Not Available [place] [address] [place], [address], 06/22/2024 10:31:13 06/14/1906/22/2024 THINP REP TIS PAP LMP: normal NONE GIVEN Not Available [place] [address] [place], [address], 06/22/2024 10:31:13 06/14/1906/22/2024 THINP REP TIS PAP prev. Pap: normal NONE GIVEN Not Available [place] [address] [place], [address], 06/22/2024 10:31:13 06/14/1906/22/2024 THINP REP TIS PAP prev. BX: normal NONE GIVEN Not Available [place] [address] [place], [address], 06/22/2024 10:31:13 06/14/1906/22/2024 THINP REP TIS PAP source: normal Cervi x Not Available [place] [address] [place], [address], 06/22/2024 10:31:13 06/14/1906/22/2024 THINP REP TIS PAP statement of adequacy: Speci men proce ssed and exami kelly, but unsat isfac tory for evalu ation due to an insuf ficie nt numbe r of squam ous cells . Speci men proce ssed and exami kelly, but unsat isfac tory for evalu ation becau se of infla mmati on obscu ring 75% or more of epith elial cells . Not Available [facility] [place] [address] [place], [address], 06/22/2024 10:31:13 06/14/1906/22/2024 THINP REP TIS PAP interpretati on/result: Cytol ogy Resul ts: Unabl e to provi de inter preta tion due to unsat isfac tory speci men adequ acy. Not Available [place] [address] [place], [address], 06/22/2024 10:31:13 06/14/1906/22/2024 THINP REP TIS PAP comment: normal This case could not be evalu ated with compu ter analy oniel techn ology . The slide was manuholly kebede kelly accor ding to elizabeth albert . Not Available [place] [address] [place], [address], 06/22/2024 10:31:13 06/14/1906/22/2024 THINP REP TIS PAP cytotechnolo gist: normal MVB, CT( CP) CT Scree sobia Locat ion: [place] [address] [place] [address] Not Available [place] [address] [place], [address], 06/22/2024 10:31:13 06/14/1906/22/2024 THINP REP TIS PAP review cytotechnolo gist: normal MDG, CT( CP) CT scree sobia locat ion: [place] [address] [place] [address] Not Available [place] [address] [place], [address], 06/22/2024 10:31:13 06/14/1906/22/2024 THINP REP TIS PAP comment EXPLA NATOR Y NOTE: The Pap is a scree sobia test for cervi herminio cance r. It is not a diagn ostic test and is subje ct to false negat zuhair and false posit zuhair resul ts. It is most relia ble when a satis facto ry sampl e, regul santa obtai klely, is submi tted with relev ant clini herminio findi ngs and histo ry, and when the Pap resul t is evalu ated along with histo che and curre nt clini herminio infor matio n. Not Available [facility] [employer] [facility] [address], [place], [address], 06/22/2024 10:31:13 06/14/19 25 06/22/[address]/GC /TRIC H trichomonas vaginalis TRICH neg negati ve normal Not Available [facility] [address] [place], [address], 06/22/2024 13:45:41 06/14/1906/22/[address]/GC /TRIC H chlamydia trachomatis CT neg negati ve normal This repor t is inten ded for us in clini herminio monit oring and manag ement of patie nts. It is not inten ded for use in medic al-le gal appli catio n. Not Available [facility] [address] [place], [address], 06/22/2024 13:45:41 06/14/1906/22/[address]/GC /TRIC H neisseria gonorrhoeae GC neg negati ve normal This repor t is inten ded for us in clini herminio monit oring and manag ement of patie nts. It is not inten ded for use in medic al-le gal appli catio n. Not Available [facility] [address] [place], [address], 06/22/2024 13:45:41 06/14/1906/22/[address]/GC /TRIC H HPV high risk Negati ve negati ve normal The HPV High Risk assay is inten ded for use as co-te sting with cytol ogy and not as a subst itute for regul ar cervi herminio cytol ogy scree sobia. This assay is not inten ded for use as a scree sobia devic e for women under age 30 with veronika l cervi herminio cytol ogy. Not Available [facility] [address] [facility], [place], [address], 06/22/2024 13:45:41 06/15/19 25 06/14/2024 US, trans vagin al No observ ation record ed. [facility] [address], [place], [address], 06/18/2024 18:23:16 Result Notes None recorded. Problems No Known Problems Procedures Surgical History Date Name Laterality Status Provider Name and Address Organization Details Recorded Time 01/19/20 20 Date of Last Pap Smear completed Leah Gunderson [facility] IV 10/10/2021 15:13:04 03/07/20 17 procedure on gallbladder completed Chelsie Chans [facility] IV 08/08/2021 12:11:41 laparoscopic sleeve gastrectomy completed Elyssa Damon [facility] IV 06/09/2024 14:17:34 Imaging Results Imaging Date Name Status LastModified by Organization Details LastModified Time 06/14/2024 US, transvaginal completed [address], [place], [address], 06/18/2024 18:23:16 Procedure Notes None recorded. Medical Equipment None [...] completed Diflucan 150 mg oral tablet RxNorm: 129015 Allow Substitu tion: True Refill Denied: No Edited by: Leah Mae ) on 01/18/20 Stopped by: Leah Mae ) on 01/18/20 Not Available Not Available Not Available venlafaxi [...] Edited by: Nori Holliday ) on 04/23/20 19 Stopped by: Nori Holliday ) on 04/23/20 19 Not Available Not Available Not Available Zofran 8 mg tablet Take 1/2 - 1 tablet(s ) by mouth q6hrs prn 09/11 completed Zofran 8mg Tablet RxNorm: [id number] Allow Substitu tion: True Refill Denied: No [...] dicloxac illin 250 mg oral capsule RxNorm: [id number] Allow Substitu tion: True Refill Denied: No [...] ramide HCl 10 mg oral tablet RxNorm: 379439 Allow Substitu tion: True Refill Denied: No Edited by: Nori Holliday ) on 04/23/20 19 Stopped by: Nori Holliday ) on 04/23/20 19 Not Available Not Available Not Available amoxicill [...] 15 mg/24 hr Vaginal Ring, Vaginal RxNorm: [id number] Allow Substitu tion: True Refill Denied: No [...] completed Not Available Not Available Not Available aripipraz ole 2 mg tablet TAKE 1 [...] completed Not Available Not Available Not Available Pauline (28) 3 mg-0.02 mg tablet TAKE 1 TABLET BY MOUTH EVERY DAY active Not Available Not Available No t Available Vitals Date Recorded Body height Body mass index (BMI) Body weight Body temperature Systolic blood pressure Diastolic blood pressure Provider Name and Address Organization Details Last Updated DateTime 2 162.56 cm 34.7 kg/m2 06714.6 6 g 98.7 [degF] 116 mm[Hg] 78 mm[Hg] Chelsie Puga [facility] 2 12:08:38 Date Recorded Body height Body mass index (BMI) Body weight Systolic blood pressure Diastolic blood pressure Provider Name and Address Organization Details Last Updated DateTime 10/10/2021 162.56 cm 36.4 kg/m2 40904.58 g 118 mm[Hg] 80 mm[Hg] Leah Gunderson [facility] [employer] [facility] IV 2 15:11:32 Date Recorded Body height Provider Name an d Address Organization Details Last Updated DateTime 06/05/2022 162.56 cm July Ceballos [facility] IV 06/05/2022 10:38:54 Date Recorded Body mass index (BMI) Body weight Body temperature Systolic blood pressure Diastolic blood pressure Provider Name and Address Organization Details Last Updated DateTime 3 42.6 kg/m2 964670. 34 g 97.6 [degF] 112 mm[Hg] 80 mm[Hg] Kye Rees [facility] 3 10:56:59 Date Recorded Body height Body mass index (BMI) Body weight Systolic blood pressure Diastolic blood pressure Provider Name and Address Organization Details Last Updated DateTime 06/09/2024 162.56 cm 24 kg/m2 13298.29 g 102 mm[Hg] 62 mm[Hg] Elyssa Damon [facility] 5 14:20:53 Date Recorded Body height Body mass index (BMI) Body weight Systolic blood pressure Diastolic blood pressure Provider Name and Address Organization Details Last Updated DateTime 06/14/2024 162.56 cm 24.5 kg/m2 73413.7 1 g 110 mm[Hg] 60 mm[Hg] Lillian Gaines [employer] [facility] 5 16:34:31 Social History Question Answer Notes LastModified by Organizat ion Details LastModified Time Tobacco Smoking Status Former Smoker Elyssa diaz, [facility] 06/09/2024 14:17:18 What Is Your Level Of Alcohol Consumption? None Information not available 06/09/2024 If You Are , What Was Your Level Of Alcohol Consumption Prior To ? None [email or web address] Information not available 06/09/2024 Are You Blind Or Do You Have Difficulty Seeing? No [email or web address] Information not available 06/09/2024 Are You Currently Employed? Yes Information not available 08/08/2021 Are You Deaf Or Do You Have Serious Difficulty Hearing? No [email or web address] Information not available 06/09/2024 What Type Of Diet Are You Following? REGULAR Information not available 06/09/2024 Do You Or Have You Ever Used E-cigarettes Or Vape? 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 2 Information not available 08/08/2021 What Is Your Relationship Status? Single Boyfriend = 8 Years And Fob X 2 Information not available 08/08/2021 Are You Sexually Active? Yes Information not available 08/08/2021 At What Age Did You Start Smoking Tobacco? 13 [email or web address] Information not available 06/09/2024 Do You Or Have You Ever Used Smokeless Tobacco? Never Used Smokeless Tobacco [email or web address] Information not available 06/09/2024 How Much Tobacco Do You Smoke? 1 PPD [email or web address] Information not available 06/09/2024 Do You Use Any Illicit Or Recreational Drugs? No [email or web address] Information not available 06/09/2024 How Many Years Have You Smoked Tobacco? 10 [email or web address] Information not available 06/09/2024 Do You Or Have You Ever Used Any Other Forms Of Tobacco Or Nicotine? Yes Information not available 06/09/2024 Sex: Unknown Functional Status Question Answer Note LastModified by Organization D etails LastModified Time What is your exercise level? None Information not available 06/09/2024 Mental Status None recorded. Family History Relationship Description Onset Age of this Age Resolved Age Notes LastModified by Organization Details LastModified Time Father No current problems or disability [email or web address] Not available 09/26 15:13:32 Mother No current problems or disability [email or web address] Not available 09/26 15:13:32 Medical History Condition Response Other Cancer N High Blood Pressure N Colon Cancer N Cytomegalovirus N Hyperthyroidism N Breast Cancer N Herpes (HSV) N MRSA N Blood Transfusion N Lung Cancer N Hypothyroidism N Depression N Incontinence N Panic Attacks N Neurological Disorder N Deep Vein Thrombosis N Anxiety Disorder N Autoimmune disease N Arthritis N Tuberculosis/Positive PPD N Shingles N Polycystic Ovarian Syndrome N Cervical Cancer N Hematuria N Chlamydia N Varicosities N Stroke N Crohn's Disease N Seasonal allergies N Alzheimer's/Dementia N COPD/Emphysema N HPV/Genital Warts N Endometriosis N IBS (Irritable Bowel Syndrome) N History of Abnormal Pap N High Cholesterol N Liver Disease N Fibromyalgia N Kidney Infection N Ulcer N Kidney Disease N HIV N Gallbladder disease N Von Willebrand disease N Sickle Cell Disease/Trait N ADD/ADHD N Eating Disorder N Diabetes Mellitus (non-insulin dependent ) N Anemia N Ovarian Problems N Multiple Sclerosis N Gonorrhea N Frequent Urinary Tract infections N Osteopenia N Headaches/migraines N GERD (reflux) N Ovarian Cancer N Diabetes (insulin dependent) N Seizures/Epilepsy N Fibroids N Asthma N Heart Attack N Endometrial Cancer N Lupus N Rubella N Blood Clotting Disorder N [...] of Flow (days) 7 Current Control Method BCPs Age at Menarche 13 Obstetrics History GPAL:G 2 P 2 0 0 2 Type Value Full Term 2 Living 2 Total 2 Past Encounters Encounter ID Performer Location Encounter Start Date Encounter Closed Date Diagnosis/Indication Diagnosis SNOMED-CT Code Diagnosis ICD10 Code Diagnosis Note [id number] Mick Banda MD [facility] [address] [place] [address] 08/08/2021 11:39:04 08/27/2021 13:32:46 Premenstrual dysphoric disorder 801613 F32.81 Discussed at length medication options and [...] period of time Contracept ion care management 080886541 Z30.9 Pt educated on risks which include but not limited to stroke, blood clot or hypertensi on Vs benefits of use, and reviewed ACHES symptoms. Importance of daily administra tion within the same 30 minute time frame reinforced to pt, and on use of condoms or abstinence if dosing schedule is interrupte d. Refills sent. Plan to F/U PRN or at next [facility]. [id number] [facility] [place] [address] [place] [address] 10/10/2021 14:58:30 10/10/2021 15:32:02 Irregular periods 18885748 N92.6 Will start on Lo Loestrin to see if this alleviates her sx Generalized headache 162 729996 R51.9 Discussed if headaches continue on Lo Loestrin use she will need to consider progestero ne only methods Surveillan ce of oral contraception 580643525 Z30.41 All risks/bene fits of Lo Loestrin discussed with patient Premenstru al tension syndrome 82962648 N94.3 Discussed OCP use versus SSRI use. She is interested in OCP use [id number] Mick Banda MD [facility] [address] [place] [address] 06/05/2022 10:37:09 06/11/2022 13:22:11 Premenstrual dysphoric disorder 751939 F32.81 Discussed at length medication options and [...] 1 month period of time Secondary dysmenorrhea 35212922 N94.5 Deep pain on intercourse 533714043 N94.12 Body mass index 40+ - severely obese 082091053 Z68.41 COUNSELING was provided today regarding the [...] weight loss. Download cognitive therapy APPs (CBT Care Technician, Kip) FOLLOW-UP: Schedule a follow-up visit in 1 month. Urgent ritika marisol to urinate 60891157 R39.15 [id number] Mick Banda MD [facility] [address] [place] [address] 06/09/2024 14:07:00 06/14/2024 13:37:36 Menometrorrhagia 137208827 N92.1 Discussed risks benefits of laparoscop ic vs laparotomy and possible injury to bowel bladder or ureter infection reoperatio n and possibilit y for blood transfusio n and discussed tubal ligation and multiple techniques and risk of with tubal ligation as well as ectopic if does become . Consent form was signed today. Deep pain on intercourse 601115506 N94.12 Positional . Secondary dysmenorrhea 71714495 N94.5 Discussed multiple options including pill, ablation, and hysterecto my. [id number] Mick Banda MD [facility] [address] [place] [address] 06/14/2024 15:44:43 06/16/2024 15:07:52 Menometrorrhagia 403006680 N92.1 Discussed risks benefits of laparoscop ic vs laparotomy and possible injury to bowel bladder or ureter infection reoperatio n and possibilit y for blood transfusio n and discussed tubal ligation and multiple techniques and risk of with tubal ligation as well as ectopic if does become . Consent form was signed today. Screening for malignant neoplasm of cervix 606121411 Z12.4 Health Concerns Section Related Observation LastModified by Organization Detai ls LastModified Time None Recorded Concern Status LastModified by Organization Details LastModified Time None Recorded Advance Directives Directive None Recorded Payers Insurance Date Sequence Insurance Name Policy Number Policy Irving Covered Member ID Irving Member ID Guarantor Name 06/22/2024 1 [facility] ON OR AFTER 10/26/20 (MEDICAID REPLACEMENT - HMO) Itzel Williamson [id number] Itzel Williamson Notes Date Note Type Note Provider Name and Address Organization Details Recorded Time 08/08/2021 text/html Contraception visitReported bypatient.Sexual HistorySexually active Menstrual cycle:Normal mensesNotes:bad PMS and dysmenorhea and 7 day heavy menses Patient wanting to discuss options on BC Mick Banda MD [facility], [place], [address], [employer] IV 08/26/2021 20:37:07 10/10/2021 text/html Itzel is here for c/o headaches on her current OCP, PMS sx, as well as irregular menses since starting on control 7 weeks ago. She is sexually active, but her partner has had a vasectomy. She is due for her pap, however, she cannot have this performed d/t being on a heavy cycle today. [facility] [address] [facility], [place], [address], [employer] IV 10/10/2021 16:16:41 06/05/2022 text/html Pelvic PainRepor [...] when not on cycle Mick Banda MD [address] [place] [address], [address], [facility] [employer] IV 06/10/2022 22:34:34 06/09/2024 text/html The patient dangelo harmon consented to documentation via virtual scribe for this encounter. Itzel is a 29-year-old woman who presents today for abnormal bleeding. Pt stated that she has her cycle every 2 weeks. She states her menses are painful and heavy, regular duration. Pt would like to know what are the alternative for BC or possibly a partial hysterectomy. Pt stated that she has had the abnormal periods since 01/2024. She denies any bleeding currently. She also reports experiencing pain and discomfort with intercourse. Itzel stated that her cycles are heavy and passing clots. She also reports pain associated with her cycles. She is due for her Pap smear, last done in 2019 Mick Banda MD [address] [place] [address], [place], [id number], [employer] [facility] IV 06/11/2024 18:46:41 06/14/2024 text/html The patient dangelo harmon consented to documentation via virtual scribe for this encounter. Itzel is a 29-year-old female who here for a follow up on her US from today. Patient had the US due to bi weekly periods. Patient had a abnormal pap smear in 2019 [facility] and would like it repeated with STD testing today as well. Mick Banda MD [address] [place] [address], [place], [address], [employer] IV 06/15/2024 18:12:29 OBGyn Episode Ob Episode Information Episode Created Date Number of Fetuses Patient Bloodtype Patient rh Status Prepregnancy Weight lbs Domestic Partner Domestic Partner Phone Father Name Rate Clerk Status 07/13/19 22 1 CLOSED Fetus Data First Name Last Name Admitted to NICU Weight (g) Sex Living Outcome Pediatric Complications Fetus ID Race Codes Race Delivery Type 2721.55 2 M [id number] Kt Calculation Initial Kt Date Initial Exam [...] Domestic Partner Domestic Partner Phone Father Name Rate Clerk Status 07/13/19 22 1 CLOSED Fetus Data First Name Last Name Admitted to NICU Weight (g) Sex Living Outcome Pediatric Complications Fetus ID Race Codes Race Delivery Type 3628.73 6 M [id number] Kt Calculation Initial Kt Date Initial Exam [...]
[2024-09-01 17:03] LABS: Hemoglobin 12.4 g/dL (12.0-15.0); Mean Corpuscular HGB Conc 31.8 g/dL (32-36); Mean Corpuscular Hemoglobin 27.2 pg (27.0-31.0); Mean Corpuscular Volume 85.5 fL (78.0-102.0); Mean Platelet Volume 9.4 fl (9.2-11.8); Platelet Count Result 279 K/mm3 (150-420); Red Blood Count 4.56 M/mm3 (4.20-5.40); Red Cell Distribution Width 12.8 % (11.6-14.4); White Blood Count 9.4 K/mm3 (4.8-10.8)
[2024-09-01 17:36] LABS: Alanine Aminotransferase 25 U/L (6-35); Albumin Level 4.3 g/dL (3.5-5.1); Alkaline Phosphatase 68 U/L (38-126); Anion Gap 2 mmol/L (4-12); Aspartate Amino Transferase 37 U/L (14-36); Bilirubin,Total 0.8 mg/dL (0.2-1.3); Blood Urea Nitrogen 13 mg/dL (7-17); CRP < 0.5 mg/dL (<1.0); Carbon Dioxide 29 mmol/L (22-30); Chloride 107 mmol/L (98-107); Estimated Glomerular Filt Rate > 60; Glucose 83 mg/dL (65-110); Osmolality Calculated 285 mOsm/kg (285-295); Potassium 4.5 mmol/L (3.4-5.0); Sodium 138 mmol/L (137-145); Total Protein 6.9 g/dL (6.3-8.2)
[2024-09-01 17:50] LABS: Free T4 Free Thyroxine 1.15 ng/dL (0.78-2.19)
[2024-09-01 18:05] LABS: Free T3 2.41 pg/mL (2.18-3.98)
[2024-09-01 18:06] LABS: Erythrocyte Sedimentation Rate 9 mm/hr (0-15)
== END 2024-09-01 16:43 | disposition home or self-care (01) ==
PROVIDERS: PCP Internal Medicine; Visit Provider Internal Medicine
DX: G62.9 Polyneuropathy, unspecified (principal); M53.82 Other specified dorsopathies, cervical region
CPT/HCPCS: 36415; 72040; 80053; 84439; 84443; 84481; 85027; 85652; 86140